=== PATIENT | female | born 1970 | race Caucasian/White ===

== ENCOUNTER → 2017-05-03 12:29 | Outpatient (CLI) | payer OTHER, SELFPAY ==
--- NOTE | 2017-05-03 12:34 | XR_ITS ---
XR hip RT 2-3V w/pelvis Ordering Physician: TAYLOR Whyte Patient Age: 46 years: Female HISTORY: ITS.REASON: right hip pain TECHNIQUE: 2 view right hip AP and frog-leg view with AP pelvis. COMPARISON :Five-view lumbar spine series which includes right hip and majority pelvis from 05/26/2016 FINDINGS The right femoral head and neck are intact with no fracture.. Femoral head normal density and contour Note cleft-like appearance at the superior rim of acetabulum appears similar on the AP pelvis view versus 2017 AP view of pelvis from lumbar spine series.. . There is minor step-off at the articular aspect of rim of right acetabulum on today's studies of right hip & I suspect underlying degenerative changes with subchondral cystic here... Most likely stable but suspect reflectsdeveloping degenerative changes right hip if progressive right hip pain this feature may warrant further investigation right hip with MR to further evaluate acetabular contour at the acetabular rim & acetabular labrum. . Left hip appears stable and satisfactory. Mild hypertrophic lipping at the rim of the left acetabulum is similar to that seen on right. AP pelvis. Intact. 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 This is a stable feature and was previously evident IMPRESSION No acute findings at the right hip. No fracture Minor hypertrophic lipping and with minor irregularity at the superior rim of acetabulum is seen bilaterally at the hips; most likely stable since 2017.
== END ==
PROVIDERS: PCP Physician Assistant; Visit Provider Physician Assistant
DX: M25.551 Pain in right hip (principal)
CPT/HCPCS: 73502

== ENCOUNTER 2017-05-03 22:26 | Emergency (ER) | payer OTHER, SELFPAY ==
[2017-05-03 22:30] VITALS: BP 157/73; PULSE 73; RESP 18; TEMP 36.7; O2SAT 96; BMI 54.1
--- NOTE | 2017-05-03 22:49 | HMH.EDUROGF ---
ED Disposition Clinical Impression: Cystitis Disposition: Home, Self-Care Condition on Discharge: Good Instructions: DI for Acute Cystitis Additional Instructions: use meds and see pcp for follow up and culture results Prescriptions: Ciprofloxacin HCl [Cipro 500mg Tab] 500 mg PO BID #14 tab Phenazopyridine HCl [Pyridium 200mg Tablet] 200 pow PO TID #6 tab Referrals: Chapis Bennett PA [Primary Care Provider] - - Critical Care Critical Care Time: No Attestation: On 05/03/17, the high probability of a clinically significant, sudden or life threatening deterioration of the following system(s) required my full and direct attention, intervention and personal management. The time I documented below is in addition to time spent performing reported procedures but includes the following listed in this critical care notation. Medical Decision Making - Medical Records Medical records reviewed: Yes: I reviewed the patient's medical records. Vital Signs: 05/03/17 22:30 Temperature 98.0 F Temperature Source Oral Pulse Rate [Right Radial] 73 Respiratory Rate 18 Blood Pressure [Right Arm] 157/73 Blood Pressure Mean [Right Arm] 101 Blood Pressure Source [Right Arm] Automatic Cuff Blood Pressure Position [Right Arm] Sitting 02 Sat by Pulse Oximetry 96 Oxygen Delivery Method Room Air - Lab Data Lab results reviewed: Yes: I reviewed the patient's lab results. Lab Results 05/03/17 22:53: Urine Color Yellow, Urine Appearance Clear, Urine pH 6.0, Ur Specific [place] 1.025, Urine Protein Negative, Urine Glucose (UA) Negative, Urine Ketones Negative, Urine Blood Negative, Urine Nitrate Negative, Urine Bilirubin Negative, Urine Urobilinogen 0.2, Ur Leukocyte Esterase Negative, Urine WBC 3-5, Ur Squamous Epith Cells 5-10, Urine Bacteria 1+ 05/03/17 22:53: Urine HCG, Qual Negative 05/03/17 23:38: WBC 8.9, RBC 4.11 L, Hgb 12.3, Hct 36.6 L, MCV 89.1, MCH 29.9, MCHC 33.6, RDW 13.5, Plt Count 241, MPV 7.6, Neut % (Auto) 57.9, Lymph % (Auto) 32.6, [place] % (Auto) 6.5, Eos % (Auto) 2.5, Baso % (Auto) 0.5, Neut # (Auto) 5.1, Lymph # (Auto) 2.9, [place] # (Auto) 0.6, Eos # (Auto) 0.2, Baso # (Auto) 0.0 05/03/17 23:38: Sodium 137, Potassium 4.1, Chloride 105, Carbon Dioxide 26, Anion Gap 10.1, BUN 18, Creatinine 0.83, Estimated Creat Clear 79, Estimated GFR 74, Est GFR ( Amer) 90, Glucose 137 H, Calcium 8.5, Total Bilirubin 0.1 L, AST 14 L, ALT 26, Alkaline Phosphatase 73, Total Protein 6.6, Albumin 2.8 L, Globulin 3.8 H, Albumin/Globulin Ratio 0.7 L Result diagrams: 05/03/17 23:38 05/03/17 23:38 Orders (Tests/Meds): ORDERS Category Date Time Status CT abdomen pelvis wo con Stat Cat Scan 05/03/17 23:25 Taken - CT Data CT Scan: Abdomen, Pelvis Time Received: 01:[address] Reviewed: Yes: I have viewed the radiologist's interpretation Preliminary Findings: Normal/NAD - Mason Inquiry Pt receiving controlled substance: No Female Urogenital HPI - General Chief complaint: Urogenital-Female Stated complaint: lower abd pain Time Seen by Provider: 05/03/17 22:50 Mode of Arrival: Ambulatory Source of Information: Patient, Relative, Medical Record Limitations: No Limitations Description of Symptoms (Recalled from ER Triage Doc. by RN): Pt reports sharp lower central abdominal pain that started suddenly about 45 minutes ago. Pt reports frequency and burning with urination, and lower back pain. - History of Present Illness HPI Narrative: lower abd pain with freq and dysuria which started tonight Complaint: dysuria Onset (ago): hour(s) Radiation: non-radiating Severity: moderate Duration: intermittent Relieving factors: none Exacerbating factors: urination Urinary Symptoms: dysuria, frequency : no - Related Data Home Medications Medication Instructions Recorded Confirmed amitriptyline 25 mg tablet 25 mg PO QHS 04/22/17 05/03/17 buspirone 5 mg tablet 5 mg PO ONCE 04/22/17 05/03/17 wilmar
[2017-05-03 22:53] LABS: Appearance,Urine CLEAR (Clear); Bilirubin,Urine Negative (Negative); Blood, Urine Negative (Negative); Color,Urine YELLOW (Yellow); Glucose,Urine (UA) Negative (Negative); Ketones,Urine Negative (Negative); Leukocyte Esterase,Urine Negative (Negative); Microscopic, Urine URINE MICROSCOPIC (MICROSCOPIC); Nitrate,Urine Negative (Negative); Protein,Urine Negative (Negative); Specific Gravity, Urine 1.025 (1.005-1.030); Urobilinogen,Urine 0.2 EU/dl (0.2)
[2017-05-03 23:01] LABS: Bacteria,Urine 1+ /lpf; Urine Pregnancy, HCG Qual. Negative (Negative)
--- NOTE | 2017-05-03 23:25 | CT_ITS ---
CT abdomen pelvis wo con CLINICAL INDICATION: Localize lower abdominal pain ITS.REASON: abd pain ORDERING PHYSICIAN: Ye Kenny MD PATIENT AGE: 46 years COMPARISON: None TECHNIQUE: Axial images obtained with sagittal and coronal reformats. PROCEDURE: Oral Contrast: None IV Contrast: None . FINDINGS: No acute finding in the lung bases. Suboptimal evaluation of bowel loops intra-abdominal organs due to lack of IV and oral contrast and due to patient's body habitus with extensive streak/beam hardening artifact. Fatty liver with mild hepatomegaly at 25 cm cephalad to caudad. No obvious focal liver lesions. Prior cholecystectomy without obvious biliary dilatation. Spleen, adrenal glands, pancreas, kidneys, ureters, and urinary bladder have an unremarkable unenhanced appearance. No intestinal obstruction or free air. Unremarkable appendix. No evidence of diverticulitis. No pelvic mass or focal inflammatory change. There is mild thickening of the distal esophagus with small hiatal hernia. Prior hysterectomy. No acute bony anomalies. IMPRESSION: 1. No acute abdominal pelvic findings. 2. Fatty liver with hepatomegaly. 3. Mild thickening of the distal esophagus which may be seen with esophagitis with small hiatal hernia
[2017-05-03 23:40] LABS: Basophils % 0.5 % (0.1-2.0); Eosinophils # 0.2 K/mm3 (0.0-0.4); Eosinophils % 2.5 % (0.1-12.0); Hematocrit 36.6 % (37.0-47.0); Hemoglobin 12.3 g/dL (12.2-16.2); Lymphocytes # 2.9 K/mm3 (0.7-4.5); Lymphocytes % 32.6 K/mm3 (10-50); Mean Corpuscular HGB Conc 33.6 g/dL (31.8-35.4); Mean Corpuscular Hemoglobin 29.9 pg (27.0-31.2); Mean Corpuscular Volume 89.1 fl (81-99); Mean Platelet Volume 7.6 fl (7.4-10.4); Monocytes # 0.6 K/mm3 (0.1-1.0); Monocytes % 6.5 % (1.7-9.3); Neutrophils # 5.1 K/mm3 (1.8-7.8); Neutrophils % 57.9 % (37.0-80.0); Platelet Count 241 K/mm3 (142-424); Red Blood Count 4.11 M/mm3 (4.20-5.40); Red Cell Distribution Width 13.5 % (11.5-17.5); White Blood Count 8.9 K/mm3 (4.8-10.8)
[2017-05-03 23:52] LABS: Alanine Aminotransferase 26 U/L (12-78); Albumin Level 2.8 gm/dL (3.4-5.0); Albumin/Globulin Ratio 0.7 (1.1-1.8); Alkaline Phosphatase 73 U/L (46-116); Anion Gap 10.1 mEq/L (5-15); Aspartate Amino Transferase 14 U/L (15-37); Bilirubin,Total 0.1 mg/dL (0.2-1.0); Blood Urea Nitrogen 18 mg/dL (7-18); Calcium 8.5 mg/dL (8.5-10.1); Carbon Dioxide 26 mmol/L (21.0-32.0); Chloride 105 mmol/L (98-107); Creatinine Clearance Estimated 79 mL/min (0-300); Creatinine,Serum 0.83 mg/dL (0.55-1.02); Estimated Glomerular Filt Rate 74 ml/min (>60); GFR (African American) 90 ML/MIN (>60); Globulin 3.8 gm/dl (1.3-3.2); Glucose 137 mg/dL (74-106); Potassium 4.1 mmoL/L (3.5-5.1); Sodium 137 mmol/L (136-145); Total Protein,Serum 6.6 gm/dL (6.4-8.2)
[2017-05-04 01:21] VITALS: BP 150/70; PULSE 70; RESP 18; TEMP 36.7; O2SAT 98
== END 2017-05-04 01:21 | disposition home or self-care (01) ==
PROVIDERS: Emergency Provider Emergency Medicine; Family Provider Physician Assistant; PCP Physician Assistant
DX: N30.00 Acute cystitis without hematuria (principal); K21.9 Gastro-esophageal reflux disease without esophagitis; E78.5 Hyperlipidemia, unspecified; I10 Essential (primary) hypertension; F41.8 Other specified anxiety disorders; Z88.0 Allergy status to penicillin; Z79.899 Other long term (current) drug therapy
CPT/HCPCS: 74176; 80053; 81001; 81025; 85025; 87086; 99282

== ENCOUNTER 2017-05-20 18:32 | Emergency (ER) | payer OTHER, SELFPAY ==
[2017-05-20 19:32] VITALS: BP 155/85; PULSE 90; RESP 12; TEMP 37.3; O2SAT 98; BMI 117.4
--- NOTE | 2017-05-20 19:58 | CT_ITS ---
CT abdomen pelvis wo con CLINICAL INDICATION: Nausea, vomiting, and diarrhea ITS.REASON: ABD PAIN, N/V/D ORDERING PHYSICIAN: Lj Hayes MD PATIENT AGE: 46 years COMPARISON: 05/03/2017 TECHNIQUE: Axial images obtained with sagittal and coronal reformats. PROCEDURE: Oral Contrast: None IV Contrast: None . FINDINGS: Lung bases are clear. Mild thickening of the distal esophagus with small hiatal hernia as before which may be seen with esophagitis There is mild hepatic steatosis with mild hepatomegaly. No focal liver lesion is evident. Prior cholecystectomy. The spleen, adrenal glands, pancreas, and kidneys are unremarkable. No intestinal obstruction or free air. Unremarkable appendix scattered diverticula without diverticulitis. No acute bony anomalies. IMPRESSION: 1. No acute intra-abdominal or pelvic findings 2. Fatty liver with mild hepatomegaly. 3. Mild thickening of the distal esophagus with small hiatal hernia
[2017-05-20 20:05] LABS: Basophils % 0.2 % (0.1-2.0); Eosinophils # 0.2 K/mm3 (0.0-0.4); Eosinophils % 1.3 % (0.1-12.0); Hematocrit 46.5 % (37.0-47.0); Hemoglobin 15.1 g/dL (12.2-16.2); Lymphocytes # 1.1 K/mm3 (0.7-4.5); Lymphocytes % 8.6 K/mm3 (10-50); Mean Corpuscular HGB Conc 32.5 g/dL (31.8-35.4); Mean Corpuscular Hemoglobin 29.7 pg (27.0-31.2); Mean Corpuscular Volume 91.5 fl (81-99); Mean Platelet Volume 7.4 fl (7.4-10.4); Monocytes # 0.6 K/mm3 (0.1-1.0); Neutrophils # 10.4 K/mm3 (1.8-7.8); Neutrophils % 84.8 % (37.0-80.0); Platelet Count 258 K/mm3 (142-424); Red Blood Count 5.08 M/mm3 (4.20-5.40); Red Cell Distribution Width 13.4 % (11.5-17.5); White Blood Count 12.2 K/mm3 (4.8-10.8)
[2017-05-20 20:17] LABS: Albumin Level 3.1 gm/dL (3.4-5.0); Albumin/Globulin Ratio 0.7 (1.1-1.8); Alkaline Phosphatase 92 U/L (46-116); Amylase 59 U/L (25-125); Anion Gap 13.2 mEq/L (5-15); Aspartate Amino Transferase 24 U/L (15-37); Bilirubin,Total 0.3 mg/dL (0.2-1.0); Blood Urea Nitrogen 17 mg/dL (7-18); Calcium 8.5 mg/dL (8.5-10.1); Carbon Dioxide 27 mmol/L (21.0-32.0); Chloride 101 mmol/L (98-107); Creatinine Clearance Estimated 65 mL/min (0-300); Creatinine,Serum 1.01 mg/dL (0.55-1.02); Estimated Glomerular Filt Rate 59 ml/min (>60); GFR (African American) 71 ML/MIN (>60); Globulin 4.6 gm/dl (1.3-3.2); Glucose 119 mg/dL (74-106); Lipase 162 u/L (73-393); Potassium 4.2 mmoL/L (3.5-5.1); Sodium 137 mmol/L (136-145); Total Protein,Serum 7.7 gm/dL (6.4-8.2)
[2017-05-20 20:44] LABS: Alanine Aminotransferase 40 U/L (12-78)
[2017-05-20 21:03] VITALS: BP 155/84; PULSE 87; RESP 18; TEMP 37.7; O2SAT 97
[2017-05-20 21:30] VITALS: BP 149/82; PULSE 83; RESP 14; O2SAT 97
--- NOTE | 2017-05-20 21:35 | HMH.EDNVD ---
ED Disposition Clinical Impression: Gastroenteritis Disposition: Home, Self-Care Condition on Discharge: Good Instructions: DI for Viral Gastroenteritis -- Adult Additional Instructions: Fluids, take the Zofran as needed for nausea/vomiting and [id number] Imodium as needed for diarrhea. If not better follow-up with your family doctor within 24 hours. Prescriptions: Ondansetron [Zofran 4mg ODT] 4 mg PO QIDP PRN #20 tab.rapdis PRN Reason: Nausea Referrals: Chapis Bennett PA [Primary Care Provider] - Time of Disposition: 21:36 - Critical Care Critical Care Time: No Attestation: On 05/20/17, the high probability of a clinically significant, sudden or life threatening deterioration of the following system(s) required my full and direct attention, intervention and personal management. The time I documented below is in addition to time spent performing reported procedures but includes the following listed in this critical care notation. Medical Decision Making - Medical Records Medical records reviewed: Yes: I reviewed the patient's medical records. Vital Signs: 05/20/17 19:32 05/20/17 21:03 05/20/17 21:30 Temperature 99.1 F 99.9 F H Temperature Source Oral Oral Pulse Rate Pulse Rate [Right Brachial] 90 87 83 Respiratory Rate 12 18 14 Blood Pressure Blood Pressure [Right Arm] 155/85 155/84 149/82 Blood Pressure Mean [Right Arm] 108 107 104 Blood Pressure Source Blood Pressure Source [Right Arm] Automatic Cuff Automatic Cuff Automatic Cuff Blood Pressure Position Blood Pressure Position [Right Arm] Sitting Sitting Sitting 02 Sat by Pulse Oximetry 98 97 97 Oxygen Delivery Method Room Air Room Air Room Air 05/20/17 21:56 Temperature 99.3 F Temperature Source Oral Pulse Rate 84 Pulse Rate [Right Brachial] Respiratory Rate 18 Blood Pressure 149/82 Blood Pressure [Right Arm] Blood Pressure Mean [Right Arm] Blood Pressure Source Automatic Cuff Blood Pressure Source [Right Arm] Blood Pressure Position Sitting Blood Pressure Position [Right Arm] 02 Sat by Pulse Oximetry Oxygen Delivery Method Room Air - Lab Data Lab results reviewed: Yes: I reviewed the patient's lab results. Lab Results 05/20/17 19:45: WBC 12.2 H, RBC 5.08, Hgb 15.1, Hct 46.5, MCV 91.5, MCH 29.7, MCHC 32.5, RDW 13.4, Plt Count 258, MPV 7.4, Neut % (Auto) 84.8 H, Lymph % (Auto) 8.6 L, [place] % (Auto) 5.0, Eos % (Auto) 1.3, Baso % (Auto) 0.2, Neut # (Auto) 10.4 H, Lymph # (Auto) 1.1, [place] # (Auto) 0.6, Eos # (Auto) 0.2, Baso # (Auto) 0.0 05/20/17 19:45: Sodium 137, Potassium 4.2, Chloride 101, Carbon Dioxide 27, Anion Gap 13.2, BUN 17, Creatinine 1.01, Estimated Creat Clear 65, Estimated GFR 59, Est GFR ( Amer) 71, Glucose 119 H, Calcium 8.5, Total Bilirubin 0.3, AST 24, ALT 40, Alkaline Phosphatase 92, Total Protein 7.7, Albumin 3.1 L, Globulin 4.6 H, Albumin/Globulin Ratio 0.7 L, Amylase 59, Lipase 162 Result diagrams: 05/20/17 19:45 05/20/17 19:45 Orders (Tests/Meds): ED MEDICATIONS Discontinued Medications Generic Name Dose Route Start Last Admin Trade Name Freq PRN Reason Stop Dose Admin Diphenoxylate HCl/Atropine 5 mg 05/20/17 20:51 05/20/17 20:56 Lomotil 2.5mg Tablet PO 05/20/17 20:52 5 mg ONCE ONE Administration Sodium Chloride 1,000 mls @ 999 mls/hr 05/20/17 20:00 05/20/17 20:03 Sod Chlor 0.9% 1000ml Bag IV 05/20/17 21:00 999 mls/hr .Q1H1M NASIR Administration Loperamide HCl 4 mg 05/20/17 20:51 05/20/17 20:55 Imodium 2 Mg Capsule PO 05/20/17 20:52 4 mg ONCE ONE Administration Ondansetron HCl 4 mg 05/20/17 19:59 05/20/17 20:02 Zofran 4mg/2ml Vial IV 05/20/17 20:00 4 mg ONCE ONE Administration Promethazine HCl 12.5 mg 05/20/17 20:33 05/20/17 20:46 Phenergan 25mg/Ml 1ml Vial IV 05/20/17 20:34 12.5 mg ONCE ONE Administration Promethazine HCl 1 kanwal 05/20/17 21:38 05/20/17 21:45 Phenergan 25mg Tablet Take Home Pac
--- NOTE | 2017-05-20 21:38 | ED_ITS ---
ED Disposition Clinical Impression: Gastroenteritis Disposition: Home, Self-Care Condition on Discharge: Good Instructions: DI for Viral Gastroenteritis -- Adult Additional Instructions: Fluids, take the Zofran as needed for nausea/vomiting and [id number] Imodium as needed for diarrhea. If not better follow-up with your family doctor within 24 hours. Prescriptions: Ondansetron [Zofran 4mg ODT] 4 mg PO QIDP PRN #20 tab.rapdis PRN Reason: Nausea Referrals: Chapis Bennett PA [Primary Care Provider] - Time of Disposition: 21:36 - Critical Care Critical Care Time: No Attestation: On 05/20/17, the high probability of a clinically significant, sudden or life threatening deterioration of the following system(s) required my full and direct attention, intervention and personal management. The time I documented below is in addition to time spent performing reported procedures but includes the following listed in this critical care notation. Medical Decision Making - Medical Records Medical records reviewed: Yes: I reviewed the patient's medical records. Vital Signs: 05/20/17 19:32 05/20/17 21:03 05/20/17 21:30 Temperature 99.1 F 99.9 F H Temperature Source Oral Oral Pulse Rate Pulse Rate [Right Brachial] 90 87 83 Respiratory Rate 12 18 14 Blood Pressure Blood Pressure [Right Arm] 155/85 155/84 149/82 Blood Pressure Mean [Right Arm] 108 107 104 Blood Pressure Source Blood Pressure Source [Right Arm] Automatic Cuff Automatic Cuff Automatic Cuff Blood Pressure Position Blood Pressure Position [Right Arm] Sitting Sitting Sitting 02 Sat by Pulse Oximetry 98 97 97 Oxygen Delivery Method Room Air Room Air Room Air 05/20/17 21:56 Temperature 99.3 F Temperature Source Oral Pulse Rate 84 Pulse Rate [Right Brachial] Respiratory Rate 18 Blood Pressure 149/82 Blood Pressure [Right Arm] Blood Pressure Mean [Right Arm] Blood Pressure Source Automatic Cuff Blood Pressure Source [Right Arm] Blood Pressure Position Sitting Blood Pressure Position [Right Arm] 02 Sat by Pulse Oximetry Oxygen Delivery Method Room Air - Lab Data Lab results reviewed: Yes: I reviewed the patient's lab results. Lab Results 05/20/17 19:45: WBC 12.2 H, RBC 5.08, Hgb 15.1, Hct 46.5, MCV 91.5, MCH 29.7, MCHC 32.5, RDW 13.4, Plt Count 258, MPV 7.4, Neut % (Auto) 84.8 H, Lymph % (Auto ) 8.6 L, [place] % (Auto) 5.0, Eos % (Auto) 1.3, Baso % (Auto) 0.2, Neut # (Auto) 10.4 H, Lymph # (Auto) 1.1, [place] # (Auto) 0.6, Eos # (Auto) 0.2, Baso # (Auto) 0.0 05/20/17 19:45: Sodium 137, Potassium 4.2, Chloride 101, Carbon Dioxide 27, Anion Gap 13.2, BUN 17, Creatinine 1.01, Estimated Creat Clear 65, Estimated GFR 59, Est GFR ( Amer) 71, Glucose 119 H, Calcium 8.5, Total Bilirubin 0.3, AST 24, ALT 40, Alkaline Phosphatase 92, Total Protein 7.7, Albumin 3.1 L, Globulin 4.6 H, Albumin/Globulin Ratio 0.7 L, Amylase 59, Lipase 162 Result diagrams: 05/20/17 19:45 05/20/17 19:45 Orders (Tests/Meds): ED MEDICATIONS Discontinued Medications Generic Name Dose Route Start Last Admin Trade Name Freq PRN Reason Stop Dose Admin Diphenoxylate HCl/Atropine 5 mg 05/20/17 20:51 05/20/17 20:56 Lomotil 2.5mg Tablet PO 05/20/17 20:52 5 mg
[2017-05-20 21:56] VITALS: BP 149/82; PULSE 84; RESP 18; TEMP 37.4; O2SAT 97
== END 2017-05-20 21:40 | disposition home or self-care (01) ==
LOC: UTC 18:37 → ER 19:24
PROVIDERS: Emergency Medicine; Emergency Provider Emergency Medicine; Family Provider Physician Assistant; PCP Physician Assistant
DX: K52.9 Noninfective gastroenteritis and colitis, unspecified (principal); K21.9 Gastro-esophageal reflux disease without esophagitis; E78.5 Hyperlipidemia, unspecified; I10 Essential (primary) hypertension; F41.8 Other specified anxiety disorders; Z79.899 Other long term (current) drug therapy; Z88.0 Allergy status to penicillin
CPT/HCPCS: 74176; 80053; 82150; 83690; 85025; 96365; 96367; 96374; 96375; 99283; J2405

== ENCOUNTER → 2018-03-30 08:10 | Outpatient (CLI) | payer OTHER, SELFPAY ==
[2018-03-30 08:34] LABS: Basophils # 0.1 K/mm3 (0-0.2); Basophils % 0.6 % (0.1-2.0); Eosinophils # 0.2 K/mm3 (0.0-0.4); Eosinophils % 1.9 % (0.1-12.0); Hematocrit 40.7 % (37.0-47.0); Lymphocytes # 3.1 K/mm3 (0.7-4.5); Lymphocytes % 29.4 % (10-50); Mean Corpuscular HGB Conc 31.8 g/dL (31.8-35.4); Mean Corpuscular Hemoglobin 29.7 pg (27.0-31.2); Mean Corpuscular Volume 93.4 fl (81-99); Mean Platelet Volume 7.3 fl (7.4-10.4); Monocytes # 0.6 K/mm3 (0.1-1.0); Monocytes % 5.9 % (1.7-9.3); Neutrophils # 6.5 K/mm3 (1.8-7.8); Neutrophils % 62.3 % (37.0-80.0); Platelet Count 294 K/mm3 (142-424); Red Blood Count 4.36 M/mm3 (4.20-5.40); Red Cell Distribution Width 13.7 % (11.5-17.5); White Blood Count 10.4 K/mm3 (4.8-10.8)
[2018-03-30 10:14] LABS: Alanine Aminotransferase 24 U/L (12-78); Albumin Level 2.8 gm/dL (3.4-5.0); Albumin/Globulin Ratio 0.7 (1.1-1.8); Alkaline Phosphatase 84 U/L (46-116); Anion Gap 14.1 mEq/L (5-15); Aspartate Amino Transferase 15 U/L (15-37); Bilirubin,Total 0.3 mg/dL (0.2-1.0); Blood Urea Nitrogen 13 mg/dL (7-18); Calcium 8.7 mg/dL (8.5-10.1); Carbon Dioxide 26 mmol/L (21.0-32.0); Chloride 104 mmol/L (98-107); Chol/HDL Ratio 4.4 (1-3.5); Cholesterol 179 mg/dL (140-200); Creatinine,Serum 0.86 mg/dL (0.55-1.02); Estimated Glomerular Filt Rate 71 ml/min (>60); GFR (African American) 86 ML/MIN (>60); Globulin 3.8 gm/dl (1.3-3.2); Glucose 145 mg/dL (74-106); HDL Cholesterol 41 mg/dL (29-89); LDL Cholesterol 80 mg/dL (0-130); Potassium 4.1 mmoL/L (3.5-5.1); Sodium 140 mmol/L (136-145); Thyroid Stimulating Hormone 7.84 uIU/ml (0.358-3.740); Total Protein,Serum 6.6 gm/dL (6.4-8.2); Triglycerides 289 mg/dL (30-200); VLDL Cholesterol 58 mg/dL (0-40)
== END ==
PROVIDERS: Visit Provider Nurse Practitioner Family
DX: R53.83 Other fatigue (principal); E78.5 Hyperlipidemia, unspecified; E03.9 Hypothyroidism, unspecified
CPT/HCPCS: 36415; 80053; 80061; 82652; 84443; 85025

== ENCOUNTER → 2018-04-06 08:20 | Outpatient (CLI) | payer OTHER, SELFPAY ==
--- NOTE | 2018-04-06 08:21 | US_ITS ---
US abdomen complete HISTORY: ITS.REASON: abdominal pain ORDERING PHYSICIAN: Neida Pop PATIENT AGE: 47 years COMPARISON: None FINDINGS: The study is limited technically due to patient's body habitus. PANCREAS:Unremarkable. No obvious mass or abnormal fluid collection. No ductal dilatation LIVER:Fatty liver. Postcholecystectomy. Appropriate direction of blood flow within the portal vein. No obvious liver lesions demonstrated RIGHT KIDNEY:Not well delineated. No obvious hydronephrosis LEFT KIDNEY:Unremarkable. No hydronephrosis. Normal size and echogenicity. GALLBLADDER:Status post cholecystectomy. Common bile duct is normal at 4 mm. AORTA:Not imaged SPLEEN:Unremarkable. Normal size and echogenicity ASCITES:None demonstrated. IMPRESSION: Status post cholecystectomy. Fatty liver. Otherwise negative abdominal ultrasound with limitations
== END ==
PROVIDERS: PCP Nurse Practitioner Family; Visit Provider Nurse Practitioner Family
DX: R10.9 Unspecified abdominal pain (principal)
CPT/HCPCS: 76700

== ENCOUNTER → 2018-05-19 14:03 | Outpatient (CLI) | payer OTHER, SELFPAY ==
[2018-05-19 14:42] LABS: Basophils # 0.1 K/mm3 (0-0.2); Basophils % 0.7 % (0.1-2.0); Eosinophils # 0.3 K/mm3 (0.0-0.4); Eosinophils % 2.6 % (0.1-12.0); Hematocrit 38.7 % (37.0-47.0); Hemoglobin 12.5 g/dL (12.2-16.2); Lymphocytes % 20.4 % (10-50); Mean Corpuscular HGB Conc 32.2 g/dL (31.8-35.4); Mean Corpuscular Hemoglobin 29.4 pg (27.0-31.2); Mean Corpuscular Volume 91.2 fl (81-99); Mean Platelet Volume 7.7 fl (7.4-10.4); Monocytes # 0.3 K/mm3 (0.1-1.0); Monocytes % 3.3 % (1.7-9.3); Neutrophils % 73.1 % (37.0-80.0); Platelet Count 241 K/mm3 (142-424); Red Blood Count 4.24 M/mm3 (4.20-5.40); White Blood Count 9.6 K/mm3 (4.8-10.8)
[2018-05-19 15:25] LABS: Alanine Aminotransferase 25 U/L (12-78); Albumin Level 2.6 gm/dL (3.4-5.0); Albumin/Globulin Ratio 0.7 (1.1-1.8); Alkaline Phosphatase 89 U/L (46-116); Anion Gap 13.1 mEq/L (5-15); Aspartate Amino Transferase 18 U/L (15-37); Bilirubin,Total 0.2 mg/dL (0.2-1.0); Blood Urea Nitrogen 12 mg/dL (7-18); Calcium 8.5 mg/dL (8.5-10.1); Carbon Dioxide 25 mmol/L (21.0-32.0); Chloride 103 mmol/L (98-107); Creatinine,Serum 0.83 mg/dL (0.55-1.02); Estimated Glomerular Filt Rate 74 ml/min (>60); Ferritin 62 ng/mL (8-388); GFR (African American) 89 ML/MIN (>60); Globulin 3.9 gm/dl (1.3-3.2); Glucose 206 mg/dL (74-106); Potassium 4.1 mmoL/L (3.5-5.1); Sodium 137 mmol/L (136-145); Total Protein,Serum 6.5 gm/dL (6.4-8.2)
[2018-05-19 15:56] LABS: INR 0.94 (0.9-1.1); Prothrombin Time 9.7 seconds (9.4-11.8)
[2018-05-21 08:33] LABS: Hep B Core Ab, Total Negative (Negative); Hepatitis B Surface Antigen Negative (Negative); Iron 77 ug/dL (27-159); Iron Saturation 24 % (15-55); UIBC 243 ug/dL (131-425)
[2018-05-21 10:15] LABS: Hep A Ab, Total Negative (Negative); Hepatitis B Surf Ab Quant <3.1 mIU/mL (Immunity>9.9); Hepatitis C Antibody <0.1 s/co ratio (0.0-0.9)
[2018-05-23 07:59] LABS: Actin (Smooth Muscle) Antibody 8 Units (0-19); Mitochondrial (M2) Antibody 15.8 Units (0.0-20.0)
[2018-05-24 03:11] LABS: Antinuclear Antibodies, IFA Positive (.)
[2018-05-26 16:22] LABS: Alpha-1-Antitrypsin 187 mg/dL (90-200)
== END ==
PROVIDERS: Visit Provider Internal Medicine
DX: K76.0 Fatty (change of) liver, not elsewhere classified (principal)
CPT/HCPCS: 36415; 80053; 82103; 82104; 82728; 83540; 83550; 85025; 85610; 86038; 86255; 86256; 86704; 86706; 86708; 87340; 87380

== ENCOUNTER → 2018-05-20 14:23 | Outpatient (CLI) | payer OTHER, SELFPAY ==
[2018-05-24 06:15] LABS: ALT (SGPT) P5P 18 IU/L (0-40); AST (SGOT) P5P 22 IU/L (0-40); Alpha 2-Macroglobulins, Qn 165 mg/dL (110-276); Apolipoprotein A-1 167 mg/dL (116-209); Bilirubin, Total 0.2 mg/dL (0.0-1.2); Cholesterol, Total 166 mg/dL (100-199); Fibrosis Score 0.04 (0.00-0.21); GGT 43 IU/L (0-60); Glucose 114 mg/dL (65-99); Haptoglobin 241 mg/dL (34-200); Steatosis Score 0.62 (0.00-0.30); Triglycerides 185 mg/dL (0-149)
== END ==
PROVIDERS: Visit Provider Internal Medicine
DX: K76.0 Fatty (change of) liver, not elsewhere classified (principal)
CPT/HCPCS: 36415; 81256

== ENCOUNTER → 2018-06-24 11:20 | Outpatient (CLI) | payer OTHER, SELFPAY ==
--- NOTE | 2018-06-24 11:46 | XR_ITS ---
XR chest 2V HISTORY: ITS.REASON: cough ORDERING PHYSICIAN: Neida Pop PATIENT AGE: 47 years COMPARISON: 08/27/2016 FINDINGS: There is borderline cardiomegaly without failure. Lungs are clear. Degenerative changes are present in the thoracic spine. IMPRESSION: Borderline cardiomegaly, no change with no acute finding
== END ==
PROVIDERS: PCP Nurse Practitioner Family; Visit Provider Nurse Practitioner Family
DX: R06.02 Shortness of breath (principal); R05 Cough
CPT/HCPCS: 36415; 71046; 83880

== ENCOUNTER → 2018-06-27 14:36 | Outpatient (CLI) | payer OTHER, SELFPAY ==
--- NOTE | 2018-06-27 14:39 | XR_ITS ---
XR knee LT 3V HISTORY: Medial pain, prior popping sound ITS.REASON: pain ORDERING PHYSICIAN: Neida Pop PATIENT AGE: 47 years COMPARISON: None FINDINGS: No fracture or dislocation. No lytic or blastic change. Normal mineralization. There is slight decrease in the joint space medially. No significant hypertrophic change evident. No other significant findings IMPRESSION: Slight decrease in the joint space medially which may be related to mild osteoarthritic change otherwise negative
== END ==
PROVIDERS: PCP Emergency Medicine; Visit Provider Nurse Practitioner Family
DX: M25.562 Pain in left knee (principal)
CPT/HCPCS: 73562

== ENCOUNTER → 2018-08-09 13:13 | Outpatient (CLI) | payer OTHER, SELFPAY | PROVIDERS: PCP Nurse Practitioner Family; Visit Provider Nurse Practitioner Family | DX: R06.02 Shortness of breath (principal); R06.83 Snoring; G47.33 Obstructive sleep apnea (adult) (pediatric) | CPT/HCPCS: 95806 ==

== ENCOUNTER → 2018-08-11 12:51 | Outpatient (CLI) | payer OTHER, SELFPAY ==
--- NOTE | 2018-08-11 12:52 | CA_ITS ---
PROCEDURE: 2-D M-mode and color Doppler study INDICATIONS FOR THE TEST: Chest pain+ COPD Heart Murmur Tobacco Smoking Palpitations Fatigue+ Syncope Edema+ Hypertension+Diabetes Mellitus Rheumatic Fever SOB+JEFFRIES+Obesity Hyperlipidemia+ Family History HD Additional History GERD PATIENT INFORMATION HEIGHT: 66 WEIGHT: 332 GENDER: Female B/P: 144/69 2-D/M-MODE INTERPRETATION: 2-D MEASUREMENTS OBSERVED VALUES IN CMS Right Ventricular Dimension (RVDd) 2.8 Interventricular Septum (Thickness)(IVsd) 1.0 Left Ventricular Internal Dimensions(LVIDd) 4.9 Left Ventricular Posterior Wall (Thickness)(LVPWd) 1.0 Aortic Root 3.1 Aortic Cusp Separation 2.3 Left Atrial Dimensions (LAD) 3.6 2D 1. Left atrium is mildly enlarged, left ventricle is normal size, mild qualitative concentric left ventricular hypertrophy, visually estimated ejection fraction 55% with no regional wall motion abnormality. 2. The right atrium is normal size, right ventricle is mildly enlarged with normal contractility. 3. The aortic valve is minimally thickened and fibrosed. 4. The mitral and tricuspid valvular grossly normal. 5. The pulmonic valve is poorly visualized. 6. No significant pericardial effusion noted. DOPPLER INTERROGATION: Doppler interrogation of the aortic, mitral and tricuspid valvular presence of mild mitral and tricuspid regurgitation, tricuspid regurgitation jet velocity is inadequate for calculation of the right ventricular systolic pressure, grade 1 diastolic dysfunction seen without tissue Doppler evidence of raised left atrial pressure. CONCLUSION: 1. Normal left ventricular size, mild concentric left ventricular hypertrophy, visually estimated ejection fraction 55% with no regional wall motion abnormality, grade 1 diastolic dysfunction seen without tissue Doppler evidence of raised left atrial pressure. 2. Mildly enlarged right ventricle with normal contractility. 3. Mild mitral and tricuspid regurgitation 4. No significant pericardial effusion noted.
== END ==
PROVIDERS: PCP Nurse Practitioner Family; Visit Provider Internal Medicine
DX: R06.00 Dyspnea, unspecified (principal); R07.9 Chest pain, unspecified; E78.5 Hyperlipidemia, unspecified; I10 Essential (primary) hypertension; I51.89 Other ill-defined heart diseases; R60.0 Localized edema
CPT/HCPCS: 93306

== ENCOUNTER → 2018-08-15 16:01 | Outpatient (CLI) | payer OTHER, SELFPAY ==
[2018-08-15 18:07] LABS: Thyroid Stimulating Hormone 3.59 uIU/ml (0.358-3.740)
[2018-08-19 06:24] LABS: H. pylori Breath Test Negative (Negative)
== END ==
PROVIDERS: Visit Provider Nurse Practitioner Family
DX: R10.9 Unspecified abdominal pain (principal); E03.9 Hypothyroidism, unspecified
CPT/HCPCS: 36415; 83013; 84443

== ENCOUNTER → 2018-11-22 13:27 | Outpatient (CLI) | payer OTHER, SELFPAY ==
--- NOTE | 2018-11-22 13:28 | US_ITS ---
APPROVED REPORT Exam Type: Lower Extremity Segmental Pressures Soap Slabber: Nicole Best RVT Indications Claudication: Bilaterally Rest Pain: Bilaterally Risk Factors Hypertension Hyperlipidemia Obesity Pressures/Indices Right Indices Left Indices Brachial 160.00 mmHg Brachial 159.00 mmHg Low Thigh 178.00 mmHg 1.11 Low Thigh 181.00 mmHg 1.13 Calf 196.00 mmHg 1.23 Calf 194.00 mmHg 1.21 Ankle(PT) 202.00 mmHg 1.26 Ankle(PT) 202.00 mmHg 1.26 Ankle(DP) 190.00 mmHg 1.19 Ankle(DP) 197.00 mmHg 1.23 Digit 161.00 mmHg 1.01 Digit 156.00 mmHg 0.98 Findings RT EDENILSON: 1.26 LT EDENILSON: 1.26 RT TBI: 1.01 LT TBI:0.98 NORMAL PULSES BILATERAL. NORMAL WAVEFORMS BILATERAL. Conclusion Normal Electronically signed by : Ferny Jeffries MD 11/23/2018 20:03:41
== END ==
PROVIDERS: PCP Emergency Medicine; Visit Provider Nurse Practitioner Family
DX: M79.604 Pain in right leg (principal); M79.605 Pain in left leg; R53.1 Weakness
CPT/HCPCS: 93923

== ENCOUNTER → 2019-01-23 11:48 | Outpatient (CLI) | payer OTHER, SELFPAY ==
--- NOTE | 2019-01-23 12:18 | XR_ITS ---
PROCEDURE: XR LUMBAR SPINE 2-3V CLINICAL INDICATION: pain COMPARISON: No exams were available for comparison FINDINGS: There is degenerative disc disease at L1-L2 L2-L3 and L5-S1. There is partial lumbarization of S1. No fracture or dislocation. No lytic or blastic change. IMPRESSION: Mild degenerative changes Dictated by: Ferny Jeffries MD 01/23/2019 13:41 Electronically signed by Ferny Jeffries MD in [place] 01/23/2019 13:41
[2019-01-23 12:36] LABS: Erythrocyte Sedimentation Rate 25 mm/hr (0-20)
[2019-01-23 13:53] LABS: C-Reactive Protein 0.9 mg/dL (0.0-0.9); Chol/HDL Ratio 3.8 (1-3.5); Cholesterol 181 mg/dL (140-200); HDL Cholesterol 48 mg/dL (29-89); LDL Cholesterol 91 mg/dL (0-130); Triglycerides 211 mg/dL (30-200); VLDL Cholesterol 42 mg/dL (0-40)
[2019-01-24 09:20] LABS: RA Latex Turbid. <10.0 IU/mL (0.0-13.9)
[2019-01-24 11:12] LABS: Anti-Centromere B Antibodies <0.2 AI (0.0-0.9); Anti-Jo-1 <0.2 AI (0.0-0.9); Anti-Smith Antibody <0.2 AI (0.0-0.9); Antichromatin Antibodies <0.2 AI (0.0-0.9); Antiscleroderma-70 Antibodies 0.2 AI (0.0-0.9); RNP Antibodies <0.2 AI (0.0-0.9); Sjogren's Anti-SS-A <0.2 AI (0.0-0.9); Sjogren's Anti-SS-B <0.2 AI (0.0-0.9)
[2019-01-24 13:17] LABS: Anti-DNA (DS) Ab Qn <1 IU/mL (0-9)
[2019-01-25 02:13] LABS: PTT-LA 28.8 sec (0.0-51.9); dRVVT 40.4 sec (0.0-47.0)
[2019-01-25 12:19] LABS: Lupus Reflex Interpretation Comment: (.)
== END ==
PROVIDERS: PCP Emergency Medicine; Visit Provider Nurse Practitioner Family
DX: E78.5 Hyperlipidemia, unspecified (principal); M25.50 Pain in unspecified joint; M54.9 Dorsalgia, unspecified
CPT/HCPCS: 36415; 72100; 80061; 85613; 85651; 86140; 86225; 86235; 86431

== ENCOUNTER → 2019-02-06 09:39 | Outpatient (POV) | payer OTHER, SELFPAY ==
[2019-02-06 14:37] LABS: Anion Gap 13.6 mEq/L (5-15); Blood Urea Nitrogen 21 mg/dL (7-18); Calcium 8.5 mg/dL (8.5-10.1); Carbon Dioxide 26 mmol/L (21.0-32.0); Chloride 102 mmol/L (98-107); Creatinine,Serum 1.13 mg/dL (0.55-1.02); Estimated Glomerular Filt Rate 51 ml/min (>60); GFR (African American) 62 ML/MIN (>60); Glucose 136 mg/dL (74-106); Potassium 3.6 mmoL/L (3.5-5.1); Sodium 138 mmol/L (136-145)
== END ==
PROVIDERS: Nurse Practitioner Family; PCP Emergency Medicine; Visit Provider Nurse Practitioner Family
DX: R07.89 Other chest pain (principal); R06.02 Shortness of breath; E78.2 Mixed hyperlipidemia; I10 Essential (primary) hypertension; R60.0 Localized edema
CPT/HCPCS: 36415; 80048

== ENCOUNTER → 2019-02-06 12:30 | Outpatient (POV) | payer OTHER, SELFPAY | PROVIDERS: Visit Provider Specialist | DX: M79.605 Pain in left leg (principal); M79.604 Pain in right leg; M79.672 Pain in left foot; M79.671 Pain in right foot; R20.0 Anesthesia of skin; R20.2 Paresthesia of skin | CPT/HCPCS: 95886; 95909 ==

== ENCOUNTER → 2019-02-08 10:51 | Outpatient (CLI) | payer OTHER, SELFPAY ==
--- NOTE | 2019-02-08 10:52 | MM_ITS ---
PROCEDURE: MM DIG SCREENING MAMM BI W/CAD CLINICAL INDICATION: Screening There is no personal or family history of breast cancer COMPARISON: The patient had mammograms 20 years ago and they are not available for review TECHNIQUE: Standard CC and MLO images were obtained. R2 CAD reviewed. FINDINGS: The breasts are composed primarily of fat with minimal scattered fibroglandular densities throughout each breast. There is no suspicious lesion and no suspicious microcalcifications. There is a normal appearing node right axilla. IMPRESSION: Fatty type breast parenchyma with no suspicious lesions seen BI-RAD Category: 1 Negative FOLLOW-UP: 1YR 1 Year Follow-up (A letter has been sent to the patient regarding results of the study.) Dictated by: Dr. Lj Truong MD 02/09/2019 09:[address] Lj Truong MD in [place] 02/09/2019 09:19
== END ==
PROVIDERS: PCP Nurse Practitioner Family; Visit Provider Nurse Practitioner Family
DX: Z12.31 Encounter for screening mammogram for malignant neoplasm of breast (principal)
CPT/HCPCS: 77067

== ENCOUNTER → 2019-03-20 15:02 | Outpatient (CLI) | payer OTHER, SELFPAY ==
[2019-03-20 15:59] LABS: Basophils # 0.1 K/mm3 (0-0.2); Basophils % 0.4 % (0.1-2.0); Eosinophils # 0.2 K/mm3 (0.0-0.4); Eosinophils % 1.9 % (0.1-12.0); Hematocrit 43.4 % (37.0-47.0); Hemoglobin 13.6 g/dL (12.2-16.2); Lymphocytes # 2.8 K/mm3 (0.7-4.5); Lymphocytes % 23.8 % (10-50); Mean Corpuscular HGB Conc 31.4 g/dL (31.8-35.4); Mean Corpuscular Hemoglobin 29.2 pg (27.0-31.2); Mean Corpuscular Volume 92.9 fl (81-99); Mean Platelet Volume 7.9 fl (7.4-10.4); Monocytes # 0.5 K/mm3 (0.1-1.0); Monocytes % 3.8 % (1.7-9.3); Neutrophils # 8.3 K/mm3 (1.8-7.8); Neutrophils % 70.1 % (37.0-80.0); Platelet Count 358 K/mm3 (142-424); Red Blood Count 4.67 M/mm3 (4.20-5.40); Red Cell Distribution Width 13.9 % (11.5-17.5); White Blood Count 11.9 K/mm3 (4.8-10.8)
[2019-03-20 16:45] LABS: Alanine Aminotransferase 19 U/L (12-78); Albumin Level 2.9 gm/dL (3.4-5.0); Albumin/Globulin Ratio 0.8 (1.1-1.8); Alkaline Phosphatase 90 U/L (46-116); Anion Gap 14.8 mEq/L (5-15); Aspartate Amino Transferase 13 U/L (15-37); Bilirubin,Total 0.3 mg/dL (0.2-1.0); Blood Urea Nitrogen 10 mg/dL (7-18); Calcium 8.5 mg/dL (8.5-10.1); Carbon Dioxide 25 mmol/L (21.0-32.0); Chloride 103 mmol/L (98-107); Creatinine,Serum 0.79 mg/dL (0.55-1.02); Estimated Glomerular Filt Rate 78 ml/min (>60); GFR (African American) 94 ML/MIN (>60); Globulin 3.8 gm/dl (1.3-3.2); Glucose 109 mg/dL (74-106); Potassium 3.8 mmoL/L (3.5-5.1); Sodium 139 mmol/L (136-145); Thyroid Stimulating Hormone 2.98 uIU/ml (0.358-3.740); Total Protein,Serum 6.7 gm/dL (6.4-8.2)
[2019-03-23 08:14] LABS: Deamidated Gliadin Abs, IgA 8 units (0-19); Deamidated Gliadin Abs, IgG 3 units (0-19); Endomysial IgA Antibody Negative (Negative); Tissue Transglutaminase IgA Ab 2 U/mL (0-3); Tissue Transglutaminase IgG Ab 3 U/mL (0-5)
[2019-03-24 06:26] LABS: Saccharomyces cerevisiae, IgA 25.5 Units (0.0-24.9); Saccharomyces cerevisiae, IgG 26.4 Units (0.0-24.9)
[2019-03-24 19:02] LABS: Reticulin IgA Antibody Negative titer (Neg:<1:2.5)
== END ==
PROVIDERS: Visit Provider Nurse Practitioner Family
DX: R10.13 Epigastric pain (principal); R14.0 Abdominal distension (gaseous); R19.4 Change in bowel habit; R13.10 Dysphagia, unspecified; R11.0 Nausea; R19.7 Diarrhea, unspecified; K21.9 Gastro-esophageal reflux disease without esophagitis; Z79.1 Long term (current) use of non-steroidal anti-inflammatories (NSAID)
CPT/HCPCS: 36415; 80053; 83516; 84443; 85025; 86255; 86256; 86671

== ENCOUNTER → 2019-07-26 11:23 | Outpatient (CLI) | payer OTHER, SELFPAY ==
[2019-07-26 11:27] LABS: Adenovirus,PCR Not Detected (NotDetected); Bordetella Pertussis Not Detected (NotDetected); Chlamydophila Pneumoniae, PCR Not Detected (NotDetected); Coronavirus 19, PCR Not Detected (NotDetected); Coronavirus 229E Not Detected (NotDetected); Coronavirus NL63 Not Detected (NotDetected); Coronavirus OC43 Not Detected (NotDetected); Coronovirus HKU1,PCR Not Detected (NotDetected); Human Metapneumovirus Not Detected (NotDetected); Influenza A, PCR Not Detected (NotDetected); Influenza AH1, 2009 Not Detected (NotDetected); Influenza AH1, PCR Not Detected (NotDetected); Influenza AH3,PCR Not Detected (NotDetected); Influenza B, PCR Not Detected (NotDetected); Mycoplasma Pneumoniae, PCR Not Detected (NotDected); Parainfluenza 1, PCR Not Detected (NotDetected); Parainfluenza 2, PCR Not Detected (NotDetected); Parainfluenza 3, PCR Not Detected (NotDetected); Parainfluenza 4, PCR Not Detected (NotDetected); Respiratory Syncytial Virus Not Detected (NotDetected); Rhinovirus/Enterovirus Not Detected (NotDetected)
== END ==
PROVIDERS: Visit Provider Internal Medicine Gastroenterology
DX: Z01.818 Encounter for other preprocedural examination (principal)
CPT/HCPCS: 87581; 87633; 87798

== ENCOUNTER 2019-07-28 07:48 | Day surgery (SDC) | payer OTHER, SELFPAY ==
--- NOTE | 2019-07-25 09:35 | SUR.PREOP ---
07/25/2019 @ 0935--PHONE CALL MADE TO PATIENT. PATIENT UNDERSTANDS THAT LAB WORK AND COVID TESTING NEEDS TO BE COMPLETED @ 1100 ON 07/26/2019. PATIENT UNDERSTANDS IF LAB WORK AND COVID-19 TESTS ARE NOT COMPLETED BY 12PM ON THAT DATE, THE SURGERY SCHEDULED WILL BE CANCELLED AND RESCHEDULED FOR ANOTHER TIME.
[2019-07-28] VITALS (7 sets, daily range): BP systolic 96–167; BP diastolic 58–87; PULSE 59–77; RESP 18; TEMP 36.1–36.4; O2SAT 97–99; BMI 50.0
--- NOTE | 2019-07-28 08:56 | P.PCN_ITS ---
[facility] Procedure Note Procedure Note:: Upper Endoscopy Procedure Report: Esophagogastroduodenoscopy with cold biopsies Endoscopost: Boubacar Knox II, MD Referring Physician: Ye Kenny MD/Fletcher Shipman MD Date of Procedure: July 28, 2019 Equipment: Olympus GIF 180 standard upper endoscope Sedation: MAC sedation Indications: Mrs. Rankin is a 49-year-old female with chronic chronic dyspepsia. She reports midepigastric abdominal pain and discomfort with bloating, belching, early satiety and some nausea. She has had chronic GERD/esophageal reflux and this is primarily controlled with omeprazole. She reports no dysphagia but does have some globus sensation. She also has chronic diarrhea. She had been on Lotronex with me 18 years ago. 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 She has been unable to obtain Sucraid. The patient reports no melena or hematochezia. She has had no weight loss. She reports no dysphagia. Her last EGD was approximately 15 years ago. Procedure: Prior to the procedure, a history and physical exam was performed, and patient's medications and allergies were reviewed. The risks, benefits and alternatives of the sedation and procedure were discussed with the patient. All questions were answered and informed consent was obtained. The patient was brought to the procedure room. Patient identification and proposed procedure were verified by the physician and the nurse. The patient was placed in a left lateral decubitus position and the scope was passed under direct vision. Throughout the procedure, the patient's blood pressure, pulse, and oxygen saturations were monitored continuously. The upper GI endoscopy was accomplished without di fficulty. The patient tolerated the procedure well. Findings: The scope was passed directly into the upper esophagus and advanced to the third/fourth portion of the duodenum. Cold biopsies were taken from the distal duodenum. The post bulbar duodenum and duodenal bulb were normal with normal mucosa and conniventes. The scope was withdrawn through a normal duodenal bulb and pylorus into the stomach. There was bile reflux with linear reactive gastropathy of the antrum and body of the stomach. The remainder of the antrum, body and fundus of the stomach were grossly normal. Upon retroflexion there was no hiatal hernia. 2 biopsies were taken in the antrum and along the lesser curvature for histology to rule out gastritis and/or H pylori. The scope was then withdrawn into the esophagus. There was no evidence of reflux esophagitis or Shen's. There was no Schatzki's ring. There were a few tertiary contractions and mild dysmotility. The remainder of the esophageal mucosa was normal. Impression: 1. Nonerosive GERD with mild esophageal dysmotility 2. Bile reflux with linear reactive gastropathy Plan: I do feel the patient has IBS but certainly CSID is playing a role. We wi ll discuss treatment options. She may have some SIBO. I will proceed with diagnostic colonoscopy. I will follow-up the biopsies. I would consider the sucrose challenge.
--- NOTE | 2019-07-28 09:05 | HMH.ANESCL ---
[facility] Anesthesia Checklist - Patient Identification Patient Identification: Arm Band, Verbal (Name & ) - Structural Data Admitted From: Home Planned Operative Procedure/s: egd/colon Consent for Planned Operative Procedure(s) Verified: Yes - NPO Status Verified Time NPO: 00:00 - Additional verifications Patient : No Anesthesia Reactions: No Hx Blood Transfusions: No Blood Transfusion Reaction: No Cephalosporin Allergy: No Previous Colonoscopy: No - Cardiovascular Assessment Heart Sounds: S1 & S2 Pulse Strength: Baseline Pulse Rhythm: Regular Peripheral Edema: Yes - Airway Assessment C-Spine Mobility Assessed: No TMJ Mobility Assessed: No Dentition: Good Dentition - Neurological Assessment Level of Consciousness: Awake, Alert, Appropriate Hx Seizures: No Numbness or tingling in extremities: No - Anesthesia Plan Anesthesia Risk discussed: Yes Anesthesia Plan: Verified ASA Class: III Anesthesia Type: MAC [facility] History I have reviewed the patient's past medical history: Yes Medical History: Reports:: Anxiety, Arrhythmia, Depression, Gastroesophageal Reflux Disease(GERD), Hyperlipidemia, Hypertension, Migraine, Ulcer Denies:: Cancer, Diabetes Mellitus Type 1, Diabetes Mellitus Type 2, Internal Pacemaker, MRSA, Seizures *Have you ever received a pneumonia vaccine?: No *Have you received a flu vaccine this season?: Yes Other Medical History: Reports: Arthritis, Hypothyroidism, Thyroid Disease Anesthesia experience/problems:: none Laterality Cases: Bilateral: Arthroscopy Shoulder, Other Other Surgeries: Yes: Cardiac Catheterization, Cholecystectomy, Colonoscopy, , Hysterectomy-Total, Tubal Ligation. No: Pacemaker Amputation: No Fractures: No - *Social History Educational Level: Completed High School Smoking Status: Never smoker Alcohol Intake: never Alcohol Intake Frequency:: other Substance Use Type: denies use, marijuana *Occupational Status:: employed Housing: house Household Members: family *Travel in the last 8 weeks: None - Psychiatric History Pschychiatric History:: Reports:: Anxiety, Depression Family Hx:: Unable to obtain
--- NOTE | 2019-07-28 09:18 | P.PCN_ITS ---
[facility] Procedure Note Procedure Note:: Colonoscopy Procedure Report: Colonoscopy with cold biopsies Endoscopist: Boubacar Knox II, MD Referring physician: Ye Kenny MD/Fletcher Shipman M.D. Date of Procedure: July 28, 2019 Equipment: Olympus 180 variable stiffness pediatric colonoscope Sedation: MAC sedation Indication: Mrs. 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 More recently she did have a positive C 13 sucrose breath test indicative of congenital sucrase isomaltase deficiency. She has not started Sucraid. The patient does report chronic bloating and gassiness. She reports no rectal bleeding or weight loss. Her grandmother had colon cancer in her mid 50s. She reports no family history of colitis or Crohn's disease. Years ago she was on Lotronex. She does take diclofenac and ibuprofen. Procedure: Prior to the procedure, a history and physical exam was performed, and patient's medications and allergies were reviewed. The risks, benefits and alternatives of the sedation and procedure were discussed with the patient. All questions were answered and informed consent was obtained. The patient was brought to the procedure room. Patient identification and proposed procedure were verified by the physician and the nurse. The patient was placed in a left lateral decubitus position and the scope was passed under direct vision. Throughout the procedure, the patient's blood pressure, pulse, and oxygen saturations were monitored continuously. The colonoscopy was accomplished without difficulty. The patient tolerated the procedure well. Findings: On digital rectal examination there was normal rectal tone. There were no external hemorrhoids. The colonoscope was introduced through the anal canal to the rectum and advanced to the cecum. The ileocecal valve and appendiceal orifice were identified. The scope was advanced a short distance into the ileum which appeared grossly normal. The scope was then withdrawn into the colon. The cecum, ascending and transverse colon and mucosa were grossly normal. Cold biopsies were taken from the right colon to rule out microscopic colitis. There were scattered diverticuli throughout the descending and sigmoid colon (LEFT colon). The rectum itself was normal. Upon retroflexion within the rectum there were grade 1-2 internal hemorrhoids. The preparation was good throughout with Dos Rios Preparation Score of 8 out of 9. The cecal time was 13 minutes. Impression: 1. Left-sided diverticulosis 2. Grade 1-2 internal hemorrhoids Plan: I will follow-up the biopsies to rule out microscopic/lymphocytic colitis. We will discuss additional treatment options. I would consider the addition of Xifaxan with Colestid. I would continue a probiotic. I would also like for her to meet with a dietitian for sucrase isomaltase deficiency or take the sucrose challenge for further confirmation. Her insurance has not covered Sucraid.
== END 2019-07-28 10:15 | disposition home or self-care (01) ==
LOC: OUTP 07:49
PROVIDERS: PCP Emergency Medicine; Visit Provider Internal Medicine Gastroenterology
PROC: 0DJ08ZZ Inspection of Upper Intestinal Tract, Via Natural or Artificial Opening Endoscopic (ICD-10-PCS; CPT 43235; principal; 2019-07-28 09:00)
DX: K21.9 Gastro-esophageal reflux disease without esophagitis (principal); E74.31 Sucrase-isomaltase deficiency; K58.0 Irritable bowel syndrome with diarrhea; R10.13 Epigastric pain; K57.30 Diverticulosis of large intestine without perforation or abscess without bleeding; K64.1 Second degree hemorrhoids; I10 Essential (primary) hypertension; Z79.899 Other long term (current) drug therapy; E03.9 Hypothyroidism, unspecified
CPT/HCPCS: 43235; 45380; J2704

== ENCOUNTER → 2019-12-11 12:59 | Outpatient (CLI) | payer OTHER, SELFPAY ==
--- NOTE | 2019-12-11 13:04 | XR_ITS ---
PROCEDURE: XR KNEE LT 4V CLINICAL INDICATION: Left knee pain COMPARISON: CR [id number] XR knee LT 3V from 06/27/2018 FINDINGS: No fracture or dislocation. No lytic or blastic change. There is normal mineralization. Mild to moderate osteoarthritic changes are present at the medial compartment and patellofemoral joint with small suprapatellar effusion. Mild osteoarthritic changes are present at the lateral compartment. Other findings:None. IMPRESSION: Osteoarthritis of the left knee as described above. This has progressed somewhat compared to the previous exam Dictated by: Ferny Jeffries MD 12/11/2019 14:20 Ferny Jeffries MD in [facility] 12/11/2019 14:20
== END ==
PROVIDERS: PCP Emergency Medicine; Visit Provider Podiatrist
DX: M25.562 Pain in left knee (principal)
CPT/HCPCS: 73564

== ENCOUNTER 2019-12-27 15:52 | Outpatient (RCR) | payer OTHER, SELFPAY ==
--- NOTE | 2019-12-27 16:43 | HMH.PTOPEV ---
PT Outpatient Evaluation Rehab PT Outpatient Evaluation Start: 12/27/19 16:28 Freq: Status: Active Protocol: Document 12/27/19 16:29 MORGAN (Rec: 12/27/19 16:43 MORGAN [id number]) Electronically Signed By Colby Marin, PT 12/27/19 16:29 Outpatient Therapy Subjective History Subjective History Patient is a 49 year old female presenting to outpatient PT with reports of chronic L knee pain starting approximately 7 months ago. Patient reports that she was dancing and felt a pop in her knee. Most recent imaging indicates L knee OA specifically the medial compartment. Comorbidities include hx of HTN, HL, hypothyroidism, depression/ anxiety, cholecystectomy, B shoulder surgeries and elevated BMI. Chief Complaint Pain,Stiff,Clicks,Swelling, Gives out/Unstable,Weakness Symptom Type Ache,Sharp Symptoms Relieved By Rest/Positioning,Prescription Meds Symptoms Aggravated By Standing,Physical Activity, Walking Prior Functional Limitations None Current Functional Limitations Housework,Standing,Squatting, Recreation Activity,Walking, Stairs,Balance Symptom Description Constant but Variable Level of pain today (0-10) 6 Pain scale - at its best (0-10) 4 Pain scale - at its worst (0-10) 10 Hip/Knee Eval Gait Observation General Gait Pattern Observation Antalgic Gait,Decrease Weight Bear (L) Assistive Device Assistive Devices None / NA Palpation Tenderness left Knee Palpation Finding Tenderness Knee Palpation Overall Comment medial joint line 3/4; lateral joint line 2/4 MMT Hip Flexion Strength Grade 3+ Fair+ Hip Abduction Strength Grade 3+ Fair+ Hip Adduction Strength Grade 3+ Fair+ Hip Extension Strength Grade 3+ Fair+ Hip External Rotation Strength Grade 3+ Fair+ Hip Internal Rotation Strength Grade 3+ Fair+ Knee Extension Strength Grade 4 Good Knee Flexion Strength Grade 3+ Fair+ ROM Hip ROM Reason Not Measured Within Functional Limits Knee Extension Active Range of Motion ( -6 degrees) Knee Flexion Active Range of Motion ( 106 degrees) Special Test
== END 2019-12-27 15:55 | disposition home or self-care (01) ==
LOC: PT 15:52
PROVIDERS: PCP Emergency Medicine; Visit Provider Orthopaedic Surgery
DX: M25.562 Pain in left knee (principal); M76.52 Patellar tendinitis, left knee; M17.12 Unilateral primary osteoarthritis, left knee
CPT/HCPCS: 97163

== ENCOUNTER → 2020-01-18 08:41 | Outpatient (CLI) | payer OTHER, SELFPAY | PROVIDERS: PCP Emergency Medicine; Visit Provider Specialist | DX: R51.9 Headache, unspecified (principal) ==

== ENCOUNTER → 2020-01-18 09:43 | Outpatient (POV) | payer OTHER, SELFPAY ==
[2020-01-18 10:09] VITALS: BP 142/77; PULSE 74; RESP 18; O2SAT 98; BMI 52.2
--- NOTE | 2020-01-18 10:19 | HMH.PMCON ---
Assessment and Plan (1) Chronic headaches Status: Chronic Category: Medical Code(s): R51.9 - Headache, unspecified; G89.29 - Other chronic pain (2) Migraines Status: Chronic Category: Medical Code(s): G43.909 - Migraine, unspecified, not intractable, without status migrainosus - Assessment and plan all Dx Assessment and Plan for all problems:: We will schedule the patient for a lumbar puncture to see if this does relieve her chronic headaches. She has tried oral medications with no relief. She is not on any anti-inflammatories. She did see Dr. Gonzalez who did refer her to us for the lumbar puncture. We will plan to follow-up with her afterwards to reassess her symptoms. We did discuss in detail the procedure and she would like to proceed. She has been instructed to contact clinic if she has any concerns for next appointment. The patient and I specifically discussed risk factors for COVID19. These risks include, but are not limited to age greater than 60, heart or lung disease, diabetes, immunosuppression, and travel. We also discussed NSAIDs may worsen COVID19 infection or symptoms. Patient should not use NSAIDs to treat COVID19 signs or symptoms. Patient was also informed that any type of corticosteroid of any form (oral or injection) will decrease the patient's immune system response and may increase the likelihood of COVID19 infection [address] symptoms[address]. Christianson has reviewed this note and agrees with this plan of care. This note was dictated using voice recognition software and make contain errors or omissions. HPI - Data of Consult Patient: new to practice Consult date: 01/18/20 Requesting Physician: Mallory Watts APRN Primary Care Provider: Ye Kenny MD - Consult Narrative Reason for consult: Chronic headaches History of present illness: Ms. Rankin is a 49 year old female presents today for consultation for chronic headaches. She was referred to us by Dr. Gonzalez. Patient is complaining of worsening headaches despite amitriptyline with an additional 5 pound weight gain. She says the headaches have been ongoing for many years, however, worsening over the last year. Patient does have a history of sleep apnea and does use a CPAP machine at night. She reports to have headaches daily. She says that it is up to 5-6 times a week. She says it worse with sudden change in position. Patient says she is having throbbing, dizziness, tinnitus, as well as weight gain. She does also report some occasional nausea with the pain. She is scheduled to see an new accounts banking representative tomorrow. She says that she did discuss undergoing lumbar puncture to relieve the pressure which is contributing to her pain with Dr. Gonzalez. She is here today to discuss the procedure. She did expect to have the procedure done today. She was driven by her son today. She does rate her pain a 7 out of 10 today. Patient is very nervous about the procedure. She has never had any type of injective therapy. She is concerned my nerves may be damaged after the lumbar puncture . Last eye exam 2-3 years ago. She does have sensitivity to light with her headaches. CC: Mallory Watts APRN [facility] History I have reviewed the patient's past medical history: Yes Medical History: Reports:: Anxiety, Arrhythmia, Depression, Gastroesophageal Reflux Disease(GERD), Hyperlipidemia, Hypertension, Migraine, Ulcer Denies:: Cancer, Diabetes Mellitus Type 1, Diabetes Mellitus Type 2, Internal Pacemaker, MRSA, Seizures *Have you ever received a pneumonia vaccine?: Yes *Have you received a flu vaccine this season?: Yes Other Medical History: Reports: Arthritis, Hypothyroidism, Thyroid Disease. Denies: Blood Transfusion Reaction Laterality Cases: Bilateral: Arthroscopy Shoulder, Other Other Surgeries: Yes: Cardiac Catheterization, Cholecystectomy, Colonoscopy, , Hysterectomy-Total, Tubal Ligation. No: Pacemaker Amputation: No Fractures: No - *Social Histor
== END ==
PROVIDERS: PCP Emergency Medicine; Visit Provider Clinical Nurse Specialist Family Health
DX: G43.909 Migraine, unspecified, not intractable, without status migrainosus (principal)
CPT/HCPCS: 99202

== ENCOUNTER → 2020-01-31 17:23 | Outpatient (CLI) | payer OTHER, SELFPAY ==
[2020-01-31 17:44] LABS: Basophils # 0.1 K/mm3 (0-0.2); Basophils % 0.8 % (0.1-2.0); Eosinophils # 0.2 K/mm3 (0.0-0.4); Eosinophils % 1.9 % (0.1-12.0); Hematocrit 43.4 % (37.0-47.0); Hemoglobin 14.6 g/dL (12.2-16.2); Lymphocytes # 2.7 K/mm3 (0.7-4.5); Lymphocytes % 26.4 % (10-50); Mean Corpuscular HGB Conc 33.6 g/dL (31.8-35.4); Mean Corpuscular Hemoglobin 30.2 pg (27.0-31.2); Mean Corpuscular Volume 89.9 fl (81-99); Mean Platelet Volume 10.2 fl (7.4-10.4); Monocytes # 0.7 K/mm3 (0.1-1.0); Monocytes % 6.5 % (1.7-9.3); Neutrophils # 6.7 K/mm3 (1.8-7.8); Neutrophils % 64.5 % (37.0-80.0); Platelet Count 315 K/mm3 (142-424); Red Blood Count 4.83 M/mm3 (4.20-5.40); Red Cell Distribution Width 14.1 % (11.5-17.5); White Blood Count 10.4 K/mm3 (4.8-10.8)
[2020-01-31 18:45] LABS: Alanine Aminotransferase 14 U/L (12-78); Albumin Level 3.6 g/dl (3.5-5.0); Albumin/Globulin Ratio 1.1 (1.1-1.8); Alkaline Phosphatase 106 U/L (38-126); Anion Gap 15.1 mEq/L (5-15); Aspartate Amino Transferase 21 U/L (14-36); Bilirubin,Total 0.3 mg/dl (0.2-1.3); Blood Urea Nitrogen 24 mg/dl (7-17); Calcium 9.3 mg/dl (8.4-10.2); Carbon Dioxide 20 mmol/L (22.0-30.0); Chloride 107 mmol/L (98-107); Chol/HDL Ratio 3.4 (1-3.5); Cholesterol 192 mg/dl (140-200); Creatinine Clearance Estimated 64 mL/min (50-200); Estimated Glomerular Filt Rate 59 ml/min (>60); GFR (African American) 71 ML/MIN (>60); Globulin 3.2 g/dL (1.3-3.2); Glucose 93 mg/dl (74-100); HDL Cholesterol 56 mg/dl (40-60); Potassium 5.1 mmoL/L (3.5-5.1); Sodium 137 mmol/L (136-145); Total Protein,Serum 6.8 g/dl (6.3-8.2); Triglycerides 296 mg/dl (30-150); VLDL Cholesterol 59 mg/dL (0-40)
[2020-01-31 18:56] LABS: Direct LDL Cholesterol 98.74 mg/dL (100-129)
[2020-01-31 19:02] LABS: 25-OH Vitamin D, Total 36.2 ng/mL (30-100); T4 (Thyroxine) 15.3 ug/dl (5.53-11.0)
[2020-01-31 19:15] LABS: Thyroid Stimulating Hormone 3.83 uIU/mL (0.465-4.68)
== END ==
PROVIDERS: Visit Provider Nurse Practitioner Family
DX: G44.229 Chronic tension-type headache, not intractable (principal); G43.009 Migraine without aura, not intractable, without status migrainosus; I10 Essential (primary) hypertension; E78.2 Mixed hyperlipidemia
CPT/HCPCS: 80053; 80061; 82306; 84436; 84443; 85025

== ENCOUNTER 2020-02-11 09:04 | Emergency (ER) | payer OTHER, SELFPAY ==
[2020-02-11 09:18] VITALS: BP 168/94; PULSE 74; RESP 19; TEMP 36.9; O2SAT 97; BMI 37.9
--- NOTE | 2020-02-11 09:30 | HMH.EDUTC ---
[facility] [place] Clinical Impression: Exposure to COVID-19 virus Disposition: Home, Self-Care Condition on Discharge: Good Instructions: Preventing the Spread of Coronavirus Discharge Instructions Additional Instructions: Call your PCP for results in 24-48 hours. Referrals: Ye Kenny MD [Primary Care Provider] - Time of Disposition: 09:35 Medical Decision Making - Mason Inquiry Pt receiving controlled substance: No Mason was queried for this patient: No Vital Signs: 02/11/20 09:18 Temperature 98.4 F Temperature Source Oral Pulse Rate [Radial] 74 Respiratory Rate 19 Blood Pressure [Right Arm] 168/94 H Blood Pressure Mean [Right Arm] 118 Blood Pressure Source [Right Arm] Automatic Cuff Blood Pressure Position [Right Arm] Sitting 02 Sat by Pulse Oximetry 97 Oxygen Delivery Method Room Air Orders (Tests/Meds): ORDERS Category Date Time Status Covid-19 Nasal PCR Sendout [facility] 02/11/20 09:10 [place] [facility] [place] - General Stated complaint: Covid test Time Seen by Provider: 02/11/20 09:30 Mode of Arrival: Ambulatory Source of Information: Patient Limitations: No Limitations Description of Symptoms (Recalled from Triage Doc. by RN): covid test HEENT Symptoms (Recalled from RN notes): No Resp Symptoms (Recalled from RN notes): No Skin Symptoms (Recalled from RN notes): No MS Symptoms (Recalled from RN notes): No Functional Status (Recalled from RN notes): wnl - History of Present Illness Provider Complaint: Patient was exposed to COVID19 a few weeks ago at the bar. States she was around the person for around 3-4 hours. Has mild sore throat. Denies ear pain, congestion, cough, body aches, fever, chills, nausea/vomiting/diarrhea, loss of taste or smell. Onset (ago): week(s) (3) Associated symptoms: denies other symptoms Treatments prior to arrival: none - Related Data Home Medications Medication Instructions Recorded Confirmed colestipol 1 gram tablet 1 g PO .COMPLEX tab 01/09/20 02/01/20 omeprazole 20 mg capsule,delayed 20 mg PO DAILY cap 02/01/20 02/01/20 release Previous Rx's Medication Instructions Recorded diclofenac sodium 1 % topical gel 4 g TOPICAL QID PRN #30 g 02/14/19 cetirizine 10 mg tablet 10 mg PO QDAY 90 Days #90 tab 09/19/19 bupropion HCl 300 mg 24 hr tablet, 300 mg PO DAILY #30 tab 01/31/20 extended release buspirone 10 mg tablet 10 mg PO BID #180 tab 01/31/20 dicyclomine 10 mg capsule 10 mg PO QID #90 cap 01/31/20 doxazosin 4 mg tablet See Rx Instructions .ROUTE 01/31/20 .COMPLEX #90 tab ergocalciferol (vitamin D2) 1,250 50,000 unit PO WEEKLY #7 cap 01/31/20 mcg (50,000 unit) capsule estradiol 2 mg tablet See Rx Instructions .ROUTE 01/31/20 .COMPLEX #90 tab fluticasone propionate 50 1 spray INTRANASAL DAILY #9.9 ml 01/31/20 mcg/actuation nasal spray,suspension furosemide 40 mg tablet 40 mg PO BID PRN #30 tab 01/31/20 hydroxyzine pamoate 25 mg capsule 25 mg PO TID PRN #90 cap 01/31/20 levothyroxine 75 mcg tablet See Rx Instructions .ROUTE 01/31/20 .COMPLEX #90 tab lovastatin 20 mg tablet 20 mg PO DAILY #90 tab 01/31/20 metoprolol tartrate 25 mg tablet 25 mg PO BID 90 Days #180 tab 01/31/20 pramipexole 0.25 mg tablet 0.25 mg PO QHS 30 Days #30 tab 01/31/20 topiramate 25 mg tablet 75 mg PO BID #180 tab 02/01/20 diclofenac sodium 75 mg See Rx Instructions .ROUTE 02/02/20 tablet,delayed release .COMPLEX #60 tab Allergies Allergy/AdvReac Type Severity Reaction Status Date / Time Penicillins [PENICILLINS] Allergy Mild Verified 02/01/20 08:02 - Worker's Comp Is this a Worker's Comp case?: No [facility] [place] History - Hepatitis A Screen Drug use history?: No High risk sexual behaviors?: No History of sexually transmitted infection?: No Currently employed?: No Childcare worker?: No Do you have indoor plumbing?: Yes Do you have electricity?: Yes Attestation statement:: This patient has been screened for Hepatitis A risk facto
[2020-02-11 09:43] VITALS: BP 168/94; PULSE 74; RESP 19; TEMP 36.9; O2SAT 97
[2020-02-12 10:10] LABS: Covid-19 Nasal PCR Sendout UK NOT DETECTED
== END 2020-02-11 09:44 | disposition home or self-care (01) ==
PROVIDERS: Emergency Provider Physician Assistant; PCP Emergency Medicine
DX: Z20.828 Contact with and (suspected) exposure to other viral communicable diseases (principal); F41.8 Other specified anxiety disorders; K21.9 Gastro-esophageal reflux disease without esophagitis; I10 Essential (primary) hypertension; F17.210 Nicotine dependence, cigarettes, uncomplicated; Z88.0 Allergy status to penicillin; Z79.899 Other long term (current) drug therapy
CPT/HCPCS: 99201; U0003

== ENCOUNTER → 2020-02-15 13:17 | Outpatient (CLI) | payer OTHER, SELFPAY ==
--- NOTE | 2020-02-15 13:17 | CT_ITS ---
PROCEDURE: CT HEAD/BRAIN WO CON CLINICAL INDICATION: headaches, suspected pseudotumor cerebri Severe headache COMPARISON: No exams were available for comparison TECHNIQUE: Axial images obtained. All CT scans at the facility use one or more dose reduction, viz: automated exposure control, ma/kV adjustment per patient size (including targeted exams where dose is matched to indication, i.e. head), or iterative reconstruction technique. FINDINGS: No midline shift, mass effect, intracranial hemorrhage, hydrocephalus, or extra-axial fluid collection is evident. The calvarium has an unremarkable appearance. No mastoid effusion. No sinus air-fluid level. Ventricles have an unremarkable appearance. IMPRESSION: No acute intracranial finding Dictated by: Ferny Jeffries MD 02/15/2020 18:42 Ferny Jeffries MD in [facility] 02/15/2020 18:42
== END ==
PROVIDERS: PCP Emergency Medicine; Visit Provider Specialist
DX: R51.9 Headache, unspecified (principal)
CPT/HCPCS: 70450

== ENCOUNTER → 2020-02-15 13:42 | Outpatient (CLI) | payer OTHER, SELFPAY ==
[2020-02-15 16:56] LABS: Vitamin B12 452 pg/mL (239-931)
[2020-02-15 17:04] LABS: Folate 6.72 ng/mL
[2020-02-15 18:06] LABS: Ferritin 23.5 ng/ml (6.24-137)
== END ==
PROVIDERS: Visit Provider Specialist
DX: E83.10 Disorder of iron metabolism, unspecified (principal)
CPT/HCPCS: 36415; 82607; 82728; 82746

== ENCOUNTER 2020-02-23 11:35 | Day surgery (SDC) | payer OTHER, SELFPAY ==
[2020-02-23 12:44] VITALS: BP 169/77; PULSE 82; RESP 18; TEMP 36.4; O2SAT 98; BMI 52.4
[2020-02-23 13:34] VITALS: BP 132/85; PULSE 85; RESP 18; O2SAT 98
[2020-02-23 13:35] VITALS: BP 138/78; PULSE 79; RESP 18; O2SAT 98
[2020-02-23 14:03] VITALS: BP 149/77; PULSE 65; RESP 18; O2SAT 98
--- NOTE | 2020-02-23 14:14 | HMH.PMPROC ---
- Procedure Date: 02/23/20 Time: 14:14 Anesthesiologist:: Riccardo Christianson MD Complications:: None Pre-procedure Diagnosis:: Headaches Post-procedure Diagnosis:: Same Indications for Procedure:: The patient is a 49-year-old white female who is referred to us by Dr. Enrique for chronic headaches. We will do a lumbar puncture diagnostic. We will get opening and closing pressures. She is also ordered labs for the CSF. Procedure Details:: Lumbar puncture diagnostic Informed consent was obtained and the risk and benefits of the procedure was explained to the patient. The patient was taken to the procedure room. The patient was placed in a left lateral decubitus position. The skin and subcutaneous tissues were anesthetized using lidocaine. A 20-gauge long spinal needle was inserted and advanced into the L4-5 interspace. After up CSF was obtained opening pressures were taken and found to be 20 cm of water. We withdrew approximately 3 to 4 mL of clear CSF placed into each of 4 tubes. We obtain approximately a total of 15 to 16 mL of clear CSF. Closing pressures were found to be 10 cm of water. The needle was removed Band-Aid was placed. Patient tolerated the procedure well with no complications. Patient was taken recovery in stable condition. Plan and Disposition:: Patient was discharged home neurologically intact. Patient was counseled on the signs and symptoms and conservative treatments for post dural puncture headache. If the patient does develop a spinal headache she is to call us back in the pain clinic.
[2020-02-23 15:11] LABS: Glucose,CSF 76 mg/dl (40-70)
[2020-02-23 17:01] LABS: Appearance,CSF Clear (Clear); Red Blood Cell,CSF 46 cells/uL (0); Volume,CSF 12 mL; White Blood Cell,CSF 8 cells/uL (0-5)
[2020-02-23 18:05] LABS: Mononuclear WBCs,CSF 49 %; Polynuclear WBCs,CSF 1 %
[2020-02-23 18:06] LABS: Appearance,CSF Clear (Clear); Red Blood Cell,CSF 4 cells/uL (0); Volume,CSF 12 mL; White Blood Cell,CSF 3 cells/uL (0-5)
[2020-02-23 18:11] LABS: Mononuclear WBCs,CSF 47 %; Polynuclear WBCs,CSF 3 %
== END 2020-02-23 14:05 | disposition home or self-care (01) ==
LOC: SC.PAINP 11:37
PROVIDERS: PCP Emergency Medicine; Visit Provider Anesthesiology
DX: R50.9 Fever, unspecified (principal); I10 Essential (primary) hypertension; E78.5 Hyperlipidemia, unspecified; E03.9 Hypothyroidism, unspecified; Z88.0 Allergy status to penicillin; Z72.0 Tobacco use; F41.9 Anxiety disorder, unspecified; F32.9 Major depressive disorder, single episode, unspecified; K58.9 Irritable bowel syndrome, unspecified
CPT/HCPCS: 62272; 82945; 84155; 87102; 87205; 87206; 89051

== ENCOUNTER 2020-02-24 11:31 | Emergency (ER) | payer OTHER, SELFPAY ==
[2020-02-24 11:41] VITALS: BP 147/80; PULSE 77; RESP 16; TEMP 36.8; O2SAT 100; BMI 51.6
[2020-02-24 11:58] VITALS: BP 143/80; PULSE 72; O2SAT 99
--- NOTE | 2020-02-24 12:25 | HMH.EDHA ---
ED Disposition Clinical Impression: Post lumbar puncture headache Disposition: Home, Self-Care Condition on Discharge: Good Additional Instructions: New or worsening symptoms. Take Tylenol, Toradol, caffeine pills, and drink plenty of fluids. Follow-up with your primary care physician. Prescriptions: Ketorolac Tromethamine [Toradol 10mg tablet] 10 mg PO Q6H 5 Days #20 tab Transmission Status: Pending to [facility] #[id number] Referrals: Ye Kenny MD [Primary Care Provider] - - Critical Care Critical Care Time: No Attestation: On 02/24/20, the high probability of a clinically significant, sudden or life threatening deterioration of the following system(s) required my full and direct attention, intervention and personal management. The time I documented below is in addition to time spent performing reported procedures but includes the following listed in this critical care notation. Medical Decision Making - Medical Records Medical records reviewed: Yes: I reviewed the patient's medical records. - Mason Inquiry Pt receiving controlled substance: No Vital Signs: 02/24/20 11:41 02/24/20 11:58 Temperature 98.2 F Temperature Source Oral Pulse Rate [Right Radial] 77 72 Respiratory Rate 16 Blood Pressure [Right Arm] 147/80 H 143/80 H Blood Pressure Mean [Right Arm] 102 101 Blood Pressure Source [Right Arm] Automatic Cuff Automatic Cuff Blood Pressure Position [Right Arm] Sitting Sitting 02 Sat by Pulse Oximetry 100 99 Oxygen Delivery Method Room Air Room Air Orders (Tests/Meds): ED MEDICATIONS Generic Name Dose Route Start Last Admin Trade Name Freq PRN Reason Stop Dose Admin Lactated Ringer's 1,000 mls @ 999 mls/hr 02/24/20 12:15 02/24/20 12:25 Lactated Ringer's 1000 Ml Bag IV 02/24/20 13:15 999 mls/hr .Q1H1M NASIR Administration Discontinued Medications Generic Name Dose Route Start Last Admin Trade Name Freq PRN Reason Stop Dose Admin Acetaminophen 500 mg 02/24/20 12:09 02/24/20 12:26 Acetaminophen 500mg Tab PO 02/24/20 12:10 500 mg ONCE ONE Administration Acetaminophen 500 mg 02/24/20 12:27 02/24/20 12:28 Acetaminophen 500mg Tab PO 02/24/20 12:28 500 mg ONCE ONE Administration Ketorolac Tromethamine 30 mg 02/24/20 12:08 02/24/20 12:26 Ketorolac 30mg/Ml Vial IV 02/24/20 12:09 30 mg ONCE ONE Administration Medical Decision Narrative: Patient is a 49-year-old female who presents to the emergency department today with a headache after a lumbar puncture yesterday. Most likely post LP headache. No IV caffeine on formulary. Given Toradol, Tylenol, and IV fluids. No red flags for headache. Given symptomatic improvement after treatment. Ducted patient to purchase caffeine pills, take Tylenol, Toradol, and plenty of fluids. If pain does not get worse return here for possible blood patch. Headache HPI - General Chief Complaint: Headache Stated Complaint: headache after lumbar puncture Time Seen by Provider: 02/24/20 12:00 Mode of Arrival: Ambulatory Limitations: No Limitations Description of Symptoms (Recalled from ER Triage Doc. by RN): pt reports headache in melissa temporal areas since yesterday afternoon. Pt reports she had a lumbar puncture yesterday per Dr. Christianson. Pt reports pain worse upon standing, n/v, light sensitivity. - History of Present Illness HPI Narrative: Patient is a 49-year-old female 1 day status post lumbar puncture with opening pressures who presents the emergency department today with a headache. She states it is better with lying flat, however she cannot breathe when she lies flat so she has to sit up a little bit. When she is lying still her headache is okay. She tried drinking some Pepsi to make her head feel better, however does not work. She is also had some Tylenol. She believes this is related to her lumbar puncture yesterday., Chills, focal weakness, numbness. - Related Data Home Medic
[2020-02-24 13:30] VITALS: BP 172/90; PULSE 77; RESP 18; TEMP 36.8; O2SAT 99
== END 2020-02-24 13:31 | disposition home or self-care (01) ==
PROVIDERS: Emergency Provider Emergency Medicine; PCP Emergency Medicine
DX: G97.1 Other reaction to spinal and lumbar puncture (principal); R51.9 Headache, unspecified; F41.8 Other specified anxiety disorders; K21.9 Gastro-esophageal reflux disease without esophagitis; E78.5 Hyperlipidemia, unspecified; G43.709 Chronic migraine without aura, not intractable, without status migrainosus; E03.9 Hypothyroidism, unspecified; I10 Essential (primary) hypertension; F17.210 Nicotine dependence, cigarettes, uncomplicated; Z88.0 Allergy status to penicillin
CPT/HCPCS: 96365; 96375; 99282

== ENCOUNTER 2020-02-28 09:58 | Day surgery (SDC) | payer OTHER, SELFPAY ==
[2020-02-28 10:39] VITALS: BP 199/101; PULSE 85; RESP 20; TEMP 36.7; O2SAT 96; BMI 51.6
[2020-02-28 10:49] VITALS: BP 148/88; PULSE 74; RESP 18
[2020-02-28 10:50] VITALS: BP 150/78; PULSE 88; RESP 18; O2SAT 98
--- NOTE | 2020-02-28 10:51 | PC.NURSE ---
1040 ZOFRAN 4MG GIVEN IV PER MD ORDERS. PT STATES HER HEADACHE IS BETTER, SHE JUST FEELS NAUSEATED. PT ALSO WAS GIVEN SPRITE AND SALTINE CRACKERS PER HER REQUEST.
--- NOTE | 2020-02-28 11:14 | PC.NURSE ---
Late entry: 1000 #20g IV initiated in right AC by this RN
[2020-02-28 11:15] VITALS: BP 144/77; PULSE 85; RESP 18; TEMP 36.8; O2SAT 99
--- NOTE | 2020-02-28 11:35 | HMH.OPNOTE ---
Date of procedure: 02/28/20 Pre-op Diagnosis:: Post dural puncture headache Post-op Diagnosis:: Same Procedure performed:: Lumbar epidural blood patch Surgeon:: Riccardo Christianson MD SALES MERCHANDISING SPECIALIST:: Adi Flores Anesthesia: MAC Estimated blood loss (mL): 5 Clinical Note:: This patient is a pleasant 49-year-old white female who we did a lumbar puncture for diagnostic purposes on 02/23/2020. Subsequent to this lumbar puncture she developed a post dural puncture headache. Worse with sitting or standing relieved by lying flat. She is failed all conservative treatment measures including fluids, Excedrin Migraine, rest. She presents for lumbar epidural blood patch today.
--- NOTE | 2020-02-28 11:38 | HMH.PMPROC ---
- Procedure Date: 02/28/20 Time: 11:38 Anesthesiologist:: Riccardo Christianson MD Complications:: None Pre-procedure Diagnosis:: Post dural puncture headache Post-procedure Diagnosis:: Same Indications for Procedure:: This patient is a pleasant 49-year-old white female who we did a lumbar puncture for diagnostic purposes on 02/23/2020. Subsequent to this lumbar puncture she developed a post dural puncture headache. Worse with sitting or standing relieved by lying flat. She is failed all conservative treatment measures including fluids, Excedrin Migraine, rest. She presents for lumbar epidural blood patch today. Procedure Details:: Lumbar epidural blood patch informed consent was obtained and the risk and benefits of the procedure was explained to the patient. The patient was taken to the procedure room. The patient was placed prone on the procedure table. The patient was prepped and draped in sterile fashion. C-arm fluoroscopy was used to view the lumbar spine. Skin and subcutaneous tissues were anesthetized using lidocaine. I placed an 18-gauge epidural needle and advanced into the L4-L5 interspace using fluoroscopic guidance and [id number] to air. After confirmation of needle placement in the epidural space with dye I injected 20 mils of venous blood drawn under sterile conditions from the left hand. Ptient tolerated the procedure well with no complications. Plan and Disposition:: We have encouraged rest and fluids for this patient. I have also encouraged Excedrin Migraine. We will follow-up with her as needed. If her headache returns she is to call us back in the pain clinic.
== END 2020-02-28 11:00 | disposition home or self-care (01) ==
LOC: SC.PAINP 09:59
PROVIDERS: PCP Emergency Medicine; Visit Provider Anesthesiology
DX: G97.1 Other reaction to spinal and lumbar puncture (principal); Y84.4 Aspiration of fluid as the cause of abnormal reaction of the patient, or of later complication, without mention of misadventure at the time of the procedure; Y92.238 Other place in hospital as the place of occurrence of the external cause; E66.9 Obesity, unspecified; I10 Essential (primary) hypertension; G43.909 Migraine, unspecified, not intractable, without status migrainosus; K21.9 Gastro-esophageal reflux disease without esophagitis; E03.9 Hypothyroidism, unspecified; Z68.43 Body mass index [BMI] 50.0-59.9, adult
CPT/HCPCS: 62273; 77003; J2405

== ENCOUNTER 2020-03-02 22:37 | Emergency (ER) | payer OTHER, SELFPAY ==
[2020-03-02 22:39] VITALS: BP 191/97; PULSE 89; RESP 16; O2SAT 97; BMI 53.1
[2020-03-02 22:57] VITALS: BMI 53.1
--- NOTE | 2020-03-02 22:58 | CT_ITS ---
PROCEDURE: CT HEAD/BRAIN WO CON CLINICAL INDICATION: confusion Altered mental status, altered level of consciousness, confusion, disorientation COMPARISON: CT CT HEAD/BRAIN WO CON from 02/15/2020 TECHNIQUE: Axial images obtained. All CT scans at the facility use one or more dose reduction, viz: automated exposure control, ma/kV adjustment per patient size (including targeted exams where dose is matched to indication, i.e. head), or iterative reconstruction technique. FINDINGS: No midline shift, mass effect, intracranial hemorrhage, hydrocephalus, or extra-axial fluid collection is evident. The calvarium has an unremarkable appearance. No mastoid effusion. No sinus air-fluid level. IMPRESSION: No acute intracranial finding Dictated by: Ferny Jeffries MD 03/03/2020 09:45 Ferny Jeffries MD in [facility] 03/03/2020 09:45
[2020-03-02 23:08] VITALS: BP 176/89; PULSE 86; RESP 16; O2SAT 97
--- NOTE | 2020-03-02 23:13 | PC.NURSE ---
pt back from RAD
--- NOTE | 2020-03-02 23:14 | PC.NURSE ---
pt ambulated independently from the bathroom to pt room without assistance. tolerated well.
--- NOTE | 2020-03-02 23:23 | HMH.EDAMS ---
ED Disposition Clinical Impression: Altered mental status Qualifiers: Altered mental status type: transient alteration of awareness Qualified Code(s): R40.4 - Transient alteration of awareness Disposition: Home, Self-Care Condition on Discharge: Good Instructions: DI for Altered Mental Status Additional Instructions: call pcp wednesday for follow up Referrals: Ye Kenny MD [Primary Care Provider] - - Critical Care Critical Care Time: No Attestation: On 03/02/20, the high probability of a clinically significant, sudden or life threatening deterioration of the following system(s) required my full and direct attention, intervention and personal management. The time I documented below is in addition to time spent performing reported procedures but includes the following listed in this critical care notation. Medical Decision Making - Medical Records Medical records reviewed: Yes: I reviewed the patient's medical records. - Mason Inquiry Pt receiving controlled substance: No Vital Signs: 03/02/20 22:39 03/02/20 23:39 03/03/20 00:06 Pulse Rate [Left Radial] 89 68 67 Respiratory Rate 16 16 16 Blood Pressure [Right Arm] 191/97 H 159/79 H 168/95 H Blood Pressure Mean [Right Arm] 128 105 119 Blood Pressure Source [Right Arm] Automatic Cuff Automatic Cuff Automatic Cuff Blood Pressure Position [Right Arm] Sitting Sitting Sitting 02 Sat by Pulse Oximetry 97 98 97 Oxygen Delivery Method Room Air Room Air Room Air - Lab Data Lab results reviewed: Yes: I reviewed the patient's lab results. Lab Results 03/02/20 23:24: WBC 12.6 H, RBC 4.83, Hgb 14.0, Hct 43.3, MCV 89.6, MCH 29.0, MCHC 32.4, RDW 14.6, Plt Count 323, MPV 8.0, Neut % (Auto) 61.5, Lymph % (Auto) 30.7, K[place]y % (Auto) 5.8, Eos % (Auto) 1.6, Baso % (Auto) 0.5, Neut # (Auto) 7.8, Lymph # (Auto) 3.9, [place]y # (Auto) 0.7, Eos # (Auto) 0.2, Baso # (Auto) 0.1 03/02/20 23:24: Sodium 140, Potassium 3.8, Chloride 109 H, Carbon Dioxide 22, Anion Gap 12.8, BUN 16, Creatinine 1.00, Estimated Creat Clear 69, Estimated GFR 59, Est GFR ( Amer) 71, Glucose 102 H, Calcium 9.1, Total Bilirubin 0.4, AST 27, ALT 24, Alkaline Phosphatase 99, C-Reactive Protein 3.5, Total Protein 7.3, Albumin 4.0, Globulin 3.3 H, Albumin/Globulin Ratio 1.2 03/02/20 23:24: Urine Color Yellow, Urine Appearance Sl cloudy, Urine pH 6.0, Ur Specific Dieterich >= 1.030, Urine Protein Negative, Urine Glucose (UA) Negative, Urine Ketones Negative, Urine Blood Negative, Urine Nitrate Negative, Urine Bilirubin Negative, Urine Urobilinogen 0.2, Ur Leukocyte Esterase Negative, Ur Squamous Epith Cells 20-50, Urine Bacteria 1+ 03/02/20 23:24: Urine HCG, Qual Negative 03/02/20 23:24: Urine Opiates Screen Negative, Urine Methadone Screen Negative, Ur Barbituates Screen Negative, Ur Phencyclidine Scrn Negative, Ur Amphetamines Screen Negative, U Benzodiazepines Scrn Negative, Urine Cocaine Screen Negative, U Marijuana (THC) Screen Negative Result diagrams: 03/02/20 23:24 03/02/20 23:24 Orders (Tests/Meds): ORDERS Category Date Time Status CT head/brain wo con Stat Cat Scan 03/02/20 22:58 Taken Erythrocyte Sedimentation Rate Stat Lab 03/02/20 23:24 Received - CT Data CT Scan: Head Time Received: 00:[address] Reviewed: Yes: I have viewed the radiologist's interpretation Preliminary Findings: Normal/NAD - Reevaluation(s) Time: 00:32 Reevaluation #1: doing better Medical Decision Narrative: will f/u with mri and neuro eval Altered Mental Status HPI - General Chief Complaint: Altered Mental Status Stated Complaint: confussed\ Time Seen by Provider: 03/02/20 23:23 Mode of Arrival: Wheelchair Source of Information: Patient, Relative, Medical Record Limitations: No Limitations Description of Symptoms (Recalled from ER Triage Doc. by RN): pt brought in by friend who stated the pt has been confused for the last 2 hours. on assessment pt is tearful and stated she feels confused. pt is ab
[2020-03-02 23:39] VITALS: BP 159/79; PULSE 68; RESP 16; O2SAT 98
[2020-03-02 23:54] LABS: Basophils # 0.1 K/mm3 (0-0.2); Basophils % 0.5 % (0.1-2.0); Eosinophils # 0.2 K/mm3 (0.0-0.4); Eosinophils % 1.6 % (0.1-12.0); Hematocrit 43.3 % (37.0-47.0); Lymphocytes # 3.9 K/mm3 (0.7-4.5); Lymphocytes % 30.7 % (10-50); Mean Corpuscular HGB Conc 32.4 g/dL (31.8-35.4); Mean Corpuscular Volume 89.6 fl (81-99); Monocytes # 0.7 K/mm3 (0.1-1.0); Monocytes % 5.8 % (1.7-9.3); Neutrophils # 7.8 K/mm3 (1.8-7.8); Neutrophils % 61.5 % (37.0-80.0); Platelet Count 323 K/mm3 (142-424); Red Blood Count 4.83 M/mm3 (4.20-5.40); Red Cell Distribution Width 14.6 % (11.5-17.5); White Blood Count 12.6 K/mm3 (4.8-10.8)
[2020-03-02 23:55] LABS: Microscopic, Urine URINE MICROSCOPIC (MICROSCOPIC)
--- NOTE | 2020-03-02 23:58 | PC.NURSE ---
pt talking with family on the phone at this time. pt able to carry on coherent sentences on observation
[2020-03-03 00:01] LABS: Chloride 109 mmol/L (98-107); Potassium 3.8 mmoL/L (3.5-5.1); Sodium 140 mmol/L (136-145)
[2020-03-03 00:02] LABS: Appearance,Urine SL CLOUDY (Clear); Bilirubin,Urine Negative (Negative); Blood, Urine Negative (Negative); Color,Urine YELLOW (Yellow); Glucose,Urine (UA) Negative (Negative); Ketones,Urine Negative (Negative); Leukocyte Esterase,Urine Negative (Negative); Nitrate,Urine Negative (Negative); Protein,Urine Negative (Negative); Specific Gravity, Urine >= 1.030 (1.005-1.030); Urobilinogen,Urine 0.2 EU/dl (0.2)
[2020-03-03 00:04] LABS: Alanine Aminotransferase 24 U/L (12-78); Albumin/Globulin Ratio 1.2 (1.1-1.8); Alkaline Phosphatase 99 U/L (38-126); Anion Gap 12.8 mEq/L (5-15); Aspartate Amino Transferase 27 U/L (14-36); Bilirubin,Total 0.4 mg/dl (0.2-1.3); Blood Urea Nitrogen 16 mg/dl (7-17); Calcium 9.1 mg/dl (8.4-10.2); Carbon Dioxide 22 mmol/L (22.0-30.0); Creatinine Clearance Estimated 69 mL/min (50-200); Estimated Glomerular Filt Rate 59 ml/min (>60); GFR (African American) 71 ML/MIN (>60); Globulin 3.3 g/dL (1.3-3.2); Glucose 102 mg/dl (74-100); Total Protein,Serum 7.3 g/dl (6.3-8.2)
[2020-03-03 00:06] VITALS: BP 168/95; PULSE 67; RESP 16; O2SAT 97
[2020-03-03 00:10] LABS: Barbiturates Screen,Urine Negative ng/ml (<200)
[2020-03-03 00:11] LABS: Bacteria,Urine 1+ /lpf; Benzodiazepines Screen,Urine Negative ng/ml (<200); Squamous Epithelial Cell,Urine 20-50 #/hpf (0-5); Urine Pregnancy, HCG Qual. Negative (Negative)
[2020-03-03 00:12] LABS: Cannabinoid Screen,Urine Negative ng/ml (<50)
[2020-03-03 00:13] LABS: Cocaine Screen,Urine Negative ng/ml (<300)
[2020-03-03 00:14] LABS: Methadone Screen,Urine Negative ng/ml (<300); Opiate Screen,Urine Negative ng/ml (<300)
[2020-03-03 00:15] LABS: Phencyclidine Screen,Urine Negative ng/ml (<25)
[2020-03-03 00:17] LABS: C-Reactive Protein 3.5 mg/L (0-4)
[2020-03-03 00:18] LABS: Amphetamine/Metha Screen,Urine Negative ng/ml (<1000)
--- NOTE | 2020-03-03 00:23 | PC.NURSE ---
pt stated she is feeling better at this time and is AxOx 3
[2020-03-03 00:27] LABS: Erythrocyte Sedimentation Rate 20 mm/hr (0-20)
[2020-03-03 00:45] VITALS: BP 150/82; PULSE 73; RESP 16; TEMP 36.8; O2SAT 98
== END 2020-03-03 00:52 | disposition home or self-care (01) ==
PROVIDERS: Emergency Provider Emergency Medicine; PCP Emergency Medicine
DX: R40.4 Transient alteration of awareness (principal); F41.8 Other specified anxiety disorders; K21.9 Gastro-esophageal reflux disease without esophagitis; E78.5 Hyperlipidemia, unspecified; I10 Essential (primary) hypertension; Z88.0 Allergy status to penicillin; Z79.899 Other long term (current) drug therapy
CPT/HCPCS: 70450; 80053; 80305; 81001; 81025; 85025; 85651; 86140; 96365; 99283

== ENCOUNTER 2020-04-16 08:00 | Outpatient (RCR) | payer OTHER, SELFPAY ==
--- NOTE | 2020-03-20 08:32 | HMH.PTOPEV ---
PT Outpatient Evaluation Rehab PT Outpatient Evaluation Start: 03/20/20 07:55 Freq: Status: Active Protocol: Document 03/20/20 07:56 MANJUKUMAR (Rec: 03/20/20 08:32 TAMARASLY [id number]) Electronically Signed By Alfredo Roe PT 03/20/20 07:56 Outpatient Therapy Subjective History Subjective History This is the initial Physical Therapy evaluation for Ciera Rankin. Pt is a 45 y/o female referred to PT for c/o L knee pain. Pt reports pain began ~ 1 year ago. Pt reprots she was out dancing and her knee buckled, causing her to almost fall to the ground. Pt reports she has had pain and buckling in knee on and off since then. Pt reports over the last few months her knee pain has begun to get progressively worse. Pt reports c/o swelling, giving out, and feeling hot Chief Complaint Pain,Gives out/Unstable Symptom Type Ache,Throb,Sharp Symptoms Relieved By Rest/Positioning,Ice Symptoms Aggravated By Standing,Bending/Stooping, Physical Activity,Walking Prior Functional Limitations None Current Functional Limitations Housework,Sleeping,Standing, Squatting,Recreation Activity, Walking,Stairs Symptom Description Intermittent Level of pain today (0-10) 6 Pain scale - at its best (0-10) 0 Pain scale - at its worst (0-10) 8 Hip/Knee Eval Gait Observation General Gait Pattern Observation Antalgic Gait,Decrease Weight Bear (L) Palpation Tenderness left Knee Palpation Finding Tenderness Knee Palpation Overall Comment TTP along pes anserine tendons , and medial Jt line MMT Knee Extension Strength Grade 4- Good- Knee Flexion Strength Grade 4- Good- ROM Knee Extension Active Range of Motion ( 0 degrees) Knee Flexion Active Range of Motion ( 95 degrees) Knee ROM Limitations Pain Special Tests Knee Apprehension Test Negative Left Knee Apley Compression Test Negative Left Knee Medial-Lateral Grind Test Positive Left Knee Valgus Stress Test Negative Left,Positive Left Knee Varus Stress Test Negative Left Patellar Grind Test Positive Left Outpatient Therapy Assessment Impairments Problem
== END 2020-04-16 08:05 | disposition home or self-care (01) ==
LOC: PT 08:00
PROVIDERS: PCP Emergency Medicine; Visit Provider Orthopaedic Surgery
DX: M17.12 Unilateral primary osteoarthritis, left knee; M76.52 Patellar tendinitis, left knee
CPT/HCPCS: 97110; 97163

== ENCOUNTER 2020-04-25 14:47 | Emergency (ER) | payer OTHER, SELFPAY ==
--- NOTE | 2020-04-25 14:42 | ECG_ITS ---
APPROVED REPORT Exam: Resting ECG HR:67 bpm ECG Measurements Heart Rate 67 AXES MN 186 P 74 QRSd 94 QRS -33 QT 406 T 71 QTc 429 Conclusion Normal sinus rhythm Left axis deviation Nonspecific ST abnormality Abnormal ECG Electronically signed by : Doroteo Madrigal, 04/26/2020 06:39:05
[2020-04-25 14:47] VITALS: BP 144/77; PULSE 115; PULSE 60; RESP 18; TEMP 36.8; O2SAT 97; BMI 19.8
--- NOTE | 2020-04-25 14:51 | HMH.EDCP ---
ED Disposition Clinical Impression: Anxiety Chest pain Qualifiers: Chest pain type: other chest pain Qualified Code(s): R07.89 - Other chest pain Disposition: Home, Self-Care Condition on Discharge: Good Instructions: DI for Atypical Chest Pain, DI for Anxiety -- Adult Referrals: Ye Kenny MD [Primary Care Provider] - 3 days - Critical Care Critical Care Time: No Attestation: On , the high probability of a clinically significant, sudden or life threatening deterioration of the following system(s) required my full and direct attention, intervention and personal management. The time I documented below is in addition to time spent performing reported procedures but includes the following listed in this critical care notation. Medical Decision Making - Medical Records Medical records reviewed: Yes: I reviewed the patient's medical records. - Mason Inquiry Pt receiving controlled substance: No Vital Signs: 04/25/20 14:47 Temperature 98.2 F Temperature Source Oral Pulse Rate [Right Brachial] 115 H Respiratory Rate 18 Blood Pressure [Right Arm] 144/77 H Blood Pressure Mean [Right Arm] 99 Blood Pressure Source [Right Arm] Automatic Cuff Blood Pressure Position [Right Arm] Sitting 02 Sat by Pulse Oximetry 97 Oxygen Delivery Method Room Air - Lab Data Lab results reviewed: Yes: I reviewed the patient's lab results. Lab Results 04/25/20 14:53: WBC 11.0 H, RBC 4.73, Hgb 14.0, Hct 43.7, MCV 92.3, MCH 29.5, MCHC 32.0, RDW 14.5, Plt Count 336, MPV 7.8, Neut % (Auto) 60.9, Lymph % (Auto) 29.5, Wise % (Auto) 7.5, Eos % (Auto) 1.6, Baso % (Auto) 0.5, Neut # (Auto) 6.7, Lymph # (Auto) 3.3, Wise # (Auto) 0.8, Eos # (Auto) 0.2, Baso # (Auto) 0.1 04/25/20 14:53: Sodium 141, Potassium 3.8, Chloride 112 H, Carbon Dioxide 23, Anion Gap 9.8, BUN 20 H, Creatinine 0.90, Estimated Creat Clear 61, Estimated GFR 67, Est GFR ( Amer) 81, Glucose 89, Calcium 9.0, Total Bilirubin 0.4, AST 31, ALT 35, Alkaline Phosphatase 90, Troponin I < 0.01, Total Protein 7.4, Albumin 3.9, Globulin 3.5 H, Albumin/Globulin Ratio 1.1, Lipase 95 Result diagrams: 04/25/20 14:53 04/25/20 14:53 Orders (Tests/Meds): ORDERS Category Date Time Status Chest XR -- portable [XR chest portable] Stat Exams 04/25/20 15:24 Ordered Troponin I Q3H Lab 04/25/20 18:30 Ordered Troponin I Q3H Lab 04/25/20 21:30 Ordered - Radiology Data #1 Image(s): Chest Image Reviewed: Yes I reviewed the patient's radiology image Preliminary Findings: Normal/NAD - ECG Data Tracing #1 EKG at 1442 shows normal sinus rhythm with a rate of 67. No acute ST segment elevation or depression. No hyperacute T waves. Normal intervals. EKG interpreted by me. Medical Decision Narrative: Patient with low risk steph score, heart score less than 3. Chest x-ray shows no signs of pneumonia, pneumothorax, florid pulmonary edema or widened mediastinum that would suggest dissection. Troponin negative and EKG with no signs of acute ischemia. Symptoms have been ongoing since yesterday, no need for repeat troponin at this point. Very low suspicion for ACS. No shortness of breath, unlikely acute pulmonary pathology such as PE. Suspect anxiety/GI symptomology. Advised to follow-up with primary care within 2 to 3 days for reevaluation. Chest Pain HPI - General Stated Complaint: chest pain Time Seen by Provider: 04/25/20 14:51 Mode of Arrival: Ambulatory Source of Information: Patient Limitations: No Limitations - History of Present Illness HPI narrative: This is a 49-year-old female with a past medical history significant for hypertension, hyperlipidemia, GERD, anxiety who presents to the emergency department for substernal nonradiating intermittent chest pain since yesterday. She states that she has had pain like this before with heartburn, has also had pain like this related to her anxiety. She has been more anxious lately because of the ice st
[2020-04-25 15:02] VITALS: BP 159/98; PULSE 50; O2SAT 97
--- NOTE | 2020-04-25 15:24 | XR_ITS ---
PROCEDURE: XR CHEST PORTABLE CLINICAL HISTORY: chest pain COMPARISON: CR CXR CHEST(2 VIEWS-NOT PORTABLE) from 08/27/2016 DX CXR2V XR chest 2V from 06/24/2018 FINDINGS: Normal heart size. There is prominence of the right hilum suggesting prominence/tortuosity of the ascending aorta. The lungs are clear without infiltrates, suspicious nodules, or pleural effusions. No acute bony abnormalities. IMPRESSION: Prominent right hilum which may be due to prominence of the ascending aorta. This may be better evaluated with chest CT with contrast Dictated by: Ferny Jeffries MD 04/25/2020 16:09 Ferny Jeffries MD in [facility] 04/25/2020 16:09
[2020-04-25 15:33] VITALS: BP 134/76; PULSE 59; O2SAT 98
[2020-04-25 15:33] LABS: Basophils # 0.1 K/mm3 (0-0.2); Basophils % 0.5 % (0.1-2.0); Eosinophils # 0.2 K/mm3 (0.0-0.4); Eosinophils % 1.6 % (0.1-12.0); Hematocrit 43.7 % (37.0-47.0); Lymphocytes # 3.3 K/mm3 (0.7-4.5); Lymphocytes % 29.5 % (10-50); Mean Corpuscular Hemoglobin 29.5 pg (27.0-31.2); Mean Corpuscular Volume 92.3 fl (81-99); Mean Platelet Volume 7.8 fl (7.4-10.4); Monocytes # 0.8 K/mm3 (0.1-1.0); Monocytes % 7.5 % (1.7-9.3); Neutrophils # 6.7 K/mm3 (1.8-7.8); Neutrophils % 60.9 % (37.0-80.0); Platelet Count 336 K/mm3 (142-424); Red Blood Count 4.73 M/mm3 (4.20-5.40); Red Cell Distribution Width 14.5 % (11.5-17.5)
[2020-04-25 15:34] LABS: Chloride 112 mmol/L (98-107); Potassium 3.8 mmoL/L (3.5-5.1); Sodium 141 mmol/L (136-145)
[2020-04-25 15:37] LABS: Alanine Aminotransferase 35 U/L (12-78); Albumin Level 3.9 g/dl (3.5-5.0); Albumin/Globulin Ratio 1.1 (1.1-1.8); Alkaline Phosphatase 90 U/L (38-126); Anion Gap 9.8 mEq/L (5-15); Aspartate Amino Transferase 31 U/L (14-36); Bilirubin,Total 0.4 mg/dl (0.2-1.3); Blood Urea Nitrogen 20 mg/dl (7-17); Carbon Dioxide 23 mmol/L (22.0-30.0); Creatinine Clearance Estimated 61 mL/min (50-200); Estimated Glomerular Filt Rate 67 ml/min (>60); GFR (African American) 81 ML/MIN (>60); Globulin 3.5 g/dL (1.3-3.2); Glucose 89 mg/dl (74-100); Lipase 95 U/L (23-300); Total Protein,Serum 7.4 g/dl (6.3-8.2)
[2020-04-25 15:50] LABS: Troponin I < 0.01 ng/ml (0.00-0.034)
[2020-04-25 16:01] VITALS: BP 131/74; PULSE 58; O2SAT 98
[2020-04-25 16:10] VITALS: BP 131/74; PULSE 60; RESP 20; TEMP 36.8; O2SAT 98
== END 2020-04-25 16:14 | disposition home or self-care (01) ==
PROVIDERS: Emergency Provider Emergency Medicine; PCP Emergency Medicine
DX: R07.89 Other chest pain (principal); F41.8 Other specified anxiety disorders; I10 Essential (primary) hypertension; K21.9 Gastro-esophageal reflux disease without esophagitis; E78.5 Hyperlipidemia, unspecified; E03.9 Hypothyroidism, unspecified; Z79.899 Other long term (current) drug therapy; Z88.0 Allergy status to penicillin
CPT/HCPCS: 71045; 80053; 83690; 84484; 85025; 93005; 99283

== ENCOUNTER 2020-05-16 20:01 | Emergency (ER) | payer OTHER, SELFPAY ==
[2020-05-16 20:33] VITALS: BP 198/97; PULSE 88; RESP 14; TEMP 36.6; O2SAT 97; BMI 50.0
[2020-05-16 20:35] LABS: Apearance,Urine Clear (Clear); Color,Urine Yellow (Yellow); Protein,Urine Negative (Negative); Specific Gravity, Urine >= 1.030 (1.005-1.030)
[2020-05-16 20:36] LABS: Bilirubin,Urine Negative (Negative); Blood, Urine Negative (Negative); Glucose,Urine (UA) Negative (Negative); Ketones,Urine Negative (Negative); UTC Leukocyte Esterase,Urine Negative (Negative); UTC Nitrate,Urine Negative (Negative); Urobilinogen,Urine 1 EU/dl (0.2)
--- NOTE | 2020-05-16 20:41 | HMH.EDUTC ---
[facility] Disposition Clinical Impression: Cystitis UTI (urinary tract infection) Qualifiers: Urinary tract infection type: site unspecified Hematuria presence: without hematuria Qualified Code(s): N39.0 - Urinary tract infection, site not specified Disposition: Home, Self-Care Condition on Discharge: Good Instructions: Acute Cystitis, DI for Acute Cystitis Additional Instructions: Drink plenty of fluids. Take tylenol or ibuprofen for pain or fever. Take the medications as directed. Follow up with your regular doctor. GO TO THE ER FOR ANY WORSENING SYMPTOMS The pyridium will make your urine turn orange, this is an expected side effect. It will stain your clothes if it comes into contact with them. Prescriptions: Sulfamethoxazole/Trimethoprim [Bactrim DS tablet] 1 each PO BID 7 Days #14 tab Transmission Status: Received by [facility] #[id number] Phenazopyridine HCl [Pyridium 200mg Tablet] 200 pow PO TID #6 tab Transmission Status: Received by [facility] #[id number] Referrals: Ye Kenny MD [Primary Care Provider] - Time of Disposition: 20:58 Medical Decision Making - Medical Records Medical records reviewed: No: I reviewed the patient's medical records. - Mason Inquiry Pt receiving controlled substance: No Vital Signs: 05/16/20 20:33 05/16/20 20:54 Temperature 98 F 98 F Temperature Source Tympanic Pulse Rate 86 Pulse Rate [Right] 88 Respiratory Rate 14 16 Blood Pressure 191/93 H Blood Pressure [Right Arm] 198/97 H Blood Pressure Mean [Right Arm] 130 Blood Pressure Source [Right Arm] Automatic Cuff Blood Pressure Position [Right Arm] Sitting 02 Sat by Pulse Oximetry 97 Oxygen Delivery Method Room Air - Lab Data Lab results reviewed: Yes: I reviewed the patient's lab results. Lab Results 05/16/20 20:34: Urine Color Yellow, Urine Appearance Clear, Urine pH 6.0, Ur Specific Ende[place] >= 1.030, Urine Protein Negative, Urine Glucose (UA) Negative, Urine Ketones Negative, Urine Blood Negative, Urine Nitrate Negative, Urine Bilirubin Negative, Urine Urobilinogen 1, Ur Leukocyte Esterase Negative Orders (Tests/Meds): ED MEDICATIONS Discontinued Medications Generic Name Dose Route Start Last Admin Trade Name Freq PRN Reason Stop Dose Admin Phenazopyridine HCl 200 mg 05/16/20 20:47 05/16/20 20:52 Phenazopyridine 200mg Tablet PO 05/16/20 20:48 200 mg ONCE ONE Administration Trimethoprim/Sulfamethoxazole 1 each 05/16/20 20:47 05/16/20 20:52 Sulfa/Trimethoprim 1 Tablet PO 05/16/20 20:48 1 each ONCE ONE Administration Protocol [facility] HPI - General Stated complaint: sharp lower Abd Pain Time Seen by Provider: 05/16/20 20:41 Mode of Arrival: Ambulatory Source of Information: Patient Limitations: No Limitations Description of Symptoms (Recalled from Triage Doc. by RN): LOWER SHARP ABD PAIN. HX OF AN INFLAMMED BLADDER. URINE IS COUDY AND ODOROUS. HEENT Symptoms (Recalled from RN notes): No Resp Symptoms (Recalled from RN notes): No Skin Symptoms (Recalled from RN notes): No MS Symptoms (Recalled from RN notes): No Functional Status (Recalled from RN notes): NA - History of Present Illness Provider Complaint: She states that since earlier today she has had dysuria, urinary frequency, and lower abdominal discomfort. She states that she has a history of interstitial cystitis. - Related Data Home Medications Medication Instructions Recorded Confirmed omeprazole 20 mg capsule,delayed 20 mg PO DAILY cap 02/01/20 05/16/20 release Ergocalciferol (Vitamin D2) 50,000 unit PO WEEKLY 02/23/20 05/16/20 [Drisdol] Ketorolac Tromethamine [Toradol 10 mg PO Q6H 02/28/20 05/16/20 10mg tablet] colestipol 1 gram tablet 1 g PO DAILY tab 05/16/20 05/16/20 Previous Rx's Medication Instructions Recorded diclofenac sodium 1 % topical gel 4 g TOPICAL QID PRN #30 g 02/14/19 cetirizine 10 mg tablet 10 mg PO QDAY
[2020-05-16 20:54] VITALS: BP 191/93; PULSE 86; RESP 16; TEMP 36.6
== END 2020-05-16 21:12 | disposition home or self-care (01) ==
PROVIDERS: Emergency Provider Nurse Practitioner Family; PCP Emergency Medicine
DX: N30.00 Acute cystitis without hematuria (principal); F41.8 Other specified anxiety disorders; K21.9 Gastro-esophageal reflux disease without esophagitis; E78.5 Hyperlipidemia, unspecified; I10 Essential (primary) hypertension; G43.709 Chronic migraine without aura, not intractable, without status migrainosus; E03.9 Hypothyroidism, unspecified; Z79.899 Other long term (current) drug therapy
CPT/HCPCS: 81003; 99202; G0463

== ENCOUNTER → 2020-06-03 14:24 | Outpatient (CLI) | payer OTHER, SELFPAY ==
--- NOTE | 2020-06-03 14:36 | XR_ITS ---
PROCEDURE: XR ANKLE WT BEARING RT MIN 3V CLINICAL INDICATION: ankle pain COMPARISON: No exams were available for comparison FINDINGS: No acute fracture or dislocation. Prominent Achilles enthesophyte is noted with multiple well-corticated calcifications along the distal of the Achilles tendon and at the Achilles enthesophyte. Kager's fat pad is preserved. There is a small calcaneal spur. IMPRESSION: Prominent Achilles enthesophyte with multiple well corticated calcifications along the distal tendon and enthesophyte. Dictated by: Ferny Jeffries MD 06/04/2020 06:51 Ferny Jeffries MD in [facility] 06/04/2020 06:51
[2020-06-03 16:15] LABS: Coronavirus 19 IgG Antibody Negative (Negative); Coronavirus 19 IgM Antibody Negative (Negative)
== END ==
PROVIDERS: Visit Provider Specialist
DX: Z20.822 Contact with and (suspected) exposure to COVID-19; M25.571 Pain in right ankle and joints of right foot
CPT/HCPCS: 36415; 73610; 86328

== ENCOUNTER → 2020-06-04 19:58 | Outpatient (CLI) | payer OTHER, SELFPAY | PROVIDERS: PCP Emergency Medicine; Visit Provider Specialist | DX: G47.33 Obstructive sleep apnea (adult) (pediatric) (principal) | CPT/HCPCS: 95811 ==

== ENCOUNTER → 2020-07-17 13:17 | Outpatient (CLI) | payer OTHER, SELFPAY | PROVIDERS: PCP Emergency Medicine; Visit Provider Nurse Practitioner Family | DX: G47.33 Obstructive sleep apnea (adult) (pediatric) (principal); G43.909 Migraine, unspecified, not intractable, without status migrainosus; Z99.89 Dependence on other enabling machines and devices | CPT/HCPCS: 94762 ==

== ENCOUNTER 2020-08-15 08:30 | Outpatient (RCR) | payer OTHER, SELFPAY ==
--- NOTE | 2020-07-22 08:31 | HMH.PTOPEV ---
PT Outpatient Evaluation Rehab PT Outpatient Evaluation Start: 07/22/20 08:01 Freq: Status: Active Protocol: Document 07/22/20 08:22 CHRISTINANoemiROWENA (Rec: 07/22/20 08:31 PHORNE [id number]) Electronically Signed By Jb Ramirez, PT 07/22/20 08:22 Outpatient Therapy Subjective History Subjective History Pt is 50 yowf who presents with c/o pain in the R post heel x 2-3 yrs with insidious onset of symptoms. She reports pain is much worse with prolonged standing or walking. She reports some relief with topical anti-inflammatory medication. She reports no c/o numbness or tingling. PMH: HL , HTN, anxiety, depression, obesity. Chief Complaint Pain Symptom Type Ache Symptoms Relieved By Rest/Positioning,OTC Meds Symptoms Aggravated By Standing,Walking Prior Functional Limitations None Current Functional Limitations Standing,Walking Symptom Description Activity Dependent Level of pain today (0-10) 5 Pain scale - at its worst (0-10) 10 Ankle/Foot Eval Gait Observation General Gait Pattern Observation No Deviations/Normal Palpation Tenderness right Ankle/Foot Palpation Findings Tenderness Ankle/Foot Palpation Overall Comment post heel at achilles insertion ROM Ankle/Foot Dorsiflexion w/Knee Extended 0-17 Active Range Motion (degrees) Ankle/Foot Plantar Flexion Active Range 0-38 of Motion (degrees) Ankle/Foot Eversion Active Range of 0-23 Motion (degrees) Ankle/Foot Inversion Active Range of 0-30 Motion (degrees) MMT Ankle Dorsiflexion Strength Grade 5 Normal Ankle Plantarflexion Strength Grade 5 Normal Foot Eversion Strength Grade 5 Normal Foot Inversion Strength Grade 5 Normal Special Tests Ankle Anterior Drawer Test Negative Left,Negative Right Ankle Eversion Test Negative Left,Negative Right Talar Tilt Test Negative Left,Negative Right Ankle Posterior Drawer Test Negative Left,Negative Right Outpatient Therapy Assessment Impairments Problems/Impairmments Palpation Tenderness,Impaired Range of Motion,Impaired Walking,Impaired Standing, Subjective C/O Pain,Impaired Self Care/Self Management Prognosis Rehab Potential Good Clinical Impression Consistent with Diagnosis Yes Short Term Goals Number of Weeks 4 Decreas
== END 2020-08-15 08:35 | disposition home or self-care (01) ==
LOC: PT 08:30
PROVIDERS: PCP Emergency Medicine; Visit Provider Orthopaedic Surgery
DX: M25.572 Pain in left ankle and joints of left foot (principal); M76.61 Achilles tendinitis, right leg
CPT/HCPCS: 97010; 97014; 97035; 97110; 97163; G0283

== ENCOUNTER → 2020-10-15 07:35 | Outpatient (CLI) | payer OTHER, SELFPAY ==
--- NOTE | 2020-10-15 | CA_ITS ---
APPROVED REPORT Exam: Pharmacologic Technologist: geovanni perez, Ht: 5 ft 7 in Wt: 330 lbs BSA: 2.50 m2 HR: 62 bpm BP: 147/63 mmHg Indications: CP Medical History Medications: Levothyroxine,,,,, Mirapex,,,,, Buspirone,,,,, Lasix,,,,, Diclofenac,,,,, WELLBUTRIN,,,,, DOxazosin,,,,, Bentyl,,,,, TopAMAX,,,,, PYRIDum,,,,, Metprolol,,,,, Altoprev,,,,, Allergies: PCN Cardiac Risk Factors: HTN, Hyperlipidemia, FHX of CAD Stress Test Details Test: LEXISCAN HR Resting HR: 63 bpm Max Heart Rate (APMHR): 170.254391 bpm Max HR Achieved: 79 bpm Target HR (85% APMHR): 144.942616 bpm % of APMHR: 46.47 Recovery HR: 74 bpm BP Resting BP: 147/63 mmHg Max BP: 147/63 mmHg Recovery BP: 130.0/66.0 mmHg ECG Resting ECG: NSR, low voltage QRS Clinical Exercise duration: 04:00 min Highest Stage Achieved: Exercise capacity: 1.0 METs Stress ECG Conclusion Symptoms: SOA. No arhhythmia or ectopy. No significant ST changes. Unremarkable Lexiscan stress. Images reported separately. Electronically signed by : Carlos Alberto Guerrier, 10/15/2020 21:15:24
--- NOTE | 2020-10-15 07:36 | NM_ITS ---
APPROVED REPORT Exam: Nuclear Stress Test Indication: Chest pain, SOB, HTN, High cholesterol, Family history Patient Location: Outpatient Stress Tech: La Cook NM Tech:Gertrude Vicente, ARRT, RT (R)(N) Ht: 5 ft 7 in Wt: 328 lbs Bra Size: 44D HR: 62 bpm BP: 147/63 mmHg BSA: 2.50 m2 BMI: 51.3 Procedure: Patient received a 0.4 mg of intravenous Lexiscan, resting heart rate 62 bpm, resting blood pressure 147/63 mmHg, with Lexiscan maximum heart rate achived was 75 bpm which is Less than 85 % of the maximum predicted heart rate and blood pressure was 136/72 mmHg. With Lexiscan, patient denied any complaint of chest pain. Electrocardiogram Resting electrocardiogram showed sinus rhythm, with Lexiscan there is less than 1.[address] segment depression noted from the baseline EKG. The EKG portion of the Lexiscan is nondiagnostic. Cardiac Stress and Resting SPECT Images: Cardiac Stress and Resting SPECT images were obtained using technetium 99m Myoview 32.1 mCi stress and 0.51 mCi at rest. Patient refused to lay on stomach for prone images, said she was unable to do to being claustrophobic. Gated SPECT for analysis of segmental wall motion and calculation of the ejection fraction also done. Cardiac stress and resting SPECT images show mild fixed defect in the anterior wall with normal cesar gated SPECT is likely secondary to soft tissue attenuation, however there is transient ischemic dilatation of the left ventricle seen, raising the concerns for presence of balanced ischemia. Other causes for the transient ischemic dilatation is hypertensive heart disease, microvascular disease, and diabetes mellitus. Computer derived ejection fraction is 63% with no regional wall motion abnormality, right ventricle is normal size and contractility. Conclusion: 1. The EKG portion of the Lexiscan is nondiagnostic. 2. No scintigraphic evidence of reversible ischemia seen, computer derived ejection fraction is 62% with no regional wall motion abnormality, right ventricle is normal size and contractility. There is transient ischemic dilatation of the left ventricle seen, this is seen in balanced ischemia, hypertensive heart disease, elevated left ventricular end-diastolic pressure, microvascular disease and diabetes. Clinical correlation is recommended. 3. Likely abnormal Lexiscan Myoview study. Electronically signed by : Carlos Alberto Guerrier, 10/15/2020 21:22:51
--- NOTE | 2020-10-15 08:18 | CA_ITS ---
APPROVED REPORT EXAM: Comprehensive 2D, Doppler, and color-flow Echocardiogram Site Safety Manager: Nicole Best RVT Ht: 5 ft 7 in Wt: 333lbs BSA: 2.51 BP: 183/122 mmHg Indications: CP,EDEMA,SOA,OBESITY,GERD,HTN,HLD,FATIGUE 2D Dimensions LVOT 2.34 cm (M/F) 1.5-2.5 LA Volume 30.50 mL LA Volume Index 12.15 mL/m2 (M/F) 16-34 M-Mode Dimensions RVDd 2.93 cm (0.9-2.6) LA Diam 3.30 cm (1.9-4.0) LVDd 4.33 cm (3.5-5.7) Ao Diam 3.11 cm (2.0-3.7) LVDs 2.63 cm (3.5-5.7) IVSd 0.98 cm (0.6-1.1) PWd 1.19 cm (0.6-1.1) EF (Teich) 70.00% FS 39.30% EDV (Teich) 84.40 mL TAPSE 2.40 (<1.7) ESV (Teich) 25.30 mL LV Diastology E Decel Time 197.00 (160-240 msec) E/A Ratio 1.5 MED E' 7.00 (< 7 cm/sec) E'/MED E' Ratio 13.63 (>14) LAT E' 8.40 (<10 cm/sec) E/LAT E' Ratio 11.36 (>14) Aortic Valve AO Peak GR. 8.80 mmHg Mitral Valve MV E Max Tony. 95.00 (40-130 cm/s) MV A Velocity 63.00 (40-130 cm/s) E/A Ratio 1.50 MV Decel. Time 197.00 (160-240 ms) MV PHT 58.00 ms Pulmonary Valve PV Peak Velocity 73.00 (50-150 cm/s) Tricuspid Valve TR P. Velocity 160.00 cm/s RAP Estimate 10.00 mmHg RVSP 20.30 mmHg Left Ventricle Left atrium is mildly enlarged, left ventricle is normal size, mild concentric left ventricular hypertrophy, visually estimated ejection fraction 55% with no regional wall motion abnormality, diastolic parameters are inconclusive. Right Ventricle Right atrium and right ventricle are mildly enlarged with normal contractility. Aortic Valve Aortic valve is minimally thickened and fibrosed, there is no aortic stenosis or aortic insufficiency. Mitral Valve Mitral valve grossly normal, there is trace mitral regurgitation. Tricuspid Valve Tricuspid grossly normal, there is trace tricuspid regurgitation, tricuspid regurgitation jet velocity is inadequate for calculation of the right ventricular systolic pressure. Pulmonic Valve Pulmonic valve is poorly visualized. Great Vessels Aortic root is normal size. Pericardium No significant pericardial effusion noted. Conclusion 1. Mild biatrial enlargement, normal left ventricular size, mild concentric left ventricular hypertrophy, visually estimated ejection fraction 55% with no regional wall motion abnormality, diastolic parameters are inconclusive. 2. Mildly enlarged right ventricle with normal contractility. 3. Trace mitral and tricuspid regurgitation. 4. No significant pericardial effusion noted. Electronically signed by : Carlos Alberto Guerrier, 10/15/2020 20:58:01
--- NOTE | 2020-10-15 09:09 | HMH.ITSHM ---
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 []DOXAZOSIN BUPROPION HYDROXYZINE LOVASTATIN PRAMIPEXOLE METOPROLOL LEVOTHYROXINE BUSPIRONE DICLOFENAC COLESTIOPOL VITAMIN D NURTEC CARIPRAZINE
== END ==
PROVIDERS: PCP Emergency Medicine; Visit Provider Nurse Practitioner Family
DX: R07.9 Chest pain, unspecified (principal); R60.0 Localized edema; R94.31 Abnormal electrocardiogram [ECG] [EKG]
CPT/HCPCS: 78452; 93017; 93306; A9502; J2785

== ENCOUNTER → 2020-11-11 11:37 | Outpatient (CLI) | payer OTHER, SELFPAY ==
[2020-11-11 12:49] LABS: Anion Gap 11.4 mEq/L (5-15); Blood Urea Nitrogen 19 mg/dl (7-17); Calcium 8.9 mg/dl (8.4-10.2); Carbon Dioxide 21 mmol/L (22.0-30.0); Chloride 112 mmol/L (98-107); Estimated Glomerular Filt Rate 66 ml/min (>60); GFR (African American) 80 ML/MIN (>60); Glucose 134 mg/dl (74-100); Potassium 4.4 mmoL/L (3.5-5.1); Sodium 140 mmol/L (136-145)
== END ==
PROVIDERS: Visit Provider Internal Medicine Cardiovascular Disease
DX: R07.9 Chest pain, unspecified (principal)
CPT/HCPCS: 36415; 80048

== ENCOUNTER → 2021-08-04 13:54 | Outpatient (CLI) | payer OTHER, SELFPAY ==
--- NOTE | 2021-08-04 14:02 | XR_ITS ---
FINAL REPORT CLINICAL HISTORY: shoulder pain FINDINGS: Three views of the right shoulder were obtained. There is no prior exam for comparison. There is no fracture or dislocation. There has likely been surgery at the acromioclavicular joint. Soft tissues are normal. IMPRESSION: No acute osseous abnormality of the right shoulder. Reviewed, Interpreted and Dictated by Cherrie Copeland MD Transcribed by Saji Umana Authenticated by Cherrie Copeland MD on 08/04/2021 04:20:08 PM [facility]
== END ==
PROVIDERS: PCP Nurse Practitioner Family; Visit Provider Nurse Practitioner Family
DX: M25.511 Pain in right shoulder (principal)
CPT/HCPCS: 73030

== ENCOUNTER 2021-11-18 17:58 | Emergency (ER) | payer OTHER, SELFPAY ==
--- NOTE | 2021-11-18 19:44 | EXP.UTC ---
Discharge Plan Disposition Patient Disposition: Home, Self-Care Condition: Good Prescriptions Prescriptions: New azithromycin [Zithromax] 250 mg tablet 250 mg PO UD DOSE PK Qty: 6 0RF Rx Instructions: Take two (2) tablets today, then one (1) tablet days #2 thru #5 methylprednisolone 4 mg Tablets,Dose Pack 4 mg PO DIRECTED Qty: 21 0RF Paxlovid (EUA) 300 mg (150 mg x 2)-100 mg tablet See Rx Instructions .ROUTE .COMPLEX Qty: 30 0RF Rx Instructions: take TWO 150 mg tablets of nirmatrelvir with ONE 100 mg tablet of ritonavir twice daily for 5 days No Action famotidine [Pepcid] 20 mg tablet 20 mg PO DAILY Qty: 90 3RF losartan 50 mg tablet 50 mg PO DAILY Qty: 90 3RF rosuvastatin [Crestor] 20 mg tablet 20 mg PO DAILY Qty: 90 3RF fluticasone propionate 50 mcg/actuation spray,suspension 1 spray INTRANASAL DAILY Qty: 9.9 0RF topiramate 100 mg tablet 200 mg PO HS Qty: 60 10RF cetirizine 10 mg tablet 10 mg PO QDAY 90 Days Qty: 90 3RF hydroxyzine pamoate [Vistaril] 25 mg capsule 25 mg PO TID PRN (Reason: for increased anxiety) Qty: 90 1RF levothyroxine 75 mcg tablet See Rx Instructions .ROUTE .COMPLEX Qty: 90 0RF Dose Instruction: TAKE 1 TABLET BY MOUTH EVERY DAY FOR THYROID Rx Instructions: TAKE 1 TABLET BY MOUTH EVERY DAY FOR THYROID bupropion HCl 75 mg tablet 75 mg PO .COMPLEX Qty: 21 0RF Rx Instructions: 75 mg PO take 2 tablet in the am for 7 days; then take 1 tablet in the am for 7 days; then stop buspirone 10 mg tablet 20 mg PO BID Qty: 120 1RF furosemide 40 mg tablet 40 mg PO BID PRN (Reason: Fluid) Qty: 30 5RF ergocalciferol (vitamin D2) 1,250 mcg (50,000 unit) capsule 50,000 unit PO WEEKLY Qty: 7 2RF pramipexole 0.25 mg tablet 0.25 mg PO HS Qty: 90 1RF doxazosin 4 mg tablet See Rx Instructions .ROUTE .COMPLEX Qty: 90 0RF Dose Instruction: TAKE 1 TABLET BY MOUTH EVERY NIGHT AT BEDTIME Rx Instructions: TAKE 1 TABLET BY MOUTH EVERY NIGHT AT BEDTIME estradiol 2 mg tablet See Rx Instructions .Route .COMPLEX Qty: 90 3RF Rx Instructions: TAKE 1 TABLET BY MOUTH ONCE DAILY FOR SUPPLEMENT Vraylar 3 mg capsule 3 mg PO DAILY Qty: 30 1RF venlafaxine [Effexor XR] 75 mg capsule,extended release 24hr 75 mg PO DAILY Qty: 30 1RF omeprazole 40 mg capsule,delayed release(DR/EC) 40 mg PO DAILY Qty: 30 2RF diclofenac sodium 75 mg tablet,delayed release (DR/EC) See Rx Instructions .ROUTE .COMPLEX Qty: 180 0RF Dose Instruction: TAKE 1 TABLET BY MOUTH TWICE DAILY FOR ARTHRITIS Rx Instructions: TAKE 1 TABLET BY MOUTH TWICE DAILY FOR ARTHRITIS Referrals Follow up/Referrals: Ye Kenny MD [Primary Care Provider] - See instructions Activity Restrictions/Add. Instructions Additional Instructions/Restrictions: Drink plenty of fluids. Take tylenol or ibuprofen for pain or fever. Take the medications as directed. Follow up with your regular doctor. GO TO THE ER FOR ANY WORSENING SYMPTOMS Quarantine until you know the results of your covid-19 test. Notify your school or workplace of your results and follow their instructions regarding return to work/school. Don't start the oral steroids until tomorrow, since you had the shot here today. Wait for the results of the pcr covid test before you get the paxlovid medication and take it. It is only to be taken if you are positive for covid-19. Start the other medications tomorrow. Clinical Impressions Clinical Impression: Acute viral syndrome, Acute bronchitis Stand Alone Forms Stand Alone Forms: Work/School Release Instructions Patient Instructions: DI for Viral Syndrome, Coronavirus Disease 2019, Preventing the Spread of Coronavirus Discharge Instructions Discharge ED Provider: Tony Naqvi [facility] HPI General Stated complaint: covid test, Sorw throat,cough,congestion
[2021-11-18 19:55] VITALS: BP 181/89; PULSE 90; RESP 17; TEMP 37.2; O2SAT 99; BMI 50.1
[2021-11-18 20:20] VITALS: BP 181/89; PULSE 90; RESP 17; TEMP 37.2
== END 2021-11-18 20:26 | disposition home or self-care (01) ==
PROVIDERS: Emergency Provider Nurse Practitioner Family; PCP Emergency Medicine
DX: J02.9 Acute pharyngitis, unspecified; R94.31 Abnormal electrocardiogram [ECG] [EKG]; R94.39 Abnormal result of other cardiovascular function study; R05.9 Cough, unspecified; I10 Essential (primary) hypertension; K21.9 Gastro-esophageal reflux disease without esophagitis; E78.5 Hyperlipidemia, unspecified; E66.9 Obesity, unspecified; F32.A Depression, unspecified; F41.9 Anxiety disorder, unspecified; Z79.51 Long term (current) use of inhaled steroids; Z79.52 Long term (current) use of systemic steroids; Z79.890 Hormone replacement therapy; Z79.899 Other long term (current) drug therapy; Z88.0 Allergy status to penicillin; Z68.43 Body mass index [BMI] 50.0-59.9, adult
CPT/HCPCS: 96372; 99213; C9803; G0463; U0003; U0005

== ENCOUNTER 2021-11-25 14:58 | Emergency (ER) | payer OTHER, SELFPAY ==
[2021-11-25 16:00] VITALS: BP 163/91; PULSE 78; RESP 22; TEMP 36.6; O2SAT 98; BMI 51.7
--- NOTE | 2021-11-25 16:29 | EXP.UTC ---
Discharge Plan Disposition Patient Disposition: Home, Self-Care Condition: Good Prescriptions Prescriptions: No Action famotidine [Pepcid] 20 mg tablet 20 mg PO DAILY Qty: 90 3RF losartan 50 mg tablet 50 mg PO DAILY Qty: 90 3RF rosuvastatin [Crestor] 20 mg tablet 20 mg PO DAILY Qty: 90 3RF fluticasone propionate 50 mcg/actuation spray,suspension 1 spray INTRANASAL DAILY Qty: 9.9 0RF topiramate 100 mg tablet 200 mg PO HS Qty: 60 10RF cetirizine 10 mg tablet 10 mg PO QDAY 90 Days Qty: 90 3RF hydroxyzine pamoate [Vistaril] 25 mg capsule 25 mg PO TID PRN (Reason: for increased anxiety) Qty: 90 1RF levothyroxine 75 mcg tablet See Rx Instructions .ROUTE .COMPLEX Qty: 90 0RF Dose Instruction: TAKE 1 TABLET BY MOUTH EVERY DAY FOR THYROID Rx Instructions: TAKE 1 TABLET BY MOUTH EVERY DAY FOR THYROID bupropion HCl 75 mg tablet 75 mg PO .COMPLEX Qty: 21 0RF Rx Instructions: 75 mg PO take 2 tablet in the am for 7 days; then take 1 tablet in the am for 7 days; then stop buspirone 10 mg tablet 20 mg PO BID Qty: 120 1RF furosemide 40 mg tablet 40 mg PO BID PRN (Reason: Fluid) Qty: 30 5RF ergocalciferol (vitamin D2) 1,250 mcg (50,000 unit) capsule 50,000 unit PO WEEKLY Qty: 7 2RF pramipexole 0.25 mg tablet 0.25 mg PO HS Qty: 90 1RF doxazosin 4 mg tablet See Rx Instructions .ROUTE .COMPLEX Qty: 90 0RF Dose Instruction: TAKE 1 TABLET BY MOUTH EVERY NIGHT AT BEDTIME Rx Instructions: TAKE 1 TABLET BY MOUTH EVERY NIGHT AT BEDTIME estradiol 2 mg tablet See Rx Instructions .Route .COMPLEX Qty: 90 3RF Rx Instructions: TAKE 1 TABLET BY MOUTH ONCE DAILY FOR SUPPLEMENT Vraylar 3 mg capsule 3 mg PO DAILY Qty: 30 1RF venlafaxine [Effexor XR] 75 mg capsule,extended release 24hr 75 mg PO DAILY Qty: 30 1RF omeprazole 40 mg capsule,delayed release(DR/EC) 40 mg PO DAILY Qty: 30 2RF diclofenac sodium 75 mg tablet,delayed release (DR/EC) See Rx Instructions .ROUTE .COMPLEX Qty: 180 0RF Dose Instruction: TAKE 1 TABLET BY MOUTH TWICE DAILY FOR ARTHRITIS Rx Instructions: TAKE 1 TABLET BY MOUTH TWICE DAILY FOR ARTHRITIS azithromycin [Zithromax] 250 mg tablet 250 mg PO UD DOSE PK Qty: 6 0RF Rx Instructions: Take two (2) tablets today, then one (1) tablet days #2 thru #5 methylprednisolone 4 mg Tablets,Dose Pack 4 mg PO DIRECTED Qty: 21 0RF Paxlovid (EUA) 300 mg (150 mg x 2)-100 mg tablet See Rx Instructions .ROUTE .COMPLEX Qty: 30 0RF Rx Instructions: take TWO 150 mg tablets of nirmatrelvir with ONE 100 mg tablet of ritonavir twice daily for 5 days Referrals Follow up/Referrals: Ye Kenny MD [Primary Care Provider] - See instructions Activity Restrictions/Add. Instructions Additional Instructions/Restrictions: *Monitor Temp, Over the counter Motrin or Tylenol as directed/as needed Tylenol every 4 hours and Motrin every 6 hours (as long as your family doctor has told you that you can take it) for fever or pain. and straight to ER if unable to lower temp less than 101.0 after medication given Follow up IMMEDIATELY for new or worsening symptoms or no Noticeable improvement over the next 48-72 hours. 911 for difficulty breathing or swallowing You were tested for today for COVID19 your test result should be back in the next 24-48 hours, you may check your results on the [facility] My Health Portal Make sure to take your Vitamins Vit. C Vit D and Zinc if you can take them Clinical Impressions Clinical Impression: Encounter for laboratory testing for COVID-19 virus Stand Alone Forms Stand Alone Forms: Work/School Release Instructions Patient Instructions: Coronavirus Disease 2019, Preventing the Spread of Coronavirus Discharge Instructions Discharge ED Provider[place] Deanna Carran[place] [facility] [place] General Stated complaint: covid test Mode of Arrival: Ambulatory
[2021-11-25 16:35] VITALS: BP 163/91; PULSE 78; RESP 22; TEMP 36.6; O2SAT 98
== END 2021-11-25 16:37 | disposition home or self-care (01) ==
PROVIDERS: Emergency Provider Nurse Practitioner; PCP Emergency Medicine
DX: U07.1 COVID-19 (principal)
CPT/HCPCS: 99212; C9803; G0463; U0003; U0005

== ENCOUNTER 2021-12-14 12:45 | Emergency (ER) | payer OTHER, SELFPAY ==
[2021-12-14 12:50] VITALS: BP 203/92; PULSE 87; RESP 20; TEMP 36.4; O2SAT 99; BMI 51.7
--- NOTE | 2021-12-14 13:07 | EXP.UTC ---
Discharge Plan Disposition Patient Disposition: Home, Self-Care Condition: Good Prescriptions Prescriptions: New cephalexin 500 mg capsule 500 mg PO QID 10 Days Qty: 40 0RF No Action famotidine [Pepcid] 20 mg tablet 20 mg PO DAILY Qty: 90 3RF losartan 50 mg tablet 50 mg PO DAILY Qty: 90 3RF rosuvastatin [Crestor] 20 mg tablet 20 mg PO DAILY Qty: 90 3RF fluticasone propionate 50 mcg/actuation spray,suspension 1 spray INTRANASAL DAILY Qty: 9.9 0RF topiramate 100 mg tablet 200 mg PO HS Qty: 60 10RF cetirizine 10 mg tablet 10 mg PO QDAY 90 Days Qty: 90 3RF hydroxyzine pamoate [Vistaril] 25 mg capsule 25 mg PO TID PRN (Reason: for increased anxiety) Qty: 90 1RF levothyroxine 75 mcg tablet See Rx Instructions .ROUTE .COMPLEX Qty: 90 0RF Dose Instruction: TAKE 1 TABLET BY MOUTH EVERY DAY FOR THYROID Rx Instructions: TAKE 1 TABLET BY MOUTH EVERY DAY FOR THYROID bupropion HCl 75 mg tablet 75 mg PO .COMPLEX Qty: 21 0RF Rx Instructions: 75 mg PO take 2 tablet in the am for 7 days; then take 1 tablet in the am for 7 days; then stop buspirone 10 mg tablet 20 mg PO BID Qty: 120 1RF furosemide 40 mg tablet 40 mg PO BID PRN (Reason: Fluid) Qty: 30 5RF ergocalciferol (vitamin D2) 1,250 mcg (50,000 unit) capsule 50,000 unit PO WEEKLY Qty: 7 2RF pramipexole 0.25 mg tablet 0.25 mg PO HS Qty: 90 1RF doxazosin 4 mg tablet See Rx Instructions .ROUTE .COMPLEX Qty: 90 0RF Dose Instruction: TAKE 1 TABLET BY MOUTH EVERY NIGHT AT BEDTIME Rx Instructions: TAKE 1 TABLET BY MOUTH EVERY NIGHT AT BEDTIME estradiol 2 mg tablet See Rx Instructions .Route .COMPLEX Qty: 90 3RF Rx Instructions: TAKE 1 TABLET BY MOUTH ONCE DAILY FOR SUPPLEMENT Vraylar 3 mg capsule 3 mg PO DAILY Qty: 30 1RF venlafaxine [Effexor XR] 75 mg capsule,extended release 24hr 75 mg PO DAILY Qty: 30 1RF omeprazole 40 mg capsule,delayed release(DR/EC) 40 mg PO DAILY Qty: 30 2RF diclofenac sodium 75 mg tablet,delayed release (DR/EC) See Rx Instructions .ROUTE .COMPLEX Qty: 180 0RF Dose Instruction: TAKE 1 TABLET BY MOUTH TWICE DAILY FOR ARTHRITIS Rx Instructions: TAKE 1 TABLET BY MOUTH TWICE DAILY FOR ARTHRITIS azithromycin [Zithromax] 250 mg tablet 250 mg PO UD DOSE PK Qty: 6 0RF Rx Instructions: Take two (2) tablets today, then one (1) tablet days #2 thru #5 methylprednisolone 4 mg Tablets,Dose Pack 4 mg PO DIRECTED Qty: 21 0RF Paxlovid (EUA) 300 mg (150 mg x 2)-100 mg tablet See Rx Instructions .ROUTE .COMPLEX Qty: 30 0RF Rx Instructions: take TWO 150 mg tablets of nirmatrelvir with ONE 100 mg tablet of ritonavir twice daily for 5 days Referrals Follow up/Referrals: Ye Kenny MD [Primary Care Provider] - See instructions Activity Restrictions/Add. Instructions Additional Instructions/Restrictions: *Start antibiotic(s) immediately and be sure to take as ordered for the FULL length of time although you may be feeling better or start to see improvement in the next 24-48 hours *Monitor closely. Outlined redness so that you can monitor easier. Follow up immediately for new or worsening symptoms including but not limited to redness, swelling, streaking from site fever or chills. *Warm compress 15 minutes 3-4 times day *Never squeeze or pop these on your own. Seek immediate medical attention next time this occurs *Monitor Temp. Tylenol every 4 hours as needed and ibuprofen every 6 hours as needed (as long as your primary care doctor has told you that it is ok to take both. For fever, aches, pain. ER if no less that 101 despite Tylenol and ibuprofen ?Follow up with your family doctor/primary care physician in the next 48-72 hours if no improvement Clinical Impressions Clinical Impression: Cellulitis Qualifiers: Site of cellulitis: unspecified site Qualified Code(s): L03.90 - Cellulitis, u
[2021-12-14 13:10] VITALS: BP 147/80
[2021-12-14 13:49] VITALS: BP 147/80; PULSE 87; RESP 20; TEMP 36.4; O2SAT 99
== END 2021-12-14 13:54 | disposition home or self-care (01) ==
PROVIDERS: Emergency Provider Nurse Practitioner; PCP Emergency Medicine
DX: L03.116 Cellulitis of left lower limb (principal); L03.115 Cellulitis of right lower limb; Z88.0 Allergy status to penicillin; F41.9 Anxiety disorder, unspecified; F32.A Depression, unspecified; K21.9 Gastro-esophageal reflux disease without esophagitis; E78.5 Hyperlipidemia, unspecified; I10 Essential (primary) hypertension; G43.909 Migraine, unspecified, not intractable, without status migrainosus
CPT/HCPCS: 99283

== ENCOUNTER → 2022-02-02 10:33 | Outpatient (CLI) | payer OTHER, SELFPAY ==
[2022-02-02 11:33] LABS: Chloride 105 mmol/L (98-107)
[2022-02-02 11:34] LABS: Potassium 4.3 mmoL/L (3.5-5.1); Sodium 140 mmol/L (136-145)
[2022-02-02 11:36] LABS: Alanine Aminotransferase 27 U/L (12-78); Anion Gap 12.3 mEq/L (5-15); Aspartate Amino Transferase 27 U/L (14-36); Bilirubin,Unconjugated 0.2 mg/dL (0.0-1.1); Blood Urea Nitrogen 17 mg/dl (7-17); Carbon Dioxide 27 mmol/L (22.0-30.0); Estimated Glomerular Filt Rate 66 ml/min (>60); GFR (African American) 80 ML/MIN (>60)
[2022-02-02 11:37] LABS: Albumin Level 3.5 g/dl (3.5-5.0); Alkaline Phosphatase 101 U/L (38-126); Bilirubin,Direct 0.1 mg/dl (0.0-0.4); Bilirubin,Indirect 0.2 mg/dL (0.0-0.9); Bilirubin,Total 0.3 mg/dl (0.2-1.3); Calcium 9.3 mg/dl (8.4-10.2); Chol/HDL Ratio 2.5 (1-3.5); Cholesterol 152 mg/dl (140-200); Glucose 124 mg/dl (74-100); HDL Cholesterol 60 mg/dl (40-60); Magnesium 1.6 mg/dl (1.6-2.3); Total Protein,Serum 6.1 g/dl (6.3-8.2); Triglycerides 179 mg/dl (30-150); VLDL Cholesterol 36 mg/dL (0-40)
[2022-02-02 11:48] LABS: Direct LDL Cholesterol 64.35 mg/dL (100-129)
[2022-02-02 12:08] LABS: Thyroid Stimulating Hormone 3.63 uIU/mL (0.465-4.68)
[2022-02-02 12:12] LABS: Free T4 (Free Thyroxine) 1.63 ng/dl (0.78-2.19)
[2022-02-02 14:30] LABS: Basophils # 0.1 K/mm3 (0-0.2); Basophils % 1.2 % (0.1-2.0); Eosinophils # 0.2 K/mm3 (0.0-0.4); Hematocrit 41.4 % (37.0-47.0); Hemoglobin 13.8 g/dL (12.2-16.2); Lymphocytes # 2.5 K/mm3 (0.7-4.5); Lymphocytes % 25.7 % (10-50); Mean Corpuscular HGB Conc 33.5 g/dL (31.8-35.4); Mean Corpuscular Hemoglobin 30.7 pg (27.0-31.2); Mean Corpuscular Volume 91.6 fl (81-99); Mean Platelet Volume 9.6 fl (7.4-10.4); Monocytes # 0.6 K/mm3 (0.1-1.0); Monocytes % 5.8 % (1.7-9.3); Neutrophils # 6.3 K/mm3 (1.8-7.8); Neutrophils % 65.5 % (37.0-80.0); Platelet Count 303 K/mm3 (142-424); Red Blood Count 4.51 M/mm3 (4.20-5.40); Red Cell Distribution Width 14.2 % (11.5-17.5); White Blood Count 9.6 K/mm3 (4.8-10.8)
== END ==
PROVIDERS: PCP Emergency Medicine; Visit Provider Nurse Practitioner Family
DX: R06.00 Dyspnea, unspecified (principal); I10 Essential (primary) hypertension; E78.2 Mixed hyperlipidemia; R60.0 Localized edema; R94.31 Abnormal electrocardiogram [ECG] [EKG]
CPT/HCPCS: 36415; 80048; 80061; 80076; 83735; 84439; 84443; 85025

== ENCOUNTER → 2022-03-02 09:40 | Outpatient (CLI) | payer OTHER, SELFPAY ==
--- NOTE | 2022-03-02 09:44 | CA_ITS ---
APPROVED REPORT EXAM: Comprehensive 2D, Doppler, and color-flow Echocardiogram Electromechanical Engineer: Shea Grace RDCS Ht: 5 ft 7 in Wt: 338lbs BSA: 2.53 BP: 122/82 mmHg Indications: SOA,JEFFRIES,CP,EDEMA,HTN,HLP,MORBID OBESITY 2D Dimensions LVOT 2.14 cm (M/F) 1.5-2.5 M-Mode Dimensions RVDd 2.66 cm (0.9-2.6) LA Diam 3.27 cm (1.9-4.0) LVDd 5.71 cm (3.5-5.7) Ao Diam 3.47 cm (2.0-3.7) LVDs 3.66 cm (3.5-5.7) IVSd 1.13 cm (0.6-1.1) PWd 1.17 cm (0.6-1.1) EF (Teich) 64.80% FS 35.90% EDV (Teich) 160.70 mL ESV (Teich) 56.60 mL LV Diastology E Decel Time 150.00 (160-240 msec) E/A Ratio 1.1 MED E' 8.10 (< 7 cm/sec) E'/MED E' Ratio 9.43 (>14) LAT E' 7.50 (<10 cm/sec) E/LAT E' Ratio 10.19 (>14) Mitral Valve MV E Max Tony. 76.00 (40-130 cm/s) MV A Velocity 71.00 (40-130 cm/s) E/A Ratio 1.08 MV Decel. Time 150.00 (160-240 ms) MV PHT 44.00 ms Left Ventricle Left atrium is mildly enlarged, left ventricle is normal size, mild concentric left ventricular hypertrophy, estimated ejection fraction 55% with no regional wall motion abnormality, diastolic parameters are inconclusive. Right Ventricle Right atrium and right ventricle are mildly enlarged with normal contractility. Aortic Valve Aortic valve is minimally thickened and fibrosed there is no aortic stenosis or aortic insufficiency. Mitral Valve Mitral valve is grossly normal, there is trace mitral regurgitation. Tricuspid Valve Tricuspid valve is grossly normal, there is trace tricuspid regurgitation, tricuspid regurgitation jet velocity is inadequate for calculation of the right ventricular systolic pressure. Pulmonic Valve Pulmonic valve is poorly visualized. Great Vessels Aortic root is normal size. Inferior vena cava is poorly visualized. Pericardium No significant pericardial effusion noted. Conclusion 1. Mild biatrial enlargement, normal left ventricular size, mild concentric left ventricular hypertrophy, estimated ejection fraction 55% with no regional wall motion abnormality, diastolic parameters are inconclusive. 2. Mildly enlarged right ventricle with normal contractility. 3. Trace mitral and tricuspid regurgitation. 4. No significant pericardial effusion. 5. Inferior vena cava is poorly visualized. Electronically signed by : Carlos Alberto Guerrier MD 03/02/2022 21:33:16
== END ==
PROVIDERS: PCP Physician Assistant; Visit Provider Nurse Practitioner Family
DX: R06.00 Dyspnea, unspecified (principal); I10 Essential (primary) hypertension; E78.2 Mixed hyperlipidemia; R60.0 Localized edema; R94.31 Abnormal electrocardiogram [ECG] [EKG]
CPT/HCPCS: 93306

== ENCOUNTER → 2022-04-03 16:08 | Outpatient (CLI) | payer OTHER, SELFPAY ==
[2022-04-03 18:34] LABS: Anion Gap 11.6 mEq/L (5-15); Blood Urea Nitrogen 18 mg/dl (7-17); Calcium 8.5 mg/dl (8.4-10.2); Carbon Dioxide 25 mmol/L (22.0-30.0); Chloride 105 mmol/L (98-107); Estimated Glomerular Filt Rate 76 ml/min (>60); GFR (African American) 92 ML/MIN (>60); Glucose 143 mg/dl (74-100); Potassium 4.6 mmoL/L (3.5-5.1); Sodium 137 mmol/L (136-145)
== END ==
PROVIDERS: PCP Physician Assistant; Visit Provider Nurse Practitioner Family
DX: R06.00 Dyspnea, unspecified (principal); I10 Essential (primary) hypertension; E78.2 Mixed hyperlipidemia; R60.0 Localized edema; R94.31 Abnormal electrocardiogram [ECG] [EKG]
CPT/HCPCS: 36415; 80048

== ENCOUNTER → 2022-04-22 14:27 | Outpatient (CLI) | payer OTHER, SELFPAY ==
--- NOTE | 2022-04-22 14:38 | XR_ITS ---
FINAL REPORT TECHNIQUE: Chest PA & Lateral CLINICAL HISTORY: SOA COMPARISON: 04/25/2020 FINDINGS: TWO-VIEW CHEST 2 views of the chest were performed. The heart size is normal. The mediastinum is within normal limits. There is no acute cardiopulmonary process. There are no pleural effusions. There is no pneumothorax. The bony thorax appears intact. IMPRESSION: No acute cardiopulmonary process. Reviewed, Interpreted and Dictated by Cecil Bess MD Transcribed by Raina Jean Authenticated and [facility]
== END ==
PROVIDERS: PCP Emergency Medicine; Visit Provider Physician Assistant
DX: R06.00 Dyspnea, unspecified (principal)
CPT/HCPCS: 71046

== ENCOUNTER → 2022-04-30 06:52 | Outpatient (CLI) | payer OTHER, SELFPAY ==
--- NOTE | 2022-04-30 06:53 | CA_ITS ---
APPROVED REPORT Exam: Pharmacologic Technologist: Nikki Nunez, Ht: 5 ft 7 in Wt: 332 lbs BSA: 2.51 m2 HR: 70 bpm BP: 162/68 mmHg Medical History Medications: Omeprazole,,,,, Levothyroxine,,,,, Losartan,,,,, Pramipexole,,,,, Buspirone,,,,, Crestor,,,,, Aldactone,,,,, Vitamin D2,,,,, PEPcid,,,,, Vistaril,,,,, Estradilol,,,,, CetIRIZINE,,,,, Stress Test Details Test: LEXISCAN Reason for pharmacologic stress test: physical limitation. HR Resting HR: 74 bpm Max Heart Rate (APMHR): [phone] bpm Max HR Achieved: 99 bpm Target HR (85% APMHR): 143.304523 bpm % of APMHR: 58.58 Recovery HR: 83 bpm BP Resting BP: 162.0/68.0 mmHg Max BP: 169.0/70.0 mmHg Recovery BP: 162.0/72.0 mmHg ECG Clinical Exercise duration: 04:01 min Highest Stage Achieved: Stress ECG Conclusion Symptoms: SOA Arrhythmias/Ectopy: None ST-T Changes: <1.5mm ST Changes. Test Summary REST . . . . . . . Resting REST 01:50 . . 74 . 162/ 68 . . Stage 1 01:00 . . 98 . . . . Stage 2 01:00 . . 94 . . . . Stage 3 01:00 . . 93 . 161/ 72 . . Stage 4 01:00 . . 89 . 169/ 70 . . Stage 4 01:01 . . 90 . 169/ 70 . Stop exercise at 04:01 RECOVERY 01:00 . . 88 . 166/ 65 . . RECOVERY 02:00 . . 83 . 166/ 65 . . RECOVERY 02:16 . . 82 . 162/ 72 . . Electronically signed by : Carlos Alberto Guerrier MD 05/01/2022 09:52:03
--- NOTE | 2022-04-30 06:53 | NM_ITS ---
APPROVED REPORT Exam: Nuclear Stress Test Indication: short of breath..fatigue Patient Location: Outpatient Stress Tech: Nikki Ng ME Tech:Lo WarrenMARIA INES RT(R)(N) Ht: 5 ft 7 in Wt: 330 lbs Bra Size: 44d HR: 74 bpm BP: 162/68 mmHg BSA: 2.50 m2 TID: 1.20 BMI: 51.6 History: short of breath..fatigue Procedure: Patient received 0.4 mg of intravenous Lexiscan, resting heart rate 74 bpm, resting blood pressure 162/68 mmHg, with Lexiscan maximum heart rate achieved was 99 bpm which is Less than 85 % of the maximum predicted heart rate and blood pressure was 169/70 mmHg. With Lexiscan, patient denied any complaint of chest pain. The patient was not able to lay on her belly for prone images. Electrocardiogram Resting electrocardiogram shows sinus rhythm, with Lexiscan there is less than 1.[address] segment depression noted from the baseline EKG. The EKG portion of the Lexiscan is nondiagnostic. Cardiac Stress and Resting SPECT Images: Cardiac Stress and Resting SPECT images were obtained using technetium 99m Myoview 31.0 mCi stress and 10.90 mCi at rest. Gated SPECT analysis of segmental wall motion and calculation of the ejection fraction also done. Cardiac stress and rest SPECT may show mild fixed defect in the anterior wall with normal contractility in the gated SPECT is likely secondary to soft tissue attenuation, no reversible ischemia seen, computer derived ejection fraction of 65% with no regional wall motion abnormality, right ventricle is normal size and contractility. Conclusion: 1. The EKG portion of the Lexiscan is nondiagnostic. 2. No scintigraphic evidence of reversible ischemia seen, computer derived ejection fraction is 65% with no regional wall motion abnormality, right ventricle is normal size and contractility. 3. Likely normal Lexiscan Myoview study. Electronically signed by : Carlos Alberto Guerrier MD 05/01/2022 09:58:37
== END ==
PROVIDERS: PCP Emergency Medicine; Visit Provider Physician Assistant
DX: R06.00 Dyspnea, unspecified (principal)
CPT/HCPCS: 78452; 93017; A9502; J2785

== ENCOUNTER → 2022-07-03 11:37 | Outpatient (CLI) | payer OTHER, SELFPAY ==
[2022-07-03 12:06] LABS: Basophils # 0.1 K/mm3 (0-0.2); Basophils % 0.7 % (0.1-2.0); Eosinophils # 0.2 K/mm3 (0.0-0.4); Eosinophils % 2.1 % (0.1-12.0); Hematocrit 41.1 % (37.0-47.0); Hemoglobin 13.7 g/dL (12.2-16.2); Lymphocytes # 2.9 K/mm3 (0.7-4.5); Lymphocytes % 30.7 % (10-50); Mean Corpuscular HGB Conc 33.4 g/dL (31.8-35.4); Mean Corpuscular Hemoglobin 30.3 pg (27.0-31.2); Mean Corpuscular Volume 90.7 fl (81-99); Mean Platelet Volume 7.7 fl (7.4-10.4); Monocytes # 0.5 K/mm3 (0.1-1.0); Monocytes % 5.7 % (1.7-9.3); Neutrophils # 5.7 K/mm3 (1.8-7.8); Neutrophils % 60.8 % (37.0-80.0); Platelet Count 247 K/mm3 (142-424); Red Blood Count 4.53 M/mm3 (4.20-5.40); Red Cell Distribution Width 13.8 % (11.5-17.5); White Blood Count 9.4 K/mm3 (4.8-10.8)
[2022-07-03 12:27] LABS: Alanine Aminotransferase 25 U/L (12-78); Albumin Level 3.4 g/dl (3.5-5.0); Albumin/Globulin Ratio 1.2 (1.1-1.8); Alkaline Phosphatase 85 U/L (38-126); Anion Gap 14.2 mEq/L (5-15); Aspartate Amino Transferase 27 U/L (14-36); Bilirubin,Total 0.4 mg/dl (0.2-1.3); Blood Urea Nitrogen 18 mg/dl (7-17); Calcium 8.7 mg/dl (8.4-10.2); Carbon Dioxide 23 mmol/L (22.0-30.0); Chloride 103 mmol/L (98-107); Estimated Glomerular Filt Rate 76 ml/min (>60); GFR (African American) 92 ML/MIN (>60); Globulin 2.9 g/dL (1.3-3.2); Glucose 147 mg/dl (74-100); Potassium 4.2 mmoL/L (3.5-5.1); Sodium 136 mmol/L (136-145); Total Protein,Serum 6.3 g/dl (6.3-8.2)
[2022-07-03 12:38] LABS: Free T4 (Free Thyroxine) 1.48 ng/dl (0.78-2.19)
[2022-07-03 12:51] LABS: Thyroid Stimulating Hormone 5.18 uIU/mL (0.465-4.68)
[2022-07-03 13:27] LABS: Vitamin B12 481 pg/mL (239-931)
[2022-07-04 12:02] LABS: Triiodothyronine (T3) Free 3.6 pg/mL (2.0-4.4)
== END ==
PROVIDERS: PCP Emergency Medicine; Visit Provider Specialist
DX: R63.5 Abnormal weight gain (principal); R73.9 Hyperglycemia, unspecified; G47.10 Hypersomnia, unspecified
CPT/HCPCS: 36415; 80053; 82607; 82746; 84439; 84443; 84481; 85025

== ENCOUNTER → 2022-07-07 23:25 | Outpatient (CLI) | payer OTHER, SELFPAY ==
[2022-07-07 20:56] LABS: Hemoglobin A1C 6.3 % (4.0-6.0)
== END ==
PROVIDERS: PCP Physician Assistant; Visit Provider Physician Assistant
DX: R73.9 Hyperglycemia, unspecified (principal)
CPT/HCPCS: 83036

== ENCOUNTER → 2022-08-31 09:47 | Outpatient (CLI) | payer OTHER, SELFPAY ==
--- NOTE | 2022-08-31 10:34 | PC.NURSE ---
PFT and 6 Minute Walk test completed without incident. Albuterol 0.083% given via HHN, per protocol, Pt tolerated tx well.
== END ==
PROVIDERS: PCP Physician Assistant; Visit Provider Internal Medicine Pulmonary Disease
DX: R06.09 Other forms of dyspnea (principal)
CPT/HCPCS: 94060; 94618; 94726; 94729

== ENCOUNTER → 2022-09-09 12:18 | Outpatient (CLI) | payer OTHER, SELFPAY ==
[2022-09-09 13:06] LABS: Hemoglobin A1C 6.4 % (4.0-6.0)
[2022-09-09 13:51] LABS: Anion Gap 15.2 mEq/L (5-15); Blood Urea Nitrogen 20 mg/dl (7-17); Calcium 8.9 mg/dl (8.4-10.2); Carbon Dioxide 25 mmol/L (22.0-30.0); Chloride 102 mmol/L (98-107); Estimated Glomerular Filt Rate 75 ml/min (>60); GFR (African American) 91 ML/MIN (>60); Glucose 132 mg/dl (74-100); Potassium 5.2 mmoL/L (3.5-5.1); Sodium 137 mmol/L (136-145)
[2022-09-09 13:57] LABS: NT Pro Brain Natriuretic Pep. < 20.0 pg/mL (0-125)
== END ==
PROVIDERS: Physician Assistant; PCP Physician Assistant; Visit Provider Nurse Practitioner Family
DX: R06.00 Dyspnea, unspecified (principal); I10 Essential (primary) hypertension; R60.0 Localized edema; E78.2 Mixed hyperlipidemia
CPT/HCPCS: 36415; 80048; 83036; 83880

== ENCOUNTER → 2022-10-15 11:22 | Outpatient (CLI) | payer OTHER, SELFPAY ==
--- NOTE | 2022-10-15 11:39 | XR_ITS ---
FINAL REPORT CLINICAL HISTORY: Rt knee pain, swelling FINDINGS: Right knee Three views were obtained. There is no acute fracture or dislocation. There are mild degenerative changes. No joint effusion is identified. No soft tissue abnormality is identified. IMPRESSION: No acute process. Reviewed, Interpreted and Dictated by Osmel Moore III, MD Transcribed by Kimmy Kirby Authenticated and [facility]
--- NOTE | 2022-10-15 11:39 | XR_ITS ---
FINAL REPORT CLINICAL HISTORY: lt knee pain FINDINGS: Left knee Three views were obtained. There is no acute fracture or dislocation. There are mild and moderate degenerative changes. There is medial compartment narrowing. No joint effusion is identified. No soft tissue abnormality is identified. IMPRESSION: Degenerative changes as above. Reviewed, Interpreted and Dictated by Osmel Moore III, MD Transcribed by Kimmy Kirby Authenticated and [facility]
[2022-10-15 13:33] LABS: Anion Gap 8.8 mEq/L (5-15); Blood Urea Nitrogen 20 mg/dl (7-17); Calcium 8.7 mg/dl (8.4-10.2); Carbon Dioxide 27 mmol/L (22.0-30.0); Chloride 107 mmol/L (98-107); Estimated Glomerular Filt Rate 88 ml/min (>60); GFR (African American) 106 ML/MIN (>60); Glucose 109 mg/dl (74-100); Potassium 4.8 mmoL/L (3.5-5.1); Sodium 138 mmol/L (136-145)
[2022-10-15 13:53] LABS: Hemoglobin A1C 6.6 % (4.0-6.0)
== END ==
PROVIDERS: Specialist; PCP Physician Assistant; Referring Provider Orthopaedic Surgery; Visit Provider Nurse Practitioner Family
DX: R06.09 Other forms of dyspnea (principal); R73.9 Hyperglycemia, unspecified; I10 Essential (primary) hypertension; G47.33 Obstructive sleep apnea (adult) (pediatric); M25.561 Pain in right knee; M25.562 Pain in left knee
CPT/HCPCS: 36415; 73562; 80048; 83036

== ENCOUNTER → 2022-11-05 13:35 | Outpatient (CLI) | payer OTHER, SELFPAY ==
--- NOTE | 2022-11-05 13:35 | MR_ITS ---
FINAL REPORT CLINICAL HISTORY: Lt knee Pain. MEDIAL SIDED KNEE PAIN. KNEE INSTABILITY. NO INJURY OR TRAUMA COMPARISON: None FINDINGS: Multi planar MR imaging was performed of the right knee. The anterior and posterior cruciate ligaments are intact. The quadriceps and patellar tendons are intact. There is a large full-thickness tear of the posterior horn of the medial meniscus. The lateral meniscus is intact. The medial and lateral collateral ligaments appear intact. The medial and lateral retinacula appear intact. Osteochondral defect measuring 8 mm in diameter involving the articular surface of the medial femoral condyle adjacent to the tear in the posterior horn of the medial meniscus. There is another osteochondral defect involving the medial tibial plateau as well. There are mild changes of osteoarthritis in the medial and lateral compartments of the knee. No evidence of soft tissue inflammatory reaction. IMPRESSION: Large full-thickness tear posterior horn medial meniscus. Osteochondral defects of the medial femoral condyle and the medial tibial plateau as described. Reviewed, Interpreted and Dictated by Cecil Bess MD Transcribed by Susannah Ornelas Authenticated and [facility]
== END ==
PROVIDERS: PCP Physician Assistant; Visit Provider Orthopaedic Surgery
DX: M25.562 Pain in left knee (principal); M23.92 Unspecified internal derangement of left knee
CPT/HCPCS: 73721

== ENCOUNTER → 2022-11-20 09:54 | Outpatient (CLI) | payer OTHER, SELFPAY ==
--- NOTE | 2022-11-20 09:54 | FL_ITS ---
FINAL REPORT CLINICAL HISTORY: DIFFICULTY SWALLOWING FT 55 SEC DAP 2686.01 FINDINGS: BARIUM SWALLOW HISTORY: Dysphagia, feels like food getting stuck. TECHNIQUE: The patient ingested barium contrast. Spot and overhead films were performed. A total of 44 images were saved. FINDINGS: The esophagus is unremarkable. There is mild gastroesophageal reflux demonstrated to the distal esophagus. No mucosal defects are seen. There is very mild esophageal dysmotility. No changes of esophagitis are evident. 13 mm barium tablet passes easily through the esoophagus and into the stomach. FLUOROSCOPY TIME: 55 seconds Fluoro dose: 2686.01 DAP in uGym2 IMPRESSION: Very mild esophageal dysmotility. Minimal gastroesophageal reflux. Otherwise, unremarkable barium swallow. Reviewed, Interpreted and Dictated by Osmel Moore III, MD Transcribed by Jenae Torres PA-C Authenticated and [facility]
== END ==
PROVIDERS: PCP Physician Assistant; Visit Provider Nurse Practitioner
DX: R13.10 Dysphagia, unspecified (principal)
CPT/HCPCS: 74220

== ENCOUNTER 2022-11-28 20:10 | Emergency (ER) | payer OTHER, SELFPAY ==
[2022-11-28 20:11] VITALS: BP 173/75; PULSE 71; RESP 16; TEMP 36.4; O2SAT 100; BMI 53.2
[2022-11-28 20:23] VITALS: BP 173/75; PULSE 69; O2SAT 100
[2022-11-28 20:31] VITALS: BP 173/79; PULSE 67; O2SAT 99
[2022-11-28 21:01] VITALS: BP 171/82; PULSE 67; O2SAT 99
--- NOTE | 2022-11-28 21:07 | ECG_ITS ---
APPROVED REPORT Exam: Resting ECG HR:70 bpm ECG Measurements Heart Rate 70 AXES TN 186 P -23 QRSd 118 QRS -36 QT 398 T 61 QTc 419 Conclusion SINUS RHYTHM LEFT AXIS DEVIATION [QRS AXIS < -30] S1-S2-S3 PATTERN, CONSISTENT WITH PULMONARY DISEASE, RVH, OR NORMAL VARIANT MODERATE INTRAVENTRICULAR CONDUCTION DELAY [110+ ms QRS DURATION] ABNORMAL ECG UNCONFIRMED REPORT Electronically signed by : Doroteo Madrigal MD 11/30/2022 20:20:02
--- NOTE | 2022-11-28 21:12 | HMH.EDGENADL ---
Discharge Plan Disposition Patient Disposition: Home, Self-Care Condition: Good Prescriptions Prescriptions: New pantoprazole 40 mg tablet,delayed release (DR/EC) 40 mg PO DAILY Qty: 30 0RF No Action Emgality Pen 120 mg/mL pen injector 120 mg SQ QMONTH Qty: 1 2RF albuterol sulfate [Ventolin HFA] 90 mcg/actuation HFA aerosol inhaler 2 inh inhalation Q6H PRN (Reason: shortness of breath or wheezing) 90 Days Qty: 18 3RF ergocalciferol (vitamin D2) 1,250 mcg (50,000 unit) capsule 1,250 mcg PO WEEKLY Qty: 14 3RF (DME) blood-glucose meter [Vow To Be ChicTouch Ultra2 Meter] [facility] See Rx Instructions .ROUTE .MEDSUPPLY Qty: 1 Patient Comments: USE DIRECTED TO TEST ONCE IN THE MORNING BEFORE FIRST MEAL Rx Instructions: As directed pramipexole 0.25 mg tablet See Rx Instructions .ROUTE .COMPLEX Qty: 90 0RF Dose Instruction: TAKE 1 TABLET BY MOUTH EVERY NIGHT AT BEDTIME Rx Instructions: TAKE 1 TABLET BY MOUTH EVERY NIGHT AT BEDTIME rosuvastatin [Crestor] 20 mg tablet 20 mg PO DAILY Qty: 90 3RF spironolactone 25 mg tablet See Rx Instructions .ROUTE .COMPLEX Qty: 90 1RF Dose Instruction: TAKE 1 TABLET BY MOUTH DAILY Rx Instructions: TAKE 1 TABLET BY MOUTH DAILY (DME) blood-glucose meter Kit See Rx Instructions .ROUTE .MEDSUPPLY Qty: 1 0RF Rx Instructions: Once in am before first meal (DME) Blood Glucose Test Strip See Rx Instructions .Route Qty: 50 3RF Rx Instructions: one touch ultra one daily furosemide 40 mg tablet 40 mg PO BID PRN (Reason: Fluid) Qty: 60 5RF famotidine [Pepcid] 20 mg tablet 20 mg PO DAILY Qty: 90 3RF losartan 100 mg tablet 100 mg PO DAILY Qty: 30 3RF metformin 500 mg tablet extended release 24 hr See Rx Instructions .ROUTE .COMPLEX Qty: 30 1RF Dose Instruction: TAKE 1 TABLET BY MOUTH ONCE DAILY Rx Instructions: TAKE 1 TABLET BY MOUTH ONCE DAILY diclofenac sodium 75 mg tablet,delayed release (DR/EC) See Rx Instructions .ROUTE .COMPLEX Qty: 180 1RF Dose Instruction: TAKE 1 TABLET BY MOUTH TWICE DAILY FOR ARTHRITIS Rx Instructions: TAKE 1 TABLET BY MOUTH TWICE DAILY FOR ARTHRITIS budesonide-formoterol [Symbicort] 80-4.5 mcg/actuation HFA aerosol inhaler 2 inh inhalation BID PRN (Reason: shortness of breath or wheezing) 90 Days Qty: 10.2 2RF levothyroxine 100 mcg tablet See Rx Instructions .ROUTE .COMPLEX Qty: 90 0RF Dose Instruction: TAKE 1 TABLET BY MOUTH DAILY Rx Instructions: TAKE 1 TABLET BY MOUTH DAILY omeprazole 40 mg capsule,delayed release(DR/EC) See Rx Instructions .ROUTE .COMPLEX Qty: 90 3RF Dose Instruction: TAKE 1 CAPSULE BY MOUTH DAILY Rx Instructions: TAKE 1 CAPSULE BY MOUTH DAILY Vraylar 3 mg capsule 3 mg PO DAILY Qty: 30 1RF hydroxyzine pamoate [Vistaril] 25 mg capsule 25 mg PO TID PRN (Reason: for increased anxiety) Qty: 90 1RF venlafaxine [Effexor XR] 150 mg capsule,extended release 24hr 150 mg PO DAILY Qty: 30 2RF buspirone 10 mg tablet 20 mg PO BID Qty: 120 1RF Ozempic 0.25 mg or 0.5 mg (2 mg/3 mL) pen injector 0.5 mg SQ WEEKLY 30 Days Qty: 3.68 0RF Rx Instructions: for 4 weeks carvedilol [Coreg] 6.25 mg tablet 6.25 mg PO BID Qty: 60 3RF Rx Instructions: must administer with a meal/food estradiol 2 mg tablet See Rx Instructions .ROUTE .COMPLEX Qty: 90 0RF Dose Instruction: TAKE 1 TABLET BY MOUTH EVERY DAY FOR HORMONE REPLACEMENT OR FOR SUPPLEMENT Rx Instructions: TAKE 1 TABLET BY MOUTH EVERY DAY FOR HORMONE REPLACEMENT OR FOR SUPPLEMENT doxazosin 4 mg tablet See Rx Instructions .ROUTE .COMPLEX Qty: 90 0RF Dose Instruction: TAKE 1 TABLET BY MOUTH EVERY NIGHT AT BEDTIME Rx Instructions: TAKE 1 TABLET BY MOUTH EVERY NIGHT AT BEDTIME Referrals Follow up/Referrals: Chapis Bennett PA [Primary Care [facility]
[2022-11-28 21:27] LABS: Basophils # 0.1 K/mm3 (0-0.2); Basophils % 0.8 % (0.1-2.0); Eosinophils # 0.1 K/mm3 (0.0-0.4); Eosinophils % 1.1 % (0.1-12.0); Hematocrit 45.3 % (37.0-47.0); Hemoglobin 14.6 g/dL (12.2-16.2); Lymphocytes # 2.9 K/mm3 (0.7-4.5); Lymphocytes % 31.9 % (10-50); Mean Corpuscular HGB Conc 32.2 g/dL (31.8-35.4); Mean Corpuscular Hemoglobin 28.8 pg (27.0-31.2); Mean Corpuscular Volume 89.2 fl (81-99); Mean Platelet Volume 7.8 fl (7.4-10.4); Monocytes # 0.6 K/mm3 (0.1-1.0); Monocytes % 6.2 % (1.7-9.3); Neutrophils # 5.4 K/mm3 (1.8-7.8); Platelet Count 278 K/mm3 (142-424); Red Blood Count 5.08 M/mm3 (4.20-5.40); Red Cell Distribution Width 13.5 % (11.5-17.5)
[2022-11-28 21:33] LABS: Alanine Aminotransferase 30 U/L (12-78); Albumin Level 3.7 g/dl (3.5-5.0); Albumin/Globulin Ratio 1.1 (1.1-1.8); Alkaline Phosphatase 80 U/L (38-126); Anion Gap 12.3 mEq/L (5-15); Aspartate Amino Transferase 33 U/L (14-36); Bilirubin,Total 0.3 mg/dl (0.2-1.3); Blood Urea Nitrogen 22 mg/dl (7-17); Calcium 8.6 mg/dl (8.4-10.2); Carbon Dioxide 26 mmol/L (22.0-30.0); Chloride 105 mmol/L (98-107); Creatinine Clearance Estimated 68 mL/min (50-200); Estimated Glomerular Filt Rate 66 ml/min (>60); GFR (African American) 80 ML/MIN (>60); Globulin 3.4 g/dL (1.3-3.2); Glucose 102 mg/dl (74-100); Lipase 144 U/L (23-300); Potassium 4.3 mmoL/L (3.5-5.1); Sodium 139 mmol/L (136-145); Total Protein,Serum 7.1 g/dl (6.3-8.2)
[2022-11-28 21:47] LABS: Troponin I < 0.01 ng/ml (0.00-0.034)
[2022-11-28 22:41] VITALS: BP 177/86; PULSE 76; RESP 18; TEMP 36.5; O2SAT 98
== END 2022-11-28 22:41 | disposition home or self-care (01) ==
PROVIDERS: Emergency Provider Emergency Medicine; PCP Physician Assistant
DX: R10.13 Epigastric pain (principal); K21.9 Gastro-esophageal reflux disease without esophagitis; E11.9 Type 2 diabetes mellitus without complications; I10 Essential (primary) hypertension; E78.5 Hyperlipidemia, unspecified; E03.9 Hypothyroidism, unspecified; G47.33 Obstructive sleep apnea (adult) (pediatric); F31.81 Bipolar II disorder; J45.909 Unspecified asthma, uncomplicated; F41.9 Anxiety disorder, unspecified
CPT/HCPCS: 80053; 83690; 84484; 85025; 93005; 99285

== ENCOUNTER → 2022-12-18 15:29 | Outpatient (CLI) | payer OTHER, SELFPAY ==
[2022-12-18 15:38] LABS: Campylobacter Not Detected (NotDetected); Clostridium Difficile A/B, PCR Not Detected (NotDetected); Cryptosporidium Not Detected (NotDetected); Enteroaggregative E coli Not Detected (NotDetected); Enteropathogenic E coli Not Detected (NotDetected); Enterotoxigenic E coli Not Detected (NotDetected); Plesimonas Shigalloides, PCR Not Detected (NotDetected); Salmonella, PCR Not Detected (NotDetected); Shiga-like toxin E coli Not Detected (NotDetected); Shigella Enterovasive E coli Not Detected (NotDetected); Vibrio Cholerae Not Detected (NotDetected); Vibrio, PCR Not Detected (NotDetected); Yersinia Entercolitica, PCR Not Detected (NotDetected)
[2022-12-18 17:40] LABS: Ferritin 21.9 ng/ml (11.1-264)
[2022-12-20 12:09] LABS: H. pylori Breath Test Positive (Negative)
[2022-12-22 10:50] LABS: Adenovirus F 40/41, stool Not Detected (NotDetected); Astrovirus Not Detected (NotDetected); Cyclospora Cayetanesis Not Detected (NotDetected); Entamoeba histolytica Not Detected (NotDetected); Giardia lamblia Not Detected (NotDetected); Norovirus Not Detected (NotDetected); Rotavirus A Not Detected (NotDetected)
[2022-12-22 10:51] LABS: Sapovirus Not Detected (NotDetected)
== END ==
PROVIDERS: Specialist; PCP Physician Assistant; Visit Provider Nurse Practitioner Family
DX: R10.9 Unspecified abdominal pain (principal); R19.7 Diarrhea, unspecified; E83.10 Disorder of iron metabolism, unspecified; G25.81 Restless legs syndrome; G43.909 Migraine, unspecified, not intractable, without status migrainosus; G47.10 Hypersomnia, unspecified; G47.33 Obstructive sleep apnea (adult) (pediatric); E66.01 Morbid (severe) obesity due to excess calories; Z68.43 Body mass index [BMI] 50.0-59.9, adult
CPT/HCPCS: 36415; 82728; 83013; 87507

== ENCOUNTER 2022-12-18 21:55 | Emergency (ER) | payer OTHER, SELFPAY ==
[2022-12-18 23:24] VITALS: BP 0/0; PULSE 0; RESP 0; TEMP -17.7; TEMP 0; O2SAT 0
--- NOTE | 2022-12-19 01:07 | HMH.EDGENADL ---
Discharge Plan Disposition Patient Disposition: Left Without Being Seen Discharge ED Provider: Preston Cheung General Adult HPI General Stated complaint: abd pain, diarrhea History of Present Illness HPI narrative: Patient left without being seen. I was therefore unable to assess patient and form a clinical impression.Please note that first provider time was documented solely for the purposes of chart completion.Electronic medical record will not allow me to file a note for the purposes of documenting this encounter in the emergency department without first provider time but again I did not see patient. Related Data Home Medications Medication Instructions Recorded Confirmed blood-glucose meter (OneTouch #1 ea 11/04/22 12/18/22 Ultra2 Meter) pantoprazole 40 mg tablet,delayed 40 mg PO DAILY 12/08/22 12/18/22 release Previous Rx's Medication Instructions Recorded rosuvastatin 20 mg tablet (Crestor) 20 mg PO DAILY #90 tabs 04/16/22 spironolactone 25 mg tablet See Rx Instructions .Route 05/05/22 .COMPLEX #90 tabs ergocalciferol (vitamin D2) 1,250 1,250 mcg PO WEEKLY #14 caps 07/07/22 mcg (50,000 unit) capsule blood-glucose meter #1 ea 07/08/22 famotidine 20 mg tablet (Pepcid) 20 mg PO DAILY #90 tabs 07/13/22 furosemide 40 mg tablet 40 mg PO BID PRN Fluid #60 tabs 07/13/22 losartan 100 mg tablet 100 mg PO DAILY #30 tabs 09/08/22 albuterol sulfate 90 mcg/actuation 2 inh inhalation Q6H PRN shortness 09/28/22 aerosol inhaler (Ventolin HFA) of breath or wheezing 90 days #18 grams budesonide-formoterol HFA 80 2 inh inhalation BID PRN shortness 09/30/22 mcg-4.5 mcg/actuation aerosol of breath or wheezing 90 days inhaler (Symbicort) #10.2 grams diclofenac sodium 75 mg See Rx Instructions .Route 09/30/22 tablet,delayed release .COMPLEX #180 tabs metformin 500 mg tablet,extended See Rx Instructions .Route 09/30/22 release 24 hr .COMPLEX #30 tabs levothyroxine 100 mcg tablet See Rx Instructions .Route 10/13/22 .COMPLEX #90 tabs omeprazole 40 mg capsule,delayed See Rx Instructions .Route 10/22/22 release .COMPLEX #90 caps cariprazine 3 mg capsule (Vraylar) 3 mg PO DAILY #30 caps 10/27/22 hydroxyzine pamoate 25 mg capsule 25 mg PO TID PRN for increased 10/27/22 (Vistaril) anxiety #90 caps venlafaxine 150 mg 150 mg PO DAILY #30 caps 10/27/22 capsule,extended release 24 hr (Effexor XR) buspirone 10 mg tablet 20 mg PO BID #120 tabs 11/12/22 carvedilol 6.25 mg tablet (Coreg) 6.25 mg PO BID #60 tabs 11/23/22 doxazosin 4 mg tablet See Rx Instructions .Route 11/23/22 .COMPLEX #90 tabs estradiol 2 mg tablet See Rx Instructions .Route 11/23/22 .COMPLEX #90 tabs pramipexole 0.25 mg tablet See Rx Instructions .Route 11/30/22 .COMPLEX #90 tabs semaglutide 0.25 mg or 0.5 mg (2 0.5 mg (0.736 mL) SQ WEEKLY 1 12/01/22 mg/3 mL) subcutaneous pen injector month #3.68 mL (Ozempic) galcanezumab-gnlm 120 mg/mL 120 mg SQ QMONTH #1 mL 12/03/22 subcutaneous pen injector (Emgality Pen) blood sugar diagnostic (OneTouch #50 strips 12/04/22 Ultra Test strips) Allergies Allergy/AdvReac Type Severity Reaction Status Date / Time Penicillins [PENICILLINS] Allergy Mild Verified 12/18/22 14:20 [facility] Disclaimer: The information contained in this section may have been updated after the patient was seen, as this information can be updated by other users. Medical History Abnormal cardiovascular stress test Abnormal electrocardiography Abnormal PFTs (pulmonary function tests) Abnormal pulmonary function Anxiety Asthma Bipolar II disorder Depression DM2 (diabetes mellitus, type 2) Dysphagia Dyspnea Dyspnea Dyspnea on exertion Episodic migraine Overdue for Emgality, reported good response drastic reduction of severe headache, (at least 15 headaches a month previous to treatment with Emgality versus no more than 8 mild headaches a month) reluctant to try topiramate again
--- NOTE | 2022-12-19 18:59 | HMH.EDGENADL ---
Discharge Plan Disposition Patient Disposition: Left Without Being Seen Discharge ED Provider: Preston Cheung General Adult HPI General Stated complaint: abd pain, diarrhea Time Seen by Provider: 12/18/22 23:10 History of Present Illness HPI narrative: Patient left without being seen. I was therefore unable to assess patient and form a clinical impression. Please note that first provider time was documented solely for the purposes of chart completion. Electronic medical record will not allow me to file a note for the purposes of documenting this encounter in the emergency department without first provider time but again, I did not evaluate the patient. Related Data Home Medications Medication Instructions Recorded Confirmed blood-glucose meter (OneTouch #1 ea 11/04/22 12/18/22 Ultra2 Meter) pantoprazole 40 mg tablet,delayed 40 mg PO DAILY 12/08/22 12/18/22 release Previous Rx's Medication Instructions Recorded rosuvastatin 20 mg tablet (Crestor) 20 mg PO DAILY #90 tabs 04/16/22 spironolactone 25 mg tablet See Rx Instructions .Route 05/05/22 .COMPLEX #90 tabs ergocalciferol (vitamin D2) 1,250 1,250 mcg PO WEEKLY #14 caps 07/07/22 mcg (50,000 unit) capsule blood-glucose meter #1 ea 07/08/22 famotidine 20 mg tablet (Pepcid) 20 mg PO DAILY #90 tabs 07/13/22 furosemide 40 mg tablet 40 mg PO BID PRN Fluid #60 tabs 07/13/22 losartan 100 mg tablet 100 mg PO DAILY #30 tabs 09/08/22 albuterol sulfate 90 mcg/actuation 2 inh inhalation Q6H PRN shortness 09/28/22 aerosol inhaler (Ventolin HFA) of breath or wheezing 90 days #18 grams budesonide-formoterol HFA 80 2 inh inhalation BID PRN shortness 09/30/22 mcg-4.5 mcg/actuation aerosol of breath or wheezing 90 days inhaler (Symbicort) #10.2 grams diclofenac sodium 75 mg See Rx Instructions .Route 09/30/22 tablet,delayed release .COMPLEX #180 tabs metformin 500 mg tablet,extended See Rx Instructions .Route 09/30/22 release 24 hr .COMPLEX #30 tabs levothyroxine 100 mcg tablet See Rx Instructions .Route 10/13/22 .COMPLEX #90 tabs omeprazole 40 mg capsule,delayed See Rx Instructions .Route 10/22/22 release .COMPLEX #90 caps cariprazine 3 mg capsule (Vraylar) 3 mg PO DAILY #30 caps 10/27/22 hydroxyzine pamoate 25 mg capsule 25 mg PO TID PRN for increased 10/27/22 (Vistaril) anxiety #90 caps venlafaxine 150 mg 150 mg PO DAILY #30 caps 10/27/22 capsule,extended release 24 hr (Effexor XR) buspirone 10 mg tablet 20 mg PO BID #120 tabs 11/12/22 carvedilol 6.25 mg tablet (Coreg) 6.25 mg PO BID #60 tabs 11/23/22 doxazosin 4 mg tablet See Rx Instructions .Route 11/23/22 .COMPLEX #90 tabs estradiol 2 mg tablet See Rx Instructions .Route 11/23/22 .COMPLEX #90 tabs pramipexole 0.25 mg tablet See Rx Instructions .Route 11/30/22 .COMPLEX #90 tabs semaglutide 0.25 mg or 0.5 mg (2 0.5 mg (0.736 mL) SQ WEEKLY 1 12/01/22 mg/3 mL) subcutaneous pen injector month #3.68 mL (Ozempic) galcanezumab-gnlm 120 mg/mL 120 mg SQ QMONTH #1 mL 12/03/22 subcutaneous pen injector (Emgality Pen) blood sugar diagnostic (OneTouch #50 strips 12/04/22 Ultra Test strips) Allergies Allergy/AdvReac Type Severity Reaction Status Date / Time Penicillins [PENICILLINS] Allergy Mild Verified 12/18/22 14:20 [facility] Disclaimer: The information contained in this section may have been updated after the patient was seen, as this information can be updated by other users. Medical History Abnormal cardiovascular stress test Abnormal electrocardiography Abnormal PFTs (pulmonary function tests) Abnormal pulmonary function Anxiety Asthma Bipolar II disorder Depression DM2 (diabetes mellitus, type 2) Dysphagia Dyspnea Dyspnea Dyspnea on exertion Episodic migraine Overdue for Emgality, reported good response drastic reduction of severe headache, (at least 15 headaches a month previous to treatment with Emgality versus no more than 8 mild he
== END 2022-12-18 23:26 | disposition left against medical advice (07) ==
PROVIDERS: Emergency Provider Emergency Medicine; PCP Physician Assistant
DX: Z53.21 Procedure and treatment not carried out due to patient leaving prior to being seen by health care provider (principal)
CPT/HCPCS: 99211

== ENCOUNTER → 2022-12-29 14:45 | Outpatient (CLI) | payer OTHER, SELFPAY ==
[2022-12-29 15:15] VITALS: PULSE 63
== END ==
PROVIDERS: PCP Physician Assistant; Visit Provider Internal Medicine Pulmonary Disease
DX: J44.9 Chronic obstructive pulmonary disease, unspecified (principal)
CPT/HCPCS: 94060; 94640

== ENCOUNTER 2023-06-28 18:11 | Emergency (ER) | payer MEDICARE, SELFPAY ==
--- NOTE | 2023-06-28 19:01 | ED_ITS ---
Discharge Plan Disposition Patient Disposition: Home, Self-Care Condition: Good Prescriptions Prescriptions: New phenazopyridine [Pyridium] 200 mg tablet 200 mg PO Q8H 2 Days Qty: 6 0RF sulfamethoxazole-trimethoprim [Bactrim DS] 800-160 mg Tablet 1 tab PO BID Qty: 14 0RF No Action venlafaxine [Effexor XR] 150 mg capsule,extended release 24hr 150 mg PO DAILY Qty: 30 2RF albuterol sulfate [Ventolin HFA] 90 mcg/actuation HFA aerosol inhaler 2 inh inhalation Q6H PRN (Reason: shortness of breath or wheezing) 90 Days Qty: 18 3RF ergocalciferol (vitamin D2) 1,250 mcg (50,000 unit) capsule 1,250 mcg PO WEEKLY Qty: 14 3RF (DME) blood-glucose meter [[employer] Ultra2 Meter] [facility] See Rx Instructions .ROUTE .MEDSUPPLY Qty: 1 Patient Comments: USE DIRECTED TO TEST ONCE IN THE MORNING BEFORE FIRST MEAL Rx Instructions: As directed Ozempic 2 mg/dose (8 mg/3 mL) pen injector 2 mg SQ WEEKLY Qty: 3 2RF lisdexamfetamine [Vyvanse] 30 mg capsule 30 mg PO DAILY Qty: 30 0RF rosuvastatin [Crestor] 20 mg tablet 20 mg PO DAILY Qty: 90 3RF spironolactone 25 mg tablet See Rx Instructions .ROUTE .COMPLEX Qty: 90 1RF Dose Instruction: TAKE 1 TABLET BY MOUTH DAILY Rx Instructions: TAKE 1 TABLET BY MOUTH DAILY (DME) blood-glucose meter Kit See Rx Instructions .ROUTE .MEDSUPPLY Qty: 1 0RF Rx Instructions: Once in am before first meal famotidine [Pepcid] 20 mg tablet 20 mg PO DAILY Qty: 90 3RF losartan 100 mg tablet 100 mg PO DAILY Qty: 30 3RF budesonide-formoterol [Symbicort] 80-4.5 mcg/actuation HFA aerosol inhaler 2 inh inhalation BID PRN (Reason: shortness of breath or wheezing) 90 Days Qty: 10.2 2RF omeprazole 40 mg capsule,delayed release(DR/EC) See Rx Instructions .ROUTE .COMPLEX Qty: 90 3RF Dose Instruction: TAKE 1 CAPSULE BY MOUTH DAILY Rx Instructions: TAKE 1 CAPSULE BY MOUTH DAILY doxazosin 4 mg tablet See Rx Instructions .ROUTE .COMPLEX Qty: 90 0RF Dose Instruction: TAKE 1 TABLET BY MOUTH EVERY NIGHT AT BEDTIME Rx Instructions: TAKE 1 TABLET BY MOUTH EVERY NIGHT AT BEDTIME pramipexole 0.25 mg tablet See Rx Instructions .ROUTE .COMPLEX Qty: 90 0RF Dose Instruction: TAKE 1 TABLET BY MOUTH EVERY NIGHT AT BEDTIME Rx Instructions: TAKE 1 TABLET BY MOUTH EVERY NIGHT AT BEDTIME (DME) OneTouch Ultra Test Strip See Rx Instructions .ROUTE .COMPLEX Qty: 50 0RF Dose Instruction: USE DIRECTED TO TEST BLOOD SUGAR ONCE DAILY Rx Instructions: USE DIRECTED TO TEST BLOOD SUGAR ONCE DAILY furosemide 40 mg tablet 40 mg PO BID PRN (Reason: Fluid) Qty: 60 5RF levothyroxine 100 mcg tablet See Rx Instructions .ROUTE .COMPLEX Qty: 90 0RF Dose Instruction: TAKE 1 TABLET BY MOUTH DAILY Rx Instructions: TAKE 1 TABLET BY MOUTH DAILY Emgality Pen 120 mg/mL pen injector 120 mg SQ QMONTH Qty: 1 5RF diclofenac sodium 75 mg tablet,delayed release (DR/EC) See Rx Instructions .ROUTE .COMPLEX Qty: 180 0RF Dose Instruction: TAKE 1 TABLET BY MOUTH TWICE DAILY FOR ARTHRITIS Rx Instructions: TAKE 1 TABLET BY MOUTH TWICE DAILY FOR ARTHRITIS carvedilol [Coreg] 25 mg tablet 25 mg PO BID Qty: 60 2RF Rx Instructions: give with food (meal/snack) buspirone 10 mg tablet See Rx Instructions .ROUTE .COMPLEX Qty: 120 0RF Dose Instruction: TAKE 2 TABLETS BY MOUTH TWICE DAILY Rx Instructions: TAKE 2 TABLETS BY MOUTH TWICE DAILY hydroxyzine pamoate 25 mg capsule See Rx Instructions .ROUTE .COMPLEX Qty: 90 0RF Dose Instruction: TAKE 1 CAPSULE BY MOUTH THREE TIMES DAILY NEEDED FOR INCREASED ANXIETY Rx Instructions: TAKE 1 CAPSULE BY MOUTH THREE TIMES DAILY NEEDED FOR INCREASED ANXIETY metformin 500 mg tablet extended release 24 hr See Rx Instructions .ROUTE .COMPLEX Qty: 90 0RF Dose Instruction: TAKE 1 TABLET BY MOUTH EVERY DAY Rx Instructions: TAKE 1 TABLET BY MOUTH EVERY DAY estradiol 2 mg tablet See Rx Instructions .ROUTE .COMPLEX Qty: 90 0RF Dose Instruction: TAKE 1 TABLET BY MOUTH EVERY DAY FOR HORMONE REPLACEMENT OR FOR SUPPLEMENT Rx Instructions: TAKE 1 TABLET BY MOUTH EVERY DAY FOR HORMONE REPLACEMENT OR FOR SUPPLEMENT Vraylar 3 mg capsule 3 mg PO DAILY Qty: 30 1RF Referrals Follow up/Referrals: Chapis Bennett PA [Primary Care Provider] - See instructions Activity Restrictions/Add. Instructions Additional Instructions/Restrictions: Drink plenty of fluids. Take tylenol for pain. Take the medications as directed. Follow up with your regular doctor. GO TO THE ER FOR ANY WORSENING SYMPTOMS Clinical Impressions Clinical Impression: Interstitial cystitis Instructions Patient Instructions: DI for Interstitial Cystitis, Phenazopyridine Discharge ED Provider: Tony Naqvi [facility] HPI General Stated complaint: Stomach Pain Time Seen by Provider: 06/28/23 19:01 History of Present Illness Provider Complaint: She states that since yesterday she has had dysuria, urinary frequency, and lower abdominal discomfort. She denies any back pain. She denies any fever/chills/diarrhea/constipation. She states that she has a history of interstitial cystitis and this feels exactly like her symptoms with that when she has a flare up of it. Related Data Home Medications Medication Instructions Recorded Confirmed blood-glucose meter ([employer].meTouch #1 ea 11/04/22 05/13/23 Ultra2 Meter) Previous Rx's Medication Instructions Recorded rosuvastatin 20 mg tablet (Crestor) 20 mg PO DAILY #90 tabs 04/16/22 spironolactone 25 mg tablet See Rx Instructions .Route 05/05/22 .COMPLEX #90 tabs ergocalciferol (vitamin D2) 1,250 1,250 mcg PO WEEKLY #14 caps 07/07/22 mcg (50,000 unit) capsule blood-glucose meter #1 ea 07/08/22 famotidine 20 mg tablet (Pepcid) 20 mg PO DAILY #90 tabs 07/13/22 losartan 100 mg tablet 100 mg PO DAILY #30 tabs 09/08/22 albuterol sulfate 90 mcg/actuation 2 inh inhalation Q6H PRN shortness 09/28/22 aerosol inhaler (Ventolin HFA) of breath or wheezing 90 days #18 grams budesonide-formoterol HFA 80 2 inh inhalation BID PRN shortness 09/30/22 mcg-4.5 mcg/actuation aerosol of breath or wheezing 90 days inhaler (Symbicort) #10.2 grams omeprazole 40 mg capsule,delayed See Rx Instructions .Route 10/22/22 release .COMPLEX #90 caps doxazosin 4 mg tablet See Rx Instructions .Route 11/23/22 .COMPLEX #90 tabs pramipexole 0.25 mg tablet See Rx Instructions .Route 11/30/22 .COMPLEX #90 tabs blood sugar diagnostic (OneTouch #50 strips 12/04/22 Ultra Test strips) furosemide 40 mg tablet 40 mg PO BID PRN Fluid #60 tabs 12/30/22 levothyroxine 100 mcg tablet See Rx Instructions .Route 01/19/23 .COMPLEX #90 tabs venlafaxine 150 mg 150 mg PO DAILY #30 caps 02/10/23 capsule,extended release 24 hr (Effexor XR) semaglutide 2 mg/dose (8 mg/3 mL) 2 mg (0.75 mL) SQ WEEKLY #3 mL 02/15/23 subcutaneous pen injector (Ozempic) galcanezumab-gnlm 120 mg/mL 120 mg SQ QMONTH #1 mL 03/01/23 subcutaneous pen injector ([employer]ality Pen) lisdexamfetamine 30 mg capsule 30 mg PO DAILY #30 caps 04/15/23 (Vyvanse) diclofenac sodium 75 mg See Rx Instructions .Route 05/03/23 tablet,delayed release .COMPLEX #180 tabs carvedilol 25 mg tablet (Coreg) 25 mg PO BID #60 tabs 05/19/23 buspirone 10 mg tablet See Rx Instructions .Route 06/07/23 .COMPLEX #120 tabs hydroxyzine pamoate 25 mg capsule See Rx Instructions .Route 06/07/23 .COMPLEX #90 caps metformin 500 mg tablet,extended See Rx Instructions .Route 06/08/23 release 24 hr .COMPLEX #90 tabs cariprazine 3 mg capsule (Vraylar) 3 mg PO DAILY #30 caps 06/15/23 estradiol 2 mg tablet See Rx Instructions .Route 06/15/23 .COMPLEX #90 tabs phenazopyridine 200 mg tablet 200 mg PO Q8H 2 days #6 tabs 06/28/23 (Pyridium) sulfamethoxazole 800 1 tab PO BID #14 tabs 06/28/23 mg-trimethoprim 160 mg tablet (Bactrim DS) Allergies Allergy/AdvReac Type Severity Reaction Status Date / Time Penicillins [PENICILLINS] Allergy Mild Verified 06/28/23 19:23 [facility] Disclaimer: The information contained in this section may have been updated after the patient was seen, as this information can be updated by other users. 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 Hypersomnia Dyspnea Episodic migraine Dyspnea Bipolar II disorder Depression Anxiety History of gastroesophageal reflux (GERD) Migraine Hypertension Abnormal electrocardiography Abnormal cardiovascular stress test Obesity Ingrowing Toenail Hyperlipidemia Surgical History History of arthroscopy of both shoulders History of cholecystectomy History of hysterectomy History of section Family History Other Cancer Coronary artery disease Diabetes Heart attack Hypertension Social History Smoking Status: Never smoker second hand exposure: Yes alcohol intake: never substance use type: denies use current occupational status: other Travel in the last 8 weeks: None household members: other housing: house number of children: 1 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 current occupational exposures/hazards: No caffeine: Yes ROS Obtained: Yes All systems reviewed & no additional complaints except as documented Constitutional Constitutional: Reports system reviewed and no additional complaints, except as documented, Denies chills and Denies fever(s) Eyes Eyes: Denies eye discharge ENT Ears, Nose, Mouth, and Throat: Denies dysphagia, Denies sore throat and Denies throat swelling Cardiovascular Cardiovascular: Denies chest pain and Denies dyspnea Respiratory Respiratory: Denies chest congestion, Denies cough and Denies dyspnea Gastrointestinal Gastrointestingal: Denies abdominal pain, constipation, diarrhea, dysphagia, nausea or vomiting Genitourinary Female Genitourinary: Reports as per HPI, Reports dysuria, Reports urinary frequency, Denies urinary incontinence, Reports urinary hesitancy and Reports urinary urgency Musculoskeletal Musculoskeletal: Denies arthralgias and Reports back pain Integumentary/Breasts Skin/Breast: Denies rash Neurologic Neurologic: Denies paresthesias Allergic/Immunologic Allergic/Immunologic: Denies throat swelling Physical Exam General General appearance: alert and in no apparent distress Head Head exam: atraumatic and normocephalic Eye Eye exam: Present normal appearance, PERRL and EOMI ENT ENT exam: Present normal exam, mucous membranes moist, TM's normal bilaterally and normal external ear exam Neck Neck exam: Present normal inspection, full ROM and trachea midline; Absent tenderness, meningismus or lymphadenopathy Chest Chest inspection: Present normal inspection and symmetric chest wall rise; Absent tenderness Respiratory Respiratory exam: Present normal lung sounds bilaterally; Absent respiratory distress, wheezes or stridor Cardiovascular Cardiovascular exam: Present regular rate, normal rhythm and normal heart sounds Abdominal Exam Abdominal exam: Present soft and normal bowel sounds; Absent distention, tenderness, guarding, rebound, rigidity, incision, psoas sign, obturator sign, heel tap sign, Rivera's sign, Rovsing's sign or tenderness at McBurney's Point Extremities Exam Extremities exam: Present normal inspection, full ROM and normal capillary refill; Absent tenderness, edema, joint swelling, calf tenderness or cyanosis Back Exam Back exam: Present normal inspection and full ROM; Absent tenderness, CVA tender ness (R) or CVA tenderness (L) Neurological Exam Neurological exam: Present alert, oriented X3 and normal gait Psychiatric Psychiatric exam: Present normal affect and normal mood Skin Skin exam: Present warm, dry, intact and normal color Lymphatic Lymphatic Findings: no adenopathy Medical Decision Making Medical Records Medical records reviewed: No I reviewed the patient's medical records. [place] Inquiry Pt receiving controlled substance: No Lab Data Lab results reviewed: Yes I reviewed the patient's lab results.
[2023-06-28 19:05] VITALS: PULSE 65; RESP 18; TEMP 36.8; O2SAT 98; BMI 51.6
[2023-06-28 19:31] LABS: Apearance,Urine Cloudy (Clear); Bilirubin,Urine Negative (Negative); Blood, Urine Negative (Negative); Color,Urine Dark Yellow (Yellow); Glucose,Urine (UA) Negative (Negative); Ketones,Urine Negative (Negative); PH,Urine 5.5 (5.0-8.5); Protein,Urine Negative (Negative); UTC Leukocyte Esterase,Urine Negative (Negative); UTC Nitrate,Urine Negative (Negative); Urobilinogen,Urine 0.2 EU/dl (0.2)
[2023-06-28 19:55] VITALS: BP 0/0; PULSE 65; RESP 18; TEMP 36.8; O2SAT 98
== END 2023-06-28 19:55 | disposition home or self-care (01) ==
PROVIDERS: Emergency Provider Nurse Practitioner Family; PCP Physician Assistant
DX: N30.10 Interstitial cystitis (chronic) without hematuria (principal); R10.30 Lower abdominal pain, unspecified; R30.0 Dysuria; K21.9 Gastro-esophageal reflux disease without esophagitis; E11.9 Type 2 diabetes mellitus without complications; E78.5 Hyperlipidemia, unspecified; I10 Essential (primary) hypertension; Z79.84 Long term (current) use of oral hypoglycemic drugs
CPT/HCPCS: 81003; 99212; 99214; G0463

== ENCOUNTER 2023-11-18 14:53 | Outpatient (CLI) | payer MEDICARE, SELFPAY ==
[2023-11-18 17:28] LABS: Basophils # 0.1 K/mm3 (0-0.2); Basophils % 0.8 % (0.1-2.0); Eosinophils # 0.2 K/mm3 (0.0-0.4); Eosinophils % 1.9 % (0.1-12.0); Hematocrit 47.3 % (37.0-47.0); Hemoglobin 14.7 g/dL (12.2-16.2); Lymphocytes # 2.4 K/mm3 (0.7-4.5); Lymphocytes % 27.7 % (10-50); Mean Corpuscular HGB Conc 31.2 g/dL (31.8-35.4); Mean Corpuscular Hemoglobin 30.6 pg (27.0-31.2); Mean Platelet Volume 10.1 fl (7.4-10.4); Monocytes # 0.5 K/mm3 (0.1-1.0); Monocytes % 5.6 % (1.7-9.3); Neutrophils # 5.5 K/mm3 (1.8-7.8); Neutrophils % 63.9 % (37.0-80.0); Platelet Count 290 K/mm3 (142-424); Red Blood Count 4.82 M/mm3 (4.20-5.40); White Blood Count 8.7 K/mm3 (4.8-10.8)
[2023-11-18 17:44] LABS: Alanine Aminotransferase 19 U/L (12-78); Albumin Level 3.4 g/dl (3.5-5.0); Albumin/Globulin Ratio 1.1 (1.1-1.8); Alkaline Phosphatase 79 U/L (38-126); Anion Gap 10.4 mEq/L (5-15); Aspartate Amino Transferase 25 U/L (14-36); Bilirubin,Total 0.5 mg/dl (0.2-1.3); Blood Urea Nitrogen 11 mg/dl (7-17); Calcium 8.9 mg/dl (8.4-10.2); Carbon Dioxide 23 mmol/L (22.0-30.0); Chloride 107 mmol/L (98-107); Chol/HDL Ratio 4.9 (1-3.5); Cholesterol 221 mg/dl (140-200); Estimated Glomerular Filt Rate 88 ml/min (>60); GFR (African American) 106 ML/MIN (>60); Globulin 3.1 g/dL (1.3-3.2); Glucose 159 mg/dl (74-100); HDL Cholesterol 45 mg/dl (40-60); Potassium 4.4 mmoL/L (3.5-5.1); Sodium 136 mmol/L (136-145); Total Protein,Serum 6.5 g/dl (6.3-8.2); Triglycerides 273 mg/dl (30-150); VLDL Cholesterol 55 mg/dL (0-40)
[2023-11-18 17:53] LABS: Hemoglobin A1C 6.1 % (4.0-6.0)
[2023-11-18 17:54] LABS: Direct LDL Cholesterol 141.54 mg/dL (100-129)
[2023-11-18 18:02] LABS: 25-OH Vitamin D, Total 40.9 ng/mL (30-100)
[2023-11-18 18:15] LABS: Thyroid Stimulating Hormone 6.12 uIU/mL (0.465-4.68)
[2023-11-18 18:31] LABS: Iron 123 ug/dL (37-170)
[2023-11-18 18:33] LABS: Vitamin B12 466 pg/mL (239-931)
[2023-11-18 18:41] LABS: Total Iron Binding Capacity 348 ug/dL (265-497)
[2023-11-18 19:07] LABS: Ferritin 30.1 ng/ml (11.1-264)
== END 2023-11-18 23:59 | disposition home or self-care (01) ==
LOC: LAB.DROPOF 11-19 14:54
PROVIDERS: PCP Physician Assistant; Visit Provider Physician Assistant
DX: E83.10 Disorder of iron metabolism, unspecified; E11.9 Type 2 diabetes mellitus without complications; E03.9 Hypothyroidism, unspecified; E55.9 Vitamin D deficiency, unspecified; R53.83 Other fatigue; E78.5 Hyperlipidemia, unspecified
CPT/HCPCS: 80053; 80061; 82306; 82607; 82728; 83036; 83540; 83550; 84443; 85025

== ENCOUNTER 2024-03-09 16:00 | Outpatient (CLI) | payer MEDICARE, MEDICAID, SELFPAY ==
[2024-03-09 19:19] LABS: Alanine Aminotransferase 28 U/L (12-78); Albumin Level 3.4 g/dl (3.5-5.0); Albumin/Globulin Ratio 1.3 (1.1-1.8); Alkaline Phosphatase 68 U/L (38-126); Aspartate Amino Transferase 31 U/L (14-36); Bilirubin,Total 0.3 mg/dl (0.2-1.3); Blood Urea Nitrogen 19 mg/dl (7-17); Calcium 9.3 mg/dl (8.4-10.2); Carbon Dioxide 24 mmol/L (22.0-30.0); Chloride 107 mmol/L (98-107); Chol/HDL Ratio 3.5 (1-3.5); Cholesterol 159 mg/dl (140-200); Estimated Glomerular Filt Rate 65 ml/min (>60); GFR (African American) 79 ML/MIN (>60); Globulin 2.6 g/dL (1.3-3.2); Glucose 150 mg/dl (74-100); HDL Cholesterol 46 mg/dl (40-60); Sodium 139 mmol/L (136-145); Triglycerides 283 mg/dl (30-150); VLDL Cholesterol 57 mg/dL (0-40)
[2024-03-09 19:49] LABS: Thyroid Stimulating Hormone 4.21 uIU/mL (0.465-4.68)
[2024-03-09 20:21] LABS: Anion Gap 12.1 mEq/L (5-15); Potassium 4.1 mmoL/L (3.5-5.1)
[2024-03-09 21:36] LABS: HIV Combo NEGATIVE (Negative)
[2024-03-11 07:08] LABS: HCV Ab Non Reactive (Non Reactive)
== END 2024-03-09 23:59 | disposition home or self-care (01) ==
LOC: LAB.DROPOF 03-13 09:53
PROVIDERS: PCP Family Medicine; Visit Provider Family Medicine
DX: Z11.59 Encounter for screening for other viral diseases (principal); I15.0 Renovascular hypertension; E03.9 Hypothyroidism, unspecified; E78.5 Hyperlipidemia, unspecified
CPT/HCPCS: 80053; 80061; 84443; 86803; 87389

== ENCOUNTER 2024-03-24 15:23 | Emergency (ER) | payer MEDICARE, MEDICAID, SELFPAY ==
[2024-03-24 15:35] VITALS: BP 187/80; PULSE 88; RESP 20; TEMP 36.6; O2SAT 97; BMI 51.6
--- NOTE | 2024-03-24 15:38 | XR_ITS ---
FINAL REPORT CLINICAL HISTORY: fall, rt hip pain FINDINGS: RIGHT HIP Two views of the right hip demonstrate no acute fracture or dislocation. The femoral heads have a normal smooth contour. There is mild hip joint space narrowing. Hypertrophic changes are seen at the acetabular margin. No soft tissue abnormality is seen. IMPRESSION: No acute bony abnormality. Reviewed, Interpreted and Dictated by Cecil Bess MD Transcribed by Teresa Pelaez Authenticated and [facility]
--- NOTE | 2024-03-24 15:43 | ED_ITS ---
Discharge Plan Disposition Patient Disposition: Home, Self-Care Condition: Good Prescriptions Prescriptions: New ibuprofen [IBU] 800 mg tablet 800 mg PO Q8HP PRN (Reason: Moderate Pain) Qty: 30 0RF No Action losartan 100 mg tablet 100 mg PO DAILY Qty: 90 3RF metformin 500 mg tablet extended release 24 hr See Rx Instructions .ROUTE .COMPLEX Qty: 90 2RF Dose Instruction: TAKE 1 TABLET BY MOUTH EVERY DAY Rx Instructions: TAKE 1 TABLET BY MOUTH EVERY DAY omeprazole 40 mg capsule,delayed release(DR/EC) See Rx Instructions .ROUTE .COMPLEX Qty: 90 1RF Dose Instruction: TAKE 1 CAPSULE BY MOUTH DAILY Rx Instructions: TAKE 1 CAPSULE BY MOUTH DAILY (DME) blood-glucose meter [OneTouch Ultra2 Meter] [facility] [place] See Rx Instructions .ROUTE .MEDSUPPLY Qty: 1 Patient Comments: USE DIRECTED TO TEST ONCE IN THE MORNING BEFORE FIRST MEAL Rx Instructions: As directed Vraylar 3 mg capsule 3 mg PO DAILY Qty: 30 2RF (DME) blood-glucose meter Kit See Rx Instructions .ROUTE .MEDSUPPLY Qty: 1 0RF Rx Instructions: Once in am before first meal (DME) OneTouch Ultra Test Strip See Rx Instructions .ROUTE .COMPLEX Qty: 50 0RF Dose Instruction: USE DIRECTED TO TEST BLOOD SUGAR ONCE DAILY Rx Instructions: USE DIRECTED TO TEST BLOOD SUGAR ONCE DAILY venlafaxine 150 mg capsule,extended release 24hr See Rx Instructions .ROUTE .COMPLEX Qty: 30 2RF Dose Instruction: TAKE 1 CAPSULE BY MOUTH ONCE DAILY Rx Instructions: TAKE 1 CAPSULE BY MOUTH ONCE DAILY furosemide 40 mg tablet 40 mg PO BID Patient Comments: TAKE 1 TABLET BY MOUTH TWICE DAILY NEEDED FOR FLUID RETENTION carvedilol 12.5 mg tablet 12.5 mg PO DAILY Patient Comments: TAKE 1 TABLET BY MOUTH ONCE DAILY WITH FOOD/MEAL levothyroxine 100 mcg tablet 100 mcg PO DAILY Patient Comments: TAKE 1 TABLET BY MOUTH DAILY buspirone 10 mg tablet 10 mg PO DAILY pramipexole 0.25 mg tablet 0.25 mg PO HS Patient Comments: TAKE 1 TABLET BY MOUTH EVERY NIGHT AT BEDTIME doxazosin 4 mg tablet 4 mg PO HS Patient Comments: TAKE 1 TABLET BY MOUTH EVERY NIGHT AT BEDTIME estradiol 2 mg tablet 2 mg PO DAILY Patient Comments: TAKE 1 TABLET BY MOUTH EVERY DAY FOR HORMONE REPLACEMENT OR FOR SUPPLEMENT hydroxyzine pamoate 25 mg capsule 25 mg PO DAILY rosuvastatin 40 mg tablet 40 mg PO HS Patient Comments: TAKE 1 TABLET BY MOUTH DAILY Referrals Follow up/Referrals: Eliu Parks APRN [Primary Care Provider] - See instructions Leroy Solo DO [Staff Physician] - See instructions Activity Restrictions/Add. Instructions Additional Instructions/Restrictions: Rest the extremity. Take ibuprofen for pain. I sent in a prescription to your pharmacy. Follow up with Dr. Solo (orthopedics). I put in a referral but you need to call his office and schedule an appointment. His office phone number will be on this paperwork. Follow up with your regular doctor. GO TO THE ER FOR ANY WORSENING SYMPTOMS Clinical Impressions Clinical Impression: Contusion of left hip, Left hip pain, Fall Instructions Patient Instructions: Ibuprofen, Ketorolac Injection, DI for Hip Pain Print Language Print Language: Sammarinese Discharge ED Provider: Tony Naqvi [facility] General Stated complaint: Right hip injury a few days ago Mode of Arrival: Ambulatory Source of Information: Patient Limitations: No Limitations Time Seen by Provider: 03/24/24 15:42 Description of Symptoms (Recalled from Triage Doc. by RN): PATIENT C/O RIGHT HIP PAIN AFTER FALLING ON ICE Wednesday HEENT Symptoms (Recalled from RN notes): No Resp Symptoms (Recalled from RN notes): No Skin Symptoms (Recalled from RN notes): No MS Symptoms (Recalled from RN notes): Yes Functional Status (Recalled from RN notes): WNL History of Present Illness Provider Complaint: She states that 4 days ago she slipped on ice and fell off her front porch. She fell approximately 2 feet and came down directly on her right hip in the grass in her yard. Since then she has had right hip pain and bruising. Her pain is worse when she is walking when she is bearing weight on the affected leg or walking. She denies any other injury or complaints. She denies any head injury or neck pain. Related Data Home Medications ?Medication ?Instructions ?Recorded ?Confirmed blood-glucose meter (OneTouch #1 ea 11/04/22 03/24/24 Ultra2 Meter) buspirone 10 mg tablet 10 mg PO DAILY 03/24/24 03/24/24 carvedilol 12.5 mg tablet 12.5 mg PO DAILY 03/24/24 03/24/24 doxazosin 4 mg tablet 4 mg PO HS 03/24/24 03/24/24 estradiol 2 mg tablet 2 mg PO DAILY 03/24/24 03/24/24 furosemide 40 mg tablet 40 mg PO BID 03/24/24 03/24/24 hydroxyzine pamoate 25 mg capsule 25 mg PO DAILY 03/24/24 03/24/24 levothyroxine 100 mcg tablet 100 mcg PO DAILY 03/24/24 03/24/24 pramipexole 0.25 mg tablet 0.25 mg PO HS 03/24/24 03/24/24 rosuvastatin 40 mg tablet 40 mg PO HS 03/24/24 03/24/24 Previous Rx's ?Medication ?Instructions ?Recorded blood-glucose meter #1 ea 07/08/22 blood sugar diagnostic (OneTouch #50 strips 12/04/22 Ultra Test strips) venlafaxine 150 mg See Rx Instructions .Route 03/06/24 capsule,extended release 24 hr .COMPLEX #30 caps losartan 100 mg tablet 100 mg PO DAILY #90 tabs 03/09/24 metformin 500 mg tablet,extended See Rx Instructions .Route 03/09/24 release 24 hr .COMPLEX #90 tabs omeprazole 40 mg capsule,delayed See Rx Instructions .Route 03/09/24 release .COMPLEX #90 caps cariprazine 3 mg capsule (Vraylar) 3 mg PO DAILY #30 caps 03/21/24 ibuprofen 800 mg tablet (IBU) 800 mg PO Q8HP PRN Moderate Pain 03/24/24 #30 tabs Allergies Allergy/AdvReac Type Severity Reaction Status Date / Time Penicillins (PENICILLINS) Allergy Mild Verified 03/09/24 14:53 Worker's Comp Is this a Worker's Comp case?: No [facility] Disclaimer: The information contained in this section may have been updated after the patient was seen, as this information can be updated by other users. Medical History (Updated 03/24/24 @ 16:26 by Tony Naqvi APRN) Exposure to COVID-19 virus Altered mental status Chest pain Cough Rash Acute cystitis Viral upper respiratory infection Left otitis media Cystitis Gastroenteritis Hyperkalemia Interstitial cystitis Cystitis Abnormal electrocardiography Acute viral syndrome Acute bronchitis Encounter for laboratory testing for COVID-19 virus Cellulitis Abnormal cardiovascular stress test Ingrowing Toenail Diarrhea Right otitis media UTI (urinary tract infection) Sleep-wake disorder Globus sensation Esophageal dysmotility GERD (gastroesophageal reflux disease) Increasing shortness of breath Dysphagia Abnormal PFTs (pulmonary function tests) DM2 (diabetes mellitus, type 2) Morbid obesity Abnormal pulmonary function Dyspnea on exertion 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 Hypersomnia Dyspnea Episodic migraine Dyspnea Bipolar II disorder Depression Anxiety History of gastroesophageal reflux (GERD) Migraine Hypertension Obesity Hyperlipidemia Surgical History History of arthroscopy of both shoulders History of cholecystectomy History of hysterectomy History of section Family History Other Cancer Coronary artery disease Diabetes Heart attack Hypertension Social History Smoking Status: Never smoker second hand exposure: Yes alcohol intake: never substance use type: denies use current occupational status: other Travel in the last 8 weeks: None household members: other housing: house number of children: 1 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 current occupational exposures/hazards: No caffeine: Yes Have you lived/traveled outside [place] in past 30 days?: No Contact w/someone who lives/traveled outside [place] past 30 days?: No Exposure to someone with infectious disease in past 14 days?: No Do you have a fever (greater than 100.4 F or 38 C)?: No Have you tested positive for COVID-19: No Exposed to someone with COVID-19 in past 14 days?: No Do you have a sore throat?: No Do you have a cough?: No Do you have any weakness?: No Do you have any diarrhea?: No Are you experiencing any unusual bleeding?: No Do you have any muscle aches/pain?: No Do you have any abdominal pain?: No Are you experiencing loss of taste or smell?: No ROS Obtained: Yes All systems reviewed & no additional complaints except as documented Constitutional Constitutional: Denies chills and Denies fever(s) Eyes Eyes: Denies eye discharge ENT Ears, Nose, Mouth, and Throat: Denies dizziness, Denies otalgia, Denies neck pain and Denies sore throat Cardiovascular Cardiovascular: Denies chest pain Respiratory Respiratory: Denies shortness of breath, Denies chest congestion, Denies cough, Denies stridor and Denies wheezing Gastrointestinal Gastrointestingal: Denies nausea or vomiting Musculoskeletal Musculoskeletal: Reports as per HPI, Denies back pain and Denies neck pain Integumentary/Breasts Skin/Breast: Reports as per HPI and Denies wounds Neurologic Neurologic: Denies dizziness and Denies paresthesias Allergic/Immunologic Allergic/Immunologic: Denies wheezing Physical Exam General General appearance: alert and in no apparent distress Head Head exam: atraumatic, normocephalic and normal inspection Eye Eye exam: Present normal appearance, PERRL and EOMI ENT ENT exam: Present normal exam, normal oropharynx, mucous membranes moist, TM's normal bilaterally and normal external ear exam Neck Neck exam: Present normal inspection, full ROM and trachea midline; Absent meningismus or lymphadenopathy Chest Chest inspection: Present normal inspection and symmetric chest wall rise; Absent tenderness Respiratory Respiratory exam: Present normal lung sounds bilaterally; Absent respiratory distress Cardiovascular Cardiovascular exam: Present regular rate and normal rhythm; Absent JVD Abdominal Exam Abdominal exam: Present soft and normal bowel sounds; Absent distention, tenderness or guarding Extremities Exam Extremities exam: Present normal capillary refill; Absent calf tenderness Expanded Lower Extremity Exam Right: Hip/Pelvis exam: Present full ROM, tenderness and ecchymosis; Absent pelvis stable, swelling, deformity, dislocation, external rotation, internal rotation, shortening of leg, pain on hip/pelvis palpation, hip pain on leg movement, erythema, crepitus, laceration or abrasion Upper leg exam: Present normal inspection and full ROM; Absent tenderness, swelling, abrasion, laceration, ecchymosis, deformity, crepitus, dislocation or erythema Knee exam: Present normal inspection, full ROM and knee extension intact; Absent tenderness Lower leg exam: Present normal inspection, full ROM and Achilles tendon intact; Absent tenderness or Homans' sign Ankle exam: Present normal inspection and full ROM; Absent tenderness, tenderness over talofibular lig or anterior draw sign Foot/toe exam: Present normal inspection; Absent full ROM or tenderness Neurovascular/Tendon exam: Present normal capillary refill, normal 2-point discrimination and normal fine/light touch; Absent pulse deficit, motor deficit, sensory deficit, tendon deficit, extremity cold to touch or pallor Gait: observed and normal Back Exam Back exam: Present normal inspection; Absent tenderness Neurological Exam Neurological exam: Present alert and oriented X3 Psychiatric Psychiatric exam: Present normal affect and normal mood Skin Skin exam: Present warm, dry, intact and normal color Lymphatic Lymphatic Findings: no adenopathy Medical Decision Making Medical Records Medical records reviewed: No I reviewed the patient's medical records. Screening: Per USPSTF and CDC recommendations, given the prevalence of disease in our region, it is our hospital?s policy to screen for HIV and viral Hepatitis for all patients aged 18 and over and those with ongoing risk factors. Mason Inquiry Pt receiving controlled substance: No Vital Signs: 03/24/24 15:35 Temperature 97.9 F Temperature Source Oral Pulse Rate [Left Brachial] 88 Respiratory Rate 20 Blood Pressure [Left Arm] 187/80 H Blood Pressure Mean [Left Arm] 115 Blood Pressure Source [Left Arm] Automatic Cuff Blood Pressure Position [Left Arm] Sitting 02 Sat by Pulse Oximetry 97 Oxygen Delivery Method Room Air Orders (Tests/Meds): ORDERS Category Date Time Status Hip XR right minimum 2 views [XR hip RT 2-3V w/pelvis] Exams 03/24/24 15:38 Ordered Stat Radiology Data #1: Image(s): Hip Image Reviewed: Yes I reviewed the patient's radiology image and Yes I have reviewed radiologist's interpretation Preliminary Findings: No Fracture Seen Accession No. 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 The femoral heads have a normal smooth contour. There is mild hip joint space narrowing. Hypertrophic changes are seen at the acetabular margin. No soft tissue abnormality is seen. IMPRESSION: No acute bony abnormality. Reviewed, Interpreted and Dictated by Shon Bess MD Transcribed by Teresa Pelaez Authenticated and [facility]
[2024-03-24] MEDS: KETOROLAC 60MG/2ML VIAL 60 MG IM (16:50)
[2024-03-24 17:01] VITALS: BP 187/80; PULSE 88; RESP 20; TEMP 36.6; O2SAT 97
== END 2024-03-24 17:02 | disposition home or self-care (01) ==
PROVIDERS: Emergency Provider Nurse Practitioner Family; PCP Nurse Practitioner Family
DX: M25.552 Pain in left hip (principal); S70.02XA Contusion of left hip, initial encounter; W19.XXXA Unspecified fall, initial encounter
CPT/HCPCS: 73502; 96372; 99213; G0381; J1885

== ENCOUNTER 2024-06-26 16:22 | Outpatient (CLI) | payer MEDICARE, MEDICAID, SELFPAY ==
[2024-06-26 18:12] LABS: Basophils % 0.5 % (0.1-2.0); Eosinophils # 0.2 K/mm3 (0.0-0.4); Eosinophils % 1.8 % (0.1-12.0); Hematocrit 40.6 % (37.0-47.0); Hemoglobin 13.4 g/dL (12.2-16.2); Lymphocytes # 2.5 K/mm3 (0.7-4.5); Lymphocytes % 30.4 % (10-50); Mean Corpuscular Hemoglobin 29.5 pg (27.0-31.2); Mean Corpuscular Volume 89.2 fl (81-99); Mean Platelet Volume 10.8 fl (7.4-10.4); Monocytes # 0.8 K/mm3 (0.1-1.0); Monocytes % 9.7 % (1.7-9.3); Neutrophils # 4.7 K/mm3 (1.8-7.8); Neutrophils % 57.2 % (37.0-80.0); Nucleated Red Blood Cells # 0 10^3/uL; Nucleated Red Blood Cells % 0 %; Platelet Count 301 K/mm3 (142-424); Red Blood Count 4.55 M/mm3 (4.20-5.40); Red Cell Distribution Width 13.3 % (11.5-17.5); Red Cell Distribution Width-SD 43.7 fL; White Blood Count 8.2 K/mm3 (4.8-10.8)
[2024-06-26 20:00] LABS: Alanine Aminotransferase 18 U/L (12-78); Albumin Level 3.2 g/dl (3.5-5.0); Alkaline Phosphatase 88 U/L (38-126); Anion Gap 12.3 mEq/L (5-15); Aspartate Amino Transferase 19 U/L (14-36); Bilirubin,Total 0.3 mg/dl (0.2-1.3); Blood Urea Nitrogen 16 mg/dl (7-17); Calcium 8.8 mg/dl (8.4-10.2); Carbon Dioxide 23 mmol/L (22.0-30.0); Chloride 105 mmol/L (98-107); Estimated Glomerular Filt Rate 88 ml/min (>60); GFR (African American) 106 ML/MIN (>60); Globulin 3.2 g/dL (1.3-3.2); Glucose 205 mg/dl (74-100); Potassium 4.3 mmoL/L (3.5-5.1); Sodium 136 mmol/L (136-145); Total Protein,Serum 6.4 g/dl (6.3-8.2)
[2024-06-26 20:24] LABS: Thyroid Stimulating Hormone 3.59 uIU/mL (0.465-4.68)
[2024-06-26 21:50] LABS: Hemoglobin A1C 6.7 % (4.0-6.0)
== END 2024-06-26 23:59 | disposition home or self-care (01) ==
LOC: LAB.DROPOF 06-27 14:29
PROVIDERS: PCP Family Medicine; Visit Provider Family Medicine
DX: I10 Essential (primary) hypertension (principal); E11.9 Type 2 diabetes mellitus without complications
CPT/HCPCS: 80053; 83036; 84443; 85025

== ENCOUNTER 2024-09-26 15:50 | Outpatient (CLI) | payer MEDICARE, MEDICAID, SELFPAY ==
--- OUTSIDE RECORDS SUMMARY | 2024-09-26 15:53 | XMS_ITS | Continuity of Care Document ---
Author Organization [place] - [employer], [facility] Address [address] [place] [address] Assessment No assessment recorded. Plan of Treatment Reminders Order Date Submit Date Provider Last Modified By Organization Details Last Modified Time Details Appointments FOLLOW UP 2024 01:45P [address] Bennett PA-C Not available Not available Not available Lab None recorded. Referral None recorded. Procedures None recorded. Surgeries None recorded. Imaging None recorded. Medication Orders diclofena c sodium 75 mg tablet,de layed release 2024 025 [facility] #[id number], [address], [id number], 09/25/2024 14:04:05 dicyclomi ne 10 mg capsule 2024 025 [facility] #[id number], [address], [id number], 09/25/2024 14:04:15 Ozempic 0.25 mg or 0.5 mg (2 mg/3 mL) subcutane ous pen injector 2024 025 [facility] #[id number], [address], [id number], 09/25/2024 14:04:17 buspirone 15 mg tablet 2024 025 [facility][id number], [address] [address] [place], [id number], 09/25/2024 14:04:14 Patient TargetsNo targets recorded. Patient Instructions Encounter Date Encounter Id Patient Instructions Last Modified By Organization Details Last Modified Time 09/25/2024 [id number] arthritis: care instructions [email or web address] Not available 09/25/2024 14:03:50 Reason for Referral None Reported. Results Created Date Observation Date Name Description Value Unit Range Abnormal Flag Note LastModifiedBy Organization Detail LastModifiedTime 09/06/19 25 08/24/2024 home sleep study No observ ation record ed. [email or web address] [facility] [address], [place], [address], 09/05/2024 16:04:11 09/12/19 25 09/06/2024 home sleep study No observ ation record ed. [email or web address] [facility] [address], [place], [address], 09/11/2024 10:30:39 Result Notes None recorded. Problems Name Problem SNOMED Code Status Onset Date Resolution Date Notes Provider Name and Address Organization Details Recorded Time Fatigue 72003786 Active 2024 TAYLOR Auguste [address] [place] [address], [address], [employer] 13:57:56 Daytime somnolence 517964027480 Active 2024 TAYLOR Auguste [address] [place] [address], [address] 8, [employer] 5 14:00:41 Mixed hyperlipide gudelia 307281549 Active 2024 TAYLOR Auguste [address] [place] [address], [address] 8, [employer] 5 14:04:18 Hypothyroid ism 24636918 Active 2024 TAYLOR Auguste [address] [place] [address], [address] 8, [employer] 14:04:37 Gastroesoph ageal reflux disease without esophagitis 634399678 Active 2024 TAYLOR Auguste [address] [place] [address], [address] 8, [employer] 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 14:58:30 Irritable bowel syndrome with diarrhea 785330645 Active 2024 TAYLOR Auguste [address] [place] [address], [address], [employer] 14:01:57 Anxiety 71021728 Active 2024 TAYLOR Auguste [address] [place] [address], [address] [place] [address] 8, [employer] 14:02:02 Osteoarthri tis 255677767 Active 2024 TAYLOR Auguste [address] [place] [address], [address] 8, [employer] 14:02:24 Hyperglycem ia due to type 2 diabetes mellitus 7759704420197 09 Active 2024 TAYLOR Auguste [address] [place] [address], [address] 8, [employer] 14:02:35 Problem Notes None recorded. Procedures Surgical History Date Name Laterality Status Provider Name and Address Organization Details Recorded Time Caesarean Section completed HOLLEY GUAMAN [employer] 07/25/2024 13:17:50 Hysterectomy completed DIANA [employer] 07/25/2024 13:17:50 Tubal Ligation completed [employer] 07/25/2024 13:17:50 Gallbladder Surgery completed [employer] 07/25/2024 13:17:50 complete repair of rotator cuff completed DIANA YEOMAN [employer] 07/25/2024 13:23:53 Imaging Results None recorded. Procedure Notes None recorded. Medical Equipment None Reported. Allergies Allergen ID Allergen Name Allergen Category Reaction Reaction Severity Criticality Documentation Date Start Date Code Code System Note Provider Name and Address Organization Details Recorded Time 18769 Product containin g penicilli n (product) medicatio n rash Not available Not available 07/25/2024 28544 8001 [facility] [employer] [employer] 13:17:47 Medications Name Sig Start Date Stop Date Status Note LastModified by Organization Details LastModified Time cyclobenzap rine 10 mg tablet TAKE 1 TABLET BY MOUTH THREE TIMES DAILY NEEDED FOR MUSCLE SPASM 07/25 completed Not Available Not Available Not Available furosemide 40 mg tablet TAKE 1 TABLET BY MOUTH TWICE DAILY NEEDED FOR FLUID RETENTION active Not Available Not Available No t Available carvedilol 12.5 mg tablet TAKE 1 TABLET BY MOUTH TWICE DAILY WITH MEAL/FOOD active Not Available Not Available No t Available ibuprofen 800 mg tablet TAKE 1 TABLET BY MOUTH EVERY 8 HOURS NEEDED FOR MODERATE PAIN 07/22 completed Not Available Not Available Not Available promethazin e 12.5 mg tablet TAKE 1 TABLET BY MOUTH THREE TIMES DAILY NEEDED FOR NAUSEA OR VOMITING 07/22 completed Not Available Not Available Not Available prednisone 20 mg tablet TAKE 1 TABLET BY MOUTH TWICE DAILY WITH FOOD FOR 5 DAYS 07/22 completed Not Available Not Available Not Available venlafaxine ER 150 mg capsule,ext ended release 24 hr TAKE 1 CAPSULE BY MOUTH DAILY active Not Available Not Available No t Available omeprazole 40 mg capsule,del ayed release TAKE 1 CAPSULE BY MOUTH DAILY active Not Available Not Available No t Available levothyroxi ne 100 mcg tablet TAKE 1 TABLET BY MOUTH DAILY active Not Available Not Available No t Available famotidine 20 mg tablet TAKE 1 TABLET BY MOUTH DAILY active Not Available Not Available No t Available buspirone 10 mg tablet TAKE 1 TABLET BY MOUTH DAILY active Not Available Not Available No t Available pramipexole 0.25 mg tablet TAKE 1 TABLET BY MOUTH EVERY NIGHT AT BEDTIME active Not Available Not Available No t Available doxazosin 4 mg tablet TAKE 1 TABLET BY MOUTH EVERY NIGHT AT BEDTIME active Not Available Not Available No t Available estradiol 2 mg tablet TAKE 1 TABLET BY MOUTH EVERY DAY FOR HORMONE REPLACEME NT OR FOR SUPPLEMEN T active Not Available Not Available No t Available diclofenac sodium 75 mg tablet,morro yed release Take 1 tablet twice a day by oral route for 90 days. 2024 active Not Available Not Available Not Avai lable gabapentin 100 mg capsule TAKE 1 CAPSULE BY MOUTH TWICE DAILY 09/25 completed Not Available Not Available Not Available ergocalcife rol (vitamin D2) 1,250 mcg (50,000 unit) capsule TAKE 1 CAPSULE BY MOUTH ONCE WEEKLY ON SAME DAY EACH WEEK active Not Available Not Available No t Available losartan 100 mg tablet TAKE 1 TABLET BY MOUTH DAILY active Not Available Not Available No t Available metformin ER 500 mg tablet,exte nded release 24 hr TAKE 1 TABLET BY MOUTH EVERY DAY active Not Available Not Available No t Available dicyclomine 10 mg capsule Take 1 capsule 3 times a day by oral route for 90 days. 2024 active Not Available Not Available Not Avai lable buspirone 15 mg tablet Take 1 tablet twice a day by oral route for 90 days. 2024 active Not Available Not Available Not Avai lable hydroxyzine pamoate 25 mg capsule TAKE 1 CAPSULE BY MOUTH THREE TIMES DAILY active Not Available Not Available No t Available rosuvastati n 40 mg tablet TAKE 1 TABLET BY MOUTH DAILY active Not Available Not Available No t Available Vraylar 3 mg capsule TAKE 1 CAPSULE BY MOUTH DAILY active Not Available Not Available No t Available Ozempic 0.25 mg or 0.5 mg (2 mg/3 mL) subcutaneou s pen injector Inject 0.25 mg every week by subcutane ous route for 28 days. 2024 active Not Available Not Available Not Avai lable Vitals Date Recorded Body height Body mass index (BMI) Body weight Body temperature Heart rate Oxygen saturation Oxygen saturation in Arterial blood by Pulse oximetry Systolic And Diastolic Provider Name and Address Organization Details Last Updated DateTime 5 167.64 cm 54.8 kg/m2 878255. 61 g 98.3 [degF] 79 /min 96 % 96 % 138/85 mm[Hg] [facility] [employer], [facility]. 5 13:35:52 Social History Question Answer Notes LastModified by Organizat ion Details LastModified Time Tobacco Smoking Status Former Smoker DIANA DAVID [employer], [facility] [employer] 07/25/2024 13:17:49 Do You Have An Advance Directive? No [email or web address] Information n ot available 07/25/2024 Is Your Home Air Conditioned? Yes [email or web address] Information not available 07/25/2024 If You Are , What Was Your Level Of Alcohol Consumption Prior To ? None [email or web address] Information not available 07/25/2024 Do You Wear A Helmet When Biking? No [email or web address] Information not available 07/25/2024 Are You Blind Or Do You Have Difficulty Seeing? No [email or web address] Information n ot available 07/25/2024 What Is Your Level Of Caffeine Consumption? Moderate [email or web address] Information not available 07/25/2024 What Type Of Product Director Do You Use? None [email or web address] Information not available 07/25/2024 In The 14 Days Before Symptom Onset, Have You Had Close Contact With A Laboratory-confirm ed COVID-19 While That Case Was Ill? No Information n ot available 09/25/2024 In The 14 Days Before Symptom Onset, Have You Had Close Contact With A Person Who Is Under Investigation For COVID-19 While That Person Was Ill? No Information not available 09/25/2024 Have You Been To An Area Known To Be High Risk For COVID-19? No [email or web address] Information not available 09/25/2024 Are You Deaf Or Do You Have Serious Difficulty Hearing? No [email or web address] Information not available 07/25/2024 What Type Of Diet Are You Following? REGULAR [email or web address] Information n ot available 07/25/2024 What Is The Highest Grade Or Level Of School You Have Completed Or The Highest Degree You Have Received? PA61648-9 [email or web address] Information not available 07/25/2024 Have There Been Any Changes To Your Family Or Social Situation? No [email or web address] Information no t available 07/25/2024 When Did You Quit Smoking? 16+yearssince lastcigarette [email or web address] Information not available 07/25/2024 Are There Any Guns Present In Your Home? No [email or web address] Information not available 07/25/2024 Which Of Your Hands Is Dominant? Right [email or web address] Information n ot available 07/25/2024 What Is Your Home Situation? Other [email or web address] Information not available 07/25/2024 Do You Have A Medical Power Of Contract Clerk Automobile? No [email or web address] Information not available 07/25/2024 What Was The Date Of Your Most Recent Tobacco Screening? 09/25/2024 [email or web address] Information not available 09/25/2024 Do You Have Any Pets? Yes [email or web address] Information not available 07/25/2024 Do You Use Protection During Sex? No [email or web address] Information not available 07/25/2024 What Is Your Relationship Status? [email or web address] Information not available 07/25/2024 Have You Repeated Any Grades? No [email or web address] Information not available 07/25/2024 Do You Use Your Seat Belt Or Car Seat Routinely? Yes [email or web address] Information not available 07/25/2024 Are You Sexually Active? Yes [email or web address] Information not available 07/25/2024 Do You Have Any Siblings? 1 Sister [email or web address] Information not available 07/25/2024 Do You Have Smoke And Carbon Monoxide Detectors In Your Home? No [email or web address] Information not available 07/25/2024 At What Age Did You Start Smoking Tobacco? 16 [email or web address] Information not available 07/25/2024 Are You Passively Exposed To Smoke? Yes [email or web address] Information no t available 07/25/2024 Are There Any Smokers In Your House? Yes [email or web address] Information not available 07/25/2024 How Much Tobacco Do You Smoke? No [email or web address] Information not available 07/25/2024 Do You Use Sunscreen Routinely? No [email or web address] Information not available 07/25/2024 How Many Years Have You Smoked Tobacco? 2 [email or web address] Information not available 07/25/2024 Have You Recently Traveled Abroad? No Information not available 09/25/2024 Do You Have Difficulty Walking Or Climbing Stairs? Yes [email or web address] Information not available 07/25/2024 Sex: Unknown Functional Status Question Answer Note LastModified by Organizat ion Details LastModified Time Do you use any illicit or recreational drugs? No [email or web address] Information not available 07/25/2024 Do you or have you ever used any other forms of tobacco or nicotine? No [email or web address] Information not available 07/25/2024 What is your level of alcohol consumption? None [email or web address] Information not available 07/25/2024 Are you currently employed? No gfktegiqk703 Information not available 07/25/2024 Are you able to walk? YESWOREST [email or web address] Information not available 07/25/2024 Do you have difficulty doing errands alone? No [email or web address] Information not available 07/25/2024 Are you able to care for yourself? Yes [email or web address] Information n ot available 07/25/2024 Do you have difficulty dressing or bathing? Yes [email or web address] Information not available 07/25/2024 What is your exercise level? None [email or web address] Information not available 07/25/2024 Mental Status Question Answer Note LastModified by Organization D etails LastModified Time Do you have difficulty concentrating, remembering or making decisions? Yes [email or web address] Information no t available 07/25/2024 Are you or have you been involved with bullying? No [email or web address] Information not available 07/25/2024 Family History Relationship Description Onset Age of this Age Resolved Age Notes LastModified by Organization Details LastModified Time Father Hypercholest erolemia [email or web address] Not available 13:17:47 Father Arthritis [email or web address] Not avai lable 07/25/2024 13:17:47 Father Hypertensive disorder [email or web address] Not available 13:17:47 Father Heart disease [email or web address] Not available 13:17:47 Father Diabetes mellitus Not available 13:17:47 Mother Hypercholest erolemia [email or web address] Not available 13:17:47 Mother Depressive disorder [email or web address] Not available 13:17:47 Mother Arthritis [email or web address] Not avai lable 07/25/2024 13:17:47 Mother Hypertensive disorder [email or web address] Not available 13:17:47 Maternal Grandmother Malignant tumor of colon [id number] Not available 13:17:47 Sister Depressive disorder [email or web address] Not available 13:17:47 Sister Arthritis [email or web address] Not avai lable 07/25/2024 13:17:47 Sister Hypertensive disorder Not available 13:17:48 Sister Diabetes mellitus [email or web address] Not available 13:17:48 Maternal Grandfather Hypertensive disorder [email or web address] Not available 13:17:48 Paternal Grandfather Heart disease [email or web address] Not available 13:17:48 Medical History Condition Response Diabetes Y Allergies (Food, seasonal, environmental ) Y Anxiety Disorder Y Obesity Y Arthritis Y Hospitalizations N Acid Reflux (GERD) Y Emergency room visit since last appointm ent. N Thyroid Problems Y Depression Y Headaches Y Hypertension Y Gynecological History Statement/Question Response Menses Monthly N HPV Vaccine N Date of Last Pap Smear Most Recent Mammogram Age at First Child 20 Obstetrics History GPAL:G 0 P 0 0 0 0 Immunizations Vaccine Type Date Status Note Provider Nam e and Address Organization Details Recorded Time Tdap 09/28/2012 completed Not Available [facility] 09/25/2024 13:21:13 Influenza, split virus, quadrivalent, PF 12/05/2016 completed Not Available [facility] 13:21:13 Hep A, adult 03/25/2018 completed Not Available [facility] 09/25/2024 13:21:13 Influenza, split virus, quadrivalent, PF 01/31/2020 completed Not Available [facility] 13:21:13 COVID-19, mRNA, LNP-S, PF, 30 mcg/0.3 mL dose 06/29/2020 completed Not Available [facility] 13:21:13 COVID-19, mRNA, LNP-S, PF, 30 mcg/0.3 mL dose 07/20/2020 completed Not Available [facility] 13:21:13 Influenza, split virus, quadrivalent, PF 12/29/2021 completed Not Available [facility] 13:21:13 Influenza, split virus, quadrivalent, PF 01/18/2023 completed Not Available [facility] 13:21:13 Past Encounters Encounter ID Performer Location Encounter Start Date Encounter Closed Date Diagnosis/Indication Diagnosis SNOMED-CT Code Diagnosis ICD10 Code Diagnosis Note [id number] TAYLOR Auguste [facility] [address] [place] [address] 09/25/2024 13:20:55 09/25/2024 14:03:47 Irritable bowel syndrome with diarrhea 089934233 K58.0 Anxiety 13296740 F41.9 Osteoarthritis 421292480 M19.90 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 3713147905 93761 E11.65 Health Concerns Section Related Observation LastModified by Organization Detai ls LastModified Time None Recorded Concern Status LastModified by Organization Details LastModified Time None Recorded Payers Encounter Date Sequence Insurance Name Policy Number Policy Andujar Covered Member ID Andujar Member ID Guarantor Name 09/25/2024 1 [place] Ciera Velasquez [id number] Ciera Velasquez Notes Date Note Type Note Provider Name and Address Organization Details Recorded Time 09/25/2024 text/html Patient presents for followup.History of IBS. Was on dicyclomine in the past It did help but the provider she was seeing is no longer there.Needs refills on diclofenac for arthritisBuspar doesn't seem to be helping anymoreWould like to try Ozempic again. It made her nauseous in the past and she stopped taking it. TAYLOR Auguste [address] [place] [address], [place], [address], [place] [facility] [employer] 09/25/2024 15:32:32 OBGyn Episode No OBEpisode recorded.
--- NOTE | 2024-09-26 15:54 | MM_ITS ---
PROCEDURE INFORMATION: Exam: MG Bilateral Screening 3D Mammography Exam date and time: 09/26/2024 3:53 PM Age: 54 years old Clinical indication: Screening mammogram TECHNIQUE: Imaging protocol: Bilateral Screening tomosynthesis and 2D mammography including computer-aided detection (CAD) when performed. COMPARISON: MG MM DIG SCREENING MAMM BI W/CAD 02/08/2019 11:05 AM FINDINGS: MAMMOGRAPHY: Breast composition: There are scattered areas of fibroglandular density. Mass: None. Architectural distortion: No new or suspicious architectural distortion. Calcifications: No new or suspicious calcifications are present Asymmetric density: No new or suspicious asymmetric density is present Skin thickening: None. Axillary adenopathy: None. IMPRESSION: No mammographic evidence of malignancy. Recommend annual screening mammography unless otherwise clinically indicated. ASSESSMENT: BI-RADS category 1: Negative.
--- OUTSIDE RECORDS SUMMARY | 2024-09-26 15:54 | XMS_ITS | Data Portability ---
Author Organization [facility] [place] - MSE Address [address] [place] [address] Assessment No assessment recorded. Plan of Treatment Reminders Order Date Submit Date Provider Last Modified By Organization Details Last Modified Time Details Appointments FOLLOW UP 15 2024 01:[address] Bennett PA-C Not available Not available Not available Lab HbA1c (hemoglob in A1c), blood [address], [address] [place] [address], [place], [address], 07/25/2024 14:31:14 CRUZIOT + rf (antinucl ear antibodie s + rheumatoi d factor), quantitat carl, serum 2024 025 JYOTI [facility] ([place]), [address] [place], [address], 07/26/2024 12:11:21 ESR (erythroc yte sedimenta tion rate), blood 2024 025 JYOTI [facility] ([place]), [address] [place], [address], 07/26/2024 12:11:22 C reactive protein, QN, serum or plasma 2024 025 JYOTI [facility] ([place]), [address] [place], [address], 07/26/2024 12:11:23 CBC w/ auto diff 2024 025 [facility] ([place]), [address] [place], [address], 07/26/2024 12:11:19 CMP, serum or plasma 2024 025 [facility] ([facility] [place]), [address] [place], [address], 07/26/2024 12:11:19 TSH + free T4, serum 2024 025 [facility] ([facility] [place]), [address] [place], [address], 07/26/2024 12:11:18 cobalamin and folate panel, serum 2024 025 [facility] ([facility] [place]), [address] [place], [address], 07/26/2024 12:11:20 vitamin D, 25-hydrox y, total, serum 2024 025 [facility] ([place] [place]), [address] [place], [address], 07/26/2024 12:11:21 lipid panel, serum 2024 025 [facility] ([facility] [place]), [address] [place], [address], 07/26/2024 12:11:20 Hepatitis C IgG Ab, qual, serum 2024 025 [facility] ([place] [place]), [address] [place], [address], 07/26/2024 12:11:21 HIV 1 + 2, meaningfu l use set 2024 025 [facility] ([place]), [address] [place], [address], 07/26/2024 12:11:22 Referral dermatolo gist referral 2024 025 [email or web address] [address], [address], [place], [address], 08/30/2024 16:08:37 Procedures None recorded. Surgeries None recorded. Imaging MAMMO, screening , bilateral [address] -[facility], [address], [place], [address], 08/10/2024 16:04:13 home sleep study 2024 025 [facility], [address] [facility] [address], [place], [address], 09/05/2024 08:37:54 Medication Orders diclofena c sodium 75 mg tablet,de layed release 2024 025 [id number], [address] [facility] [address], [place], [place], [id number], 09/25/2024 14:04:05 dicyclomi ne 10 mg capsule 2024 025 [id number], [address] [facility] [address], [place], [place], [id number], 09/25/2024 14:04:15 Ozempic 0.25 mg or 0.5 mg (2 mg/3 mL) subcutane ous pen injector 2024 025 [facility]35155, [address] [facility] [address], [place], [place], [id number], 09/25/2024 14:04:17 buspirone 15 mg tablet 2024 025 [facility][id number], [address] [facility] [address], [place], [place], [id number], 09/25/2024 14:04:14 Patient TargetsNo targets recorded. 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) [address] [place], [address], 07/26/2024 12:11:18 07/26/1907/26/2024 TSH+F REE T4 T4,free(dire ct) 1.14 NG/dL 0.82-1 .77 normal Not Available [facility] ([facility]) [address] [place], [address], 07/26/2024 12:11:18 07/26/19 25 07/26/2024 CBC WITH DIFFE RENTI AL/PL ATELE T WBC 8.2 x10e3 /uL 3.4-10 .8 normal Not Available [facility] ([facility]) [address] [place], [address], 07/26/2024 12:11:19 07/26/19 25 07/26/2024 CBC WITH DIFFE RENTI AL/PL ATELE T RBC 4.54 x10e6 /uL 3.77-5 .28 normal Not Available [facility] ([facility]) [address] [place], [address], 07/26/2024 12:11:19 07/26/1907/26/2024 CBC WITH DIFFE RENTI AL/PL ATELE T hemoglobin 13.3 g/dL 11.1-1 5.9 normal Not Available [facility] ([facility]) [address] [place], [address], 07/26/2024 12:11:19 07/26/1907/26/2024 CBC WITH DIFFE RENTI AL/PL ATELE T hematocrit 41.5 % 34.0-4 6.6 normal Not Available [facility] ([facility]) [address] [facility], [place], [address], 07/26/2024 12:11:19 07/26/1907/26/2024 CBC WITH DIFFE RENTI AL/PL ATELE T MCV 91 fL 79-97 normal Not Available [facility] ([facility]) [address] [place], [address], 07/26/2024 12:11:19 07/26/1907/26/2024 CBC WITH DIFFE RENTI AL/PL ATELE T MCH 29.3 pg 26.6-3 3.0 normal Not Available [facility] ([facility]) [address] [place], [address], 07/26/2024 12:11:19 07/26/1907/26/2024 CBC WITH DIFFE RENTI AL/PL ATELE T MCHC 32.0 g/dL 31.5-3 5.7 normal Not Available [facility] ([facility]) [address] [place], [address], 07/26/2024 12:11:19 07/26/1907/26/2024 CBC WITH DIFFE RENTI AL/PL ATELE T RDW 13.2 % 11.7-1 5.4 Not Available [facility] ([facility]) [address] [facility], [place], [address], 07/26/2024 12:11:19 07/26/1907/26/2024 CBC WITH DIFFE RENTI AL/PL ATELE T platelets 235 x10e3 /uL 150-45 0 normal Not Available [facility] ([facility]) [address] [facility], [place], [address], 07/26/2024 12:11:19 07/26/1907/26/2024 CBC WITH DIFFE RENTI AL/PL ATELE T neutrophils 62 % not estab. normal Not Available [facility] ([facility]) [address] [facility], [place], [address], 07/26/2024 12:11:19 07/26/1907/26/2024 CBC WITH DIFFE RENTI AL/PL ATELE T lymphs 29 % not estab. normal Not Available [facility] ([facility]) [address] [facility], [place], [address], 07/26/2024 12:11:19 07/26/1907/26/2024 CBC WITH DIFFE RENTI AL/PL ATELE T monocytes 6 % not estab. normal Not Available [facility] ([facility]) [address] [facility], [place], [address], 07/26/2024 12:11:19 07/26/1907/26/2024 CBC WITH DIFFE RENTI AL/PL ATELE T eos 2 % not estab. normal Not Available [facility] ([facility]) [address] [facility], [place], [address], 07/26/2024 12:11:19 07/26/1907/26/2024 CBC WITH DIFFE RENTI AL/PL ATELE T basos 0 % not estab. normal Not Available [facility] ([facility]) [address] [facility], [place], [address], 07/26/2024 12:11:19 07/26/19 25 07/26/2024 CBC WITH DIFFE RENTI AL/PL ATELE T immature cells SURFACE [employer] Not Available [facility] ([facility]) [address] [place], [address], 07/26/2024 12:11:19 07/26/1907/26/2024 CBC WITH DIFFE RENTI AL/PL ATELE T neutrophils (absolute) 5.2 x10e3 /uL 1.4-7. 0 normal Not Available [facility] ([facility]) [address] [place], [address], 07/26/2024 12:11:19 07/26/19 25 07/26/2024 CBC WITH DIFFE RENTI AL/PL ATELE T lymphs (absolute) 2.4 x10e3 /uL 0.7-3. 1 normal Not Available [facility] ([facility]) [address] [place], [address], 07/26/2024 12:11:19 07/26/19 25 07/26/2024 CBC WITH DIFFE RENTI AL/PL ATELE T monocytes(ab solute) 0.5 x10e3 /uL 0.1-0. 9 normal Not Available [facility] ([facility]) [address] [place], [address], 07/26/2024 12:11:19 07/26/1907/26/2024 CBC WITH DIFFE RENTI AL/PL ATELE T eos (absolute) 0.1 x10e3 /uL 0.0-0. 4 normal Not Available [facility] ([facility]) [address] [place], [address], 07/26/2024 12:11:19 07/26/19 25 07/26/2024 CBC WITH DIFFE RENTI AL/PL ATELE T baso (absolute) 0.0 x10e3 /uL 0.0-0. 2 normal Not Available [facility] ([facility]) [address] [facility], [place], [address], 07/26/2024 12:11:19 07/26/1907/26/2024 CBC WITH DIFFE RENTI AL/PL ATELE T immature granulocytes 1 % not estab. Not Available [facility] ([facility]) [address] [facility], [place], [address], 07/26/2024 12:11:19 07/26/19 25 07/26/2024 CBC WITH DIFFE RENTI AL/PL ATELE T immature grans (abs) 0.1 x10e3 /uL 0.0-0. 1 Not Available [facility] ([facility]) [address] [facility], [place], [address], 07/26/2024 12:11:19 07/26/1907/26/2024 CBC WITH DIFFE RENTI AL/PL ATELE T NRBC [employer]FACE [employer] Not Available [facility] ([facility]) [address] [facility], [place], [address], 07/26/2024 12:11:19 07/26/1907/26/2024 CBC WITH DIFFE RENTI AL/PL ATELE T hematology comments: SURFACE [employer] Not Available [facility] ([facility]) [address] [facility], [place], [address], 07/26/2024 12:11:19 07/26/1907/26/2024 COMP. METAB OLIC PANEL (14) glucose 242 mg/dL 70-99 above high normal Not Available [facility] ([facility]) [address] [facility], [place], [address], 07/26/2024 12:11:19 07/26/19 25 07/26/2024 COMP. METAB OLIC PANEL (14) BUN 14 mg/dL 6-24 normal Not Available [facility] ([facility]) [address] [place], [address], 07/26/2024 12:11:19 07/26/19 25 07/26/2024 COMP. METAB OLIC PANEL (14) creatinine 0.83 mg/dL 0.57-1 .00 normal Not Available [facility] ([facility]) [address] [facility], [place], [address], 07/26/2024 12:11:19 07/26/19 25 07/26/2024 COMP. METAB OLIC PANEL (14) eGFR 84 mL/mi n/1.7 3 >59 normal Not Available [facility] ([facility]) [address] [facility], [place], [address], 07/26/2024 12:11:19 07/26/19 25 07/26/2024 COMP. METAB OLIC PANEL (14) BUN/creatini ne ratio 17 9-23 normal Not Available [facility] ([facility]) [address] [facility], [place], [address], 07/26/2024 12:11:19 07/26/19 25 07/26/2024 COMP. METAB OLIC PANEL (14) sodium 137 mmol/ L 134-14 4 normal Not Available [facility] ([facility]) [address] [place], [address], 07/26/2024 12:11:19 07/26/19 25 07/26/2024 COMP. METAB OLIC PANEL (14) potassium 4.2 mmol/ L 3.5-5. 2 normal Not Available [facility] ([facility]) [address] [facility], [place], [address], 07/26/2024 12:11:19 07/26/19 25 07/26/2024 COMP. METAB OLIC PANEL (14) chloride 102 mmol/ L 96-106 normal Not Available [facility] ([facility]) [address] [facility], [place], [address], 07/26/2024 12:11:19 07/26/19 07/26/2024 COMP. METAB OLIC PANEL (14) carbon dioxide, total 20 mmol/ L 20-29 normal Not Available [facility] ([facility]) [address] [facility] [place], [address], 07/26/2024 12:11:19 07/26/19 25 07/26/2024 COMP. METAB OLIC PANEL (14) calcium 9.0 mg/dL 8.7-10 .2 normal Not Available [facility] ([facility]) [address] [place], [address], 07/26/2024 12:11:19 07/26/1907/26/2024 COMP. METAB OLIC PANEL (14) protein, total 6.3 g/dL 6.0-8. 5 normal Not Available [facility] ([facility]) [address] [place], [address], 07/26/2024 12:11:19 07/26/1907/26/2024 COMP. METAB OLIC PANEL (14) albumin 3.6 g/dL 3.8-4. 9 below low normal Not Available [facility] ([facility]) [address] [place], [address], 07/26/2024 12:11:19 07/26/1907/26/2024 COMP. METAB OLIC PANEL (14) globulin, total 2.7 g/dL 1.5-4. 5 Not Available [facility] ([facility]) [address] [place], [address], 07/26/2024 12:11:19 07/26/1907/26/2024 COMP. METAB OLIC PANEL (14) bilirubin, total <0.2 mg/dL 0.0-1. 2 Not Available [facility] ([facility]) [address] [place], [address], 07/26/2024 12:11:19 07/26/19 25 07/26/2024 COMP. METAB OLIC PANEL (14) alkaline phosphatase 80 IU/L 44-121 normal Not Available [facility] ([facility]) [address] [facility] [place], [address], 07/26/2024 12:11:19 07/26/19 25 07/26/2024 COMP. METAB OLIC PANEL (14) AST (SGOT) 14 IU/L 0-40 normal Not Available [facility] ([facility]) [address] [facility] [place], [address], 07/26/2024 12:11:19 07/26/19 25 07/26/2024 COMP. METAB OLIC PANEL (14) ALT (SGPT) 16 IU/L 0-32 normal Not Available [facility] ([facility]) [address] [facility] [place], [address], 07/26/2024 12:11:19 07/26/19 25 07/26/2024 LIPID PANEL cholesterol, total 131 mg/dL 100-19 9 normal Not Available [facility] ([facility]) [address] [place], [address], 07/26/2024 12:11:20 07/26/19 25 07/26/2024 LIPID PANEL triglyceride s 170 mg/dL 0-149 above high normal Not Available [facility] ([facility]) [address] [place], [address], 07/26/2024 12:11:20 07/26/19 25 07/26/2024 LIPID PANEL HDL cholesterol 53 mg/dL >39 normal Not Available [facility] ([facility]) [address] [place], [address], 07/26/2024 12:11:20 07/26/19 25 07/26/2024 LIPID PANEL VLDL cholesterol evelyne 28 mg/dL 5-40 Not Available [facility] ([facility]) [address] [place], [address], 07/26/2024 12:11:20 07/26/19 25 07/26/2024 LIPID PANEL LDL chol calc ([facility]) 50 mg/dL 0-99 Not Available [facility] ([facility]) [address] [facility], [place], [address], 07/26/2024 12:11:20 07/26/19 25 07/26/2024 LIPID PANEL LDL calc comment: SURFACE [employer] Not Available [facility] ([facility]) [address] [facility], [place], [address], 07/26/2024 12:11:20 07/26/1907/26/2024 VITAM IN B12 AND FOLAT E vitamin B12 502 pg/mL 232-12 45 normal Not Available [facility] ([facility]) [address] [facility], [place], [address], 07/26/2024 12:11:20 07/26/1907/26/2024 VITAM IN B12 AND FOLAT E folate (folic acid), serum 4.3 NG/mL >3.0 normal A serum folat e abilio ntrat ion of less than 3.1 ng/mL is consi dered to repre sent clini evelyne defic iency . Not Available [facility] ([facility]) [address] [facility], [place], [address], 07/26/2024 12:11:20 07/26/1907/26/2024 CRUZITO+R F QN CRUZITO direct Negati ve negati ve Not Available [facility] ([facility]) [address] [facility], [place], [address], 07/26/2024 12:11:21 07/26/1907/26/2024 CRUZITO+R F QN rheumatoid factor (rf) <10.0 IU/mL <14.0 Not Available [facility] ([facility]) [address] [facility], [place], [address], 07/26/2024 12:11:21 07/26/1907/26/2024 HCV ANTIB AVIS RFX TO QUANT PCR HCV Ab Non Reacti ve non reacti ve Not Available [facility] ([facility]) [address] [facility], [place], [address], 07/26/2024 12:11:21 07/26/1907/26/2024 HCV ANTIB AVIS RFX TO QUANT PCR interpretati on: Commen t Not infec nathalia with HCV unles s early or acute infec tion is suspe cted (whic h may be delay ed in an immun ocomp romis ed indiv idual ), or other evide nce exist s to indic ate HCV infec tion. Not Available [facility] ([facility]) [address] [facility], [place], [address], 07/26/2024 12:11:21 07/26/1907/26/2024 VITAM IN D, 25-HY DROXY vitamin D, 25-hydroxy 92.6 NG/mL 30.0-1 00.0 Vitam in D defic iency has been defin ed by the Insti tute of Medic ine and an Endoc rine Socie ty pract ice guide line as a level of serum 25-OH vitam in D less than 20 ng/mL (1,2) . The Endoc rine Socie ty went on to furth er defin e vitam in D insuf ficie ncy as a level betwe en 21 and 29 ng/mL (2). 1. IOM (Inst itute of Medic ine). 2010. Dieta ry refer ence intak es for calci um and D. Markel galindo [place]: The Natio nal [facility] Press . 2. Reji schultz [place], Sal romano [place], Isaias off-F errar i BRISCOE, et al. Evalu ation , treat ment, and preve ntion of vitam in D defic iency : an Endoc rine Socie ty clini evelyne pract ice guide line. JCEM. 2010; 96(7) :1911 -30. Not Available [facility] ([facility]) [address] [facility], [place], [address], 07/26/2024 12:11:21 07/26/19 25 07/26/2024 HIV AB/P2 4 AG WITH REFLE X HIV Ab/P24 Ag screen Non Reacti ve non reacti ve HIV Negat carl HIV-1 /HIV- 2 antib odies and HIV-1 p24 antig en were NOT detec nathalia. There is no labor atory evide nce of HIV infec tion. Not Available [facility] ([facility]) [address] [facility], [place], [address], 07/26/2024 12:11:22 07/26/19 25 07/26/2024 SEDIM ENTAT ION RATE- WESTE RGREN sedimentatio n rate-westerg brianna 48 mm/HR 0-40 above high normal Not Available [facility] ([facility]) [address] [facility], [place], [address], 07/26/2024 12:11:22 07/26/19 25 07/26/2024 C-CAMILLA CTIVE PROTE IN, QUANT C-reactive protein, quant 2 mg/L 0-10 normal Not Available [facility] ([facility]) [address] [facility], [place], [address], 07/26/2024 12:11:23 07/26/19 25 07/25/2024 HbA1c (hemo globi n A1c), blood HbA1c 7.0 Not Available [address], [place], [address], 07/25/2024 13:25:01 09/06/19 25 08/24/2024 home sleep study No observ ation record ed. [email or web address] [facility] [address] [facility] [address], [place], [address], 09/05/2024 16:04:11 09/12/19 25 09/06/2024 home sleep study No observ ation record ed. [email or web address] [facility] [address] [facility] [address], [place], [address], 09/11/2024 10:30:39 Result Notes None recorded. Problems Name Problem SNOMED Code Status Onset Date Resolution Date Notes Provider Name and Address Organization Details Recorded Time Fatigue 52633843 Active 2024 TAYLOR Auguste [address] [place] [address], [address], [email or web address] 13:57:56 Daytime somnolence 638526500785 Active 2024 TAYLOR Auguste [address] [place] [address], [address], [email or web address] 14:00:41 Mixed hyperlipide gudelia 921031309 Active 2024 TAYLOR Auguste [address] [place] [address], [address], [email or web address] 14:04:18 Hypothyroid ism 10676015 Active 2024 TAYLOR Auguste [address] [place] [address], [address], [email or web address] 14:04:37 Gastroesoph ageal reflux disease without esophagitis 026577833 Active 2024 TAYLOR Auguste [address] [place] [address], [address], [email or web address] 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 14:58:30 Irritable bowel syndrome with diarrhea 562007085 Active 2024 TAYLOR Auguste [address] [place] [address], [address], [email or web address] 14:01:57 Anxiety 12917217 Active 2024 TAYLOR Auguste [address] [place] [address], [address], [employer] 14:02:02 Osteoarthri tis 769464824 Active 2024 TAYLOR Auguste [address] [place] [address], [address] [place] [address] 8, [employer] 5 14:02:24 Hyperglycem ia due to type 2 diabetes mellitus 7975583015770 09 Active 2024 TAYLOR Auguste [address] [place] [address], [address], [employer]. 14:02:35 Problem Notes None recorded. Procedures Surgical History Date Name Laterality Status Provider Name and Address Organization Details Recorded Time [facility] 13:17:50 [facility] 13:17:50 Tubal Ligation completed [facility] [employer] [facility] 07/25/2024 13:17:50 Gallbladder Surgery completed [facility] [employer] [facility] 07/25/2024 13:17:50 complete repair of rotator cuff completed [facility] [employer] [facility] 07/25/2024 13:23:53 Imaging Results None recorded. Procedure Notes None recorded. Medical Equipment None Reported. Allergies Allergen ID Allergen Name Allergen Category Reaction Reaction Severity Criticality Documentation Date Start Date Code Code System Note Provider Name and Address Organization Details Recorded Time 92440 Product containin g penicilli n (product) medicatio n rash Not available Not available 07/25/2024 73177 8001 SNOMED [facility] [employer] [facility] 13:17:47 Medications Name Sig Start Date Stop [...] Not Avai lable Vitals Date Recorded Body weight Body mass index (BMI) Body height Heart rate Oxygen saturation Oxygen saturation in Arterial blood by Pulse oximetry Systolic And Diastolic Provider Name and Address Organization Details Last Updated DateTime 707421. 81 g 54.7 kg/m2 167.64 cm 73 /min 97 % 97 % 153/85 mm[Hg] DIANA HERNANDEZ [email or web address]. 13:26:32 Date Recorded Body height Body mass index (BMI) Body weight Body temperature Heart rate Oxygen saturation Oxygen saturation in Arterial blood by Pulse oximetry Systolic And Diastolic Provider Name and Address Organization Details Last Updated DateTime 167.64 cm 54.8 kg/m2 037760. 61 g 98.3 [degF] 79 /min 96 % 96 % 138/85 mm[Hg] Chiqui Chiang [email or web address] 13:35:52 Social History Question Answer Notes LastModified by Organizat ion Details LastModified Time Tobacco Smoking Status Former Smoker DIANA garzon [email or web address] 07/25/2024 13:17:49 Do You Have An Advance Directive? No [email or web address] Information n ot available 07/25/2024 Is Your Home Air Conditioned? Yes [email or web address] Information not available 07/25/2024 If You Are , What Was Your Level Of Alcohol Consumption Prior To ? None [email or web address] Information not available 07/25/2024 Do You Wear A Helmet When Biking? No [email or web address] Information not available 07/25/2024 Are You Blind Or Do You Have Difficulty Seeing? No [email or web address] Information n ot available 07/25/2024 What Is Your Level Of Caffeine Consumption? Moderate [email or web address] Information not available 07/25/2024 What Type Of Globe Cleaner Do You Use? None [email or web address] Information not available 07/25/2024 In The 14 Days Before Symptom Onset, Have You Had Close Contact With A Laboratory-confirm ed COVID-19 While That Case Was Ill? No [email or web address] Information n ot available 09/25/2024 In The 14 Days Before Symptom Onset, Have You Had Close Contact With A Person Who Is Under Investigation For COVID-19 While That Person Was Ill? No Information not available 09/25/2024 Have You Been To An Area Known To Be High Risk For COVID-19? No [email or web address] Information not available 09/25/2024 Are You Deaf Or Do You Have Serious Difficulty Hearing? No [email or web address] Information not available 07/25/2024 What Type Of Diet Are You Following? REGULAR [email or web address] Information n ot available 07/25/2024 What Is The Highest Grade Or Level Of School You Have Completed Or The Highest Degree You Have Received? [id number] Information not available 07/25/2024 Have There Been Any Changes To Your Family Or Social Situation? No [email or web address] Information no t available 07/25/2024 When Did You Quit Smoking? 16+yearssince lastcigarette [email or web address] Information not available 07/25/2024 Are There Any Guns Present In Your Home? No [email or web address] Information not available 07/25/2024 Which Of Your Hands Is Dominant? Right [email or web address] Information n ot available 07/25/2024 What Is Your Home Situation? Other [email or web address] Information not available 07/25/2024 Do You Have A Medical Power Of Customs Verifier? No [email or web address] Information not available 07/25/2024 What Was The Date Of Your Most Recent Tobacco Screening? 09/25/2024 [email or web address] Information not available 09/25/2024 Do You Have Any Pets? Yes Information not available 07/25/2024 Do You Use Protection During Sex? No [email or web address] Information not available 07/25/2024 What Is Your Relationship Status? [email or web address] Information not available 07/25/2024 Have You Repeated Any Grades? No [email or web address] Information not available 07/25/2024 Do You Use Your Seat Belt Or Car Seat Routinely? Yes [email or web address] Information not available 07/25/2024 Are You Sexually Active? Yes Information not available 07/25/2024 Do You Have Any Siblings? 1 Sister [email or web address] Information not available 07/25/2024 Do You Have Smoke And Carbon Monoxide Detectors In Your Home? No [email or web address] Information not available 07/25/2024 At What Age Did You Start Smoking Tobacco? 16 [email or web address] Information not available 07/25/2024 Are You Passively Exposed To Smoke? Yes [email or web address] Information no t available 07/25/2024 Are There Any Smokers In Your House? Yes [email or web address] Information not available 07/25/2024 How Much Tobacco Do You Smoke? No [email or web address] Information not available 07/25/2024 Do You Use Sunscreen Routinely? No [email or web address] Information not available 07/25/2024 How Many Years Have You Smoked Tobacco? 2 [email or web address] Information not available 07/25/2024 Have You Recently Traveled Abroad? No [email or web address] Information not available 09/25/2024 Do You Have Difficulty Walking Or Climbing Stairs? Yes [email or web address] Information not available 07/25/2024 Sex: Unknown Functional Status Question Answer Note LastModified by Organizat ion Details LastModified Time Do you use any illicit or recreational drugs? No [email or web address] Information not available 07/25/2024 Do you or have you ever used any other forms of tobacco or nicotine? No [email or web address] Information not available 07/25/2024 What is your level of alcohol consumption? None yysgiyihm389 Information not available 07/25/2024 Are you currently employed? No dhdxosfym340 Information not available 07/25/2024 Are you able to walk? YESWOREST tdbrlylwz070 Information not available 07/25/2024 Do you have difficulty doing errands alone? No [email or web address] Information not available 07/25/2024 Are you able to care for yourself? Yes [email or web address] Information n ot available 07/25/2024 Do you have difficulty dressing or bathing? Yes jxneetlob355 Information not available 07/25/2024 What is your exercise level? None [email or web address] Information not available 07/25/2024 Mental Status Question Answer Note LastModified by Organization D etails LastModified Time Do you have difficulty concentrating, remembering or making decisions? Yes [email or web address] Information no t available 07/25/2024 Are you or have you been involved with bullying? No [email or web address] Information not available 07/25/2024 Family History Relationship Description Onset Age of this Age Resolved Age Notes LastModified by Organization Details LastModified Time Father Hypercholest erolemia [email or web address] Not available 13:17:47 Father Arthritis [email or web address] Not avai lable 07/25/2024 13:17:47 Father Hypertensive disorder [id number] Not available 13:17:47 Father Heart disease Not available 13:17:47 Father Diabetes mellitus [email or web address] Not available 13:17:47 Mother Hypercholest erolemia Not available 13:17:47 Mother Depressive disorder [id number] Not available 13:17:47 Mother Arthritis [id number] Not avai lable 07/25/2024 13:17:47 Mother Hypertensive disorder [email or web address] Not available 13:17:47 Maternal Grandmother Malignant tumor of colon bpzsxvmri321 Not available 13:17:47 Sister Depressive disorder [id number] Not available 13:17:47 Sister Arthritis [email or web address] Not avai lable 07/25/2024 13:17:47 Sister Hypertensive disorder [email or web address] Not available 13:17:48 Sister Diabetes mellitus [email or web address] Not available 13:17:48 Maternal Grandfather Hypertensive disorder [email or web address] Not available 13:17:48 Paternal Grandfather Heart disease [email or web address] Not available 13:17:48 Medical History Condition Response Diabetes Y Anxiety Disorder Y Allergies (Food, seasonal, environmental ) Y Obesity Y Arthritis Y Hospitalizations N [...] Recorded Time Tdap 09/28/2012 completed Not Available [facility] 09/25/2024 13:21:13 Influenza, split virus, quadrivalent, PF 12/05/2016 completed Not Available [facility] 5 13:21:13 Hep A, adult 03/25/2018 completed Not Available [facility] 09/25/2024 13:21:13 Influenza, split virus, quadrivalent, PF 01/31/2020 completed Not Available [facility] 13:21:13 COVID-19, mRNA, LNP-S, PF, 30 mcg/0.3 mL dose 06/29/2020 completed Not Available [facility] 13:21:13 COVID-19, mRNA, LNP-S, PF, 30 mcg/0.3 mL dose 07/20/2020 completed Not Available [facility] 13:21:13 Influenza, split virus, quadrivalent, PF 12/29/2021 completed Not Available [facility] 13:21:13 Influenza, split virus, quadrivalent, PF 01/18/2023 completed Not Available [facility] 5 13:21:13 Past Encounters Encounter ID Performer Location Encounter Start Date Encounter Closed Date Diagnosis/Indication Diagnosis SNOMED-CT Code Diagnosis ICD10 Code Diagnosis Note [id number] TAYLOR Auguste [facility] [address] [place] [address] 07/25/2024 13:06:10 07/25/2024 14:49:08 Type 2 diabetes mellitus 63360001 E11.9 Fatigue 92049216 R53.82 Screening mammography 24 547396 Z12.31 Daytime somnolence 77628 57349 00 R40.0 Essential hypertension 68493256 I10 Mixed hyperlipidemia 267 599222 E78.2 Hypothyroidism 10396933 E03.9 Gastroesop hageal reflux disease without esophagitis 709092504 K21.9 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 [id number] TAYLOR Auguste [facility] [address] [place] [address] 09/25/2024 13:20:55 09/25/2024 14:03:47 Irritable bowel syndrome with diarrhea 360785218 K58.0 Anxiety 04630813 F41.9 Osteoarthritis 467409945 M19.90 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 4107792152 24147 E11.65 Health Concerns Section Related Observation LastModified by Organization Detai ls LastModified Time None Recorded Concern Status LastModified by Organization Details LastModified Time None Recorded Advance Directives Directive N: Payers Insurance Date Sequence Insurance Name Policy Number Policy Andujar Covered Member ID Andujar Member ID Guarantor Name 09/22/2024 [place]ICARE [place]: [employer] [facility] Ciera Velasquez [id number] 4 Ciera Velasquez 09/22/2024 1 [place] Ciera Velasquez [id number] 4 Ciera Velasquez 09/26/2024 2 UNSPECIFIED REMIT PAYOR Ciera Joynerggins Notes Date Note Type Note Provider Name and Address Organization Details Recorded Time 07/25/2024 text/html Ms Velasquez prese nts to establish care at [facility].History of diabetes. Today's HgA1c 7.0%.History of HTN. States that she is compliant with meds. Denies headache, chest pain, vertigo, dyspnea.History of GERD. Fairly well controlled with current meds.States that she is tired all the time. She states that she has been extremely tired since she had COVID 3 years ago. TAYLOR Auguste [address] [place] [address], [id number], [place] [facility] [employer] [facility] 07/25/2024 15:56:10 09/25/2024 text/html Patient presents for followup.History of IBS. Was on dicyclomine in the past It did help but the provider she was seeing is no longer there.Needs refills on diclofenac for arthritisBuspar doesn't seem to be helping anymoreWould like to try Ozempic again. It made her nauseous in the past and she stopped taking it. TAYLOR Auguste [address] [place], [address], [facility] [employer] 09/25/2024 15:32:32 OBGyn Episode No OBEpisode recorded.
== END 2024-09-26 23:59 | disposition home or self-care (01) ==
LOC: RAD 15:52
PROVIDERS: PCP Physician Assistant; Visit Provider Physician Assistant
DX: Z12.31 Encounter for screening mammogram for malignant neoplasm of breast (principal); R92.323 Mammographic fibroglandular density, bilateral breasts
CPT/HCPCS: 77063; 77067